=== PATIENT | female | born 1955 | race Caucasian/White ===

== ENCOUNTER 2020-11-07 13:04 | Day surgery (SDC) | payer MEDICARE ==
[2020-11-04 10:21] VITALS: BMI 29.2
[~2020-11-07 13:04] MED LIST: ACETAMINOPHEN TAB 500 MG TAB PO PRN; DEXAMETHASONE SOD PHOSPHATE 4 MG/ML 1 ML VIAL IV ONE; HYDROcodone/APAP 7.5-325MG 1 EACH TAB PO PRN; HYDROmorphone 0.2 MG/1 ML SYRINGE IVP PRN; HYDROmorphone 0.5 MG/0.5 ML SYRINGE IVP PRN; METOCLOPRAMIDE 5 MG/ML 2 ML VIAL IVP PRN; ONDANSETRON 4 MG/2 ML VIAL IVP ONE; ONDANSETRON 4 MG/2 ML VIAL IVP PRN; PROCHLORPERAZINE SUPPOSITORY 25 MG SUPP RECTAL PRN; ROPIVACAINE/EPI/CLONIDINE/KET 50 ML SYRINGE MISCELLANE PRN; SENNOSIDES-DOCUSATE SODIUM 1 EACH TAB PO PRN; TRANEXAMIC ACID 1,000 MG in SODIUM CHLORIDE 0.9% 100 ML IVPB PRN; diphenhydrAMINE 25 MG CAP PO PRN; hydrOXYzine pamoate 25 MG CAP PO PRN
[2020-11-07] MEDS ORDERED: LIDOCAINE 1% (10MG/ML) FOR IV START INTRADERMA ONE (13:58)
[2020-11-07] MEDS: LACTATED RINGERS 1,000 ML IV SCH ×3 (13:58→21:46)
[2020-11-07] MEDS ORDERED: MIDAZOLAM 2 MG/2 ML VIAL IVP ONE (14:14)
[2020-11-07] MEDS ORDERED: SODIUM CHLORIDE 0.9% 100 ML BAG ONE (14:19)
[2020-11-07] MEDS ORDERED: HYDROmorphone (PF) 1 MG/ML ONE (14:19)
[2020-11-07] MEDS ORDERED: SUCCINYLCHOLINE CHLORIDE 100 MG/5 ML SYR IV ONE (14:19)
[2020-11-07] MEDS ORDERED: TRANEXAMIC ACID 1,000 MG/10 ML VIAL ONE (14:19)
[2020-11-07] MEDS ORDERED: MIDAZOLAM 2 MG/2 ML VIAL ONE (14:19)
[2020-11-07] MEDS ORDERED: LIDOCAINE 1% INJ 10MG/ML (20 ML MDV) ONE (14:19)
[2020-11-07] MEDS ORDERED: PHENYLEPHRINE-0.9% NACL SYG 1,000 MCG/10 ML SYRINGE ONE (14:19)
[2020-11-07] MEDS ORDERED: PROPOFOL 10 MG/ML 20 ML VIAL IV ONE (14:19)
[2020-11-07] MEDS ORDERED: fentaNYL (PF) 50 MCG/ML 2 ML AMP ONE (14:19)
[2020-11-07] MEDS ORDERED: ceFAZolin 1,000 MG in SODIUM CHLORIDE 0.9% 1,000 ML IRRIGATION ONE (14:59)
--- NOTE | 2020-11-07 16:40 | FL ---
Fluoroscopy and limited right shoulder HISTORY: Pain 63 seconds fluoroscopy time supplied to the referring clinician. 3 intraoperative C-arm images docum ent the procedure. See dictated report from orthopedic surgery.
[2020-11-07] MEDS: HYDROmorphone 0.5 MG/0.5 ML SYRINGE IVP PRN ×3 (16:59→17:09)
[2020-11-07] MEDS ORDERED: ONDANSETRON 4 MG/2 ML VIAL IVP ONE (17:18)
[2020-11-07] MEDS ORDERED: MEPERIDINE 50 MG/ML SYRINGE IVP ONE (17:37)
[2020-11-07] MEDS: HYDROcodone/APAP 7.5-325MG 1 EACH TAB PO PRN ×2 (18:32→23:15)
--- NOTE | 2020-11-07 20:06 | XR ---
EXAMINATION TYPE: XR shoulder limited RT DATE OF EXAM: 11/07/2020 COMPARISON: NONE HISTORY: . Post op. TECHNIQUE: Single frontal view of the right shoulder obtained FINDINGS/IMPRESSION: Patient is status post plate and screw fixation of the comminuted right humeral head fracture deformity. Numerous displaced osseous fragments redemonstrated. Soft tissue gas and cut aneous irregularity as expected postoperatively. No unexpected radiopaque foreign body.
[2020-11-07] MEDS ORDERED: MONTELUKAST 10 MG TAB PO SCH (21:58)
--- NOTE | 2020-11-07 23:10 | OP ---
OPERATIVE REPORT DATE OF PROCEDURE: 11/07/2020. SURGEON: Sekou Martínez MD. WELDER/INSTALLER: Farshad SALINAS. PREOPERATIVE DIAGNOSIS: Right displaced 2 part proximal humerus fracture. POSTOPERATIVE DIAGNOSIS: Right displaced 2 part proximal humerus fracture. PROCEDURE PERFORMED: Open reduction, internal fixation, right proximal humerus fracture. ANESTHESIA: General endotracheal. ESTIMATED BLOOD LOSS: Was 250 mL. TOURNIQUET: None. DRAINS: None. COMPLICATIONS: None apparent. DISPOSITION: Postanesthesia care unit. INDICATIONS: Aline is a very pleasant 64-year-old female who tripped and fell over a dog a little over 2 weeks ago per history. She initially presented to the emergency department. She was put in a sling and then discharged from the emergency department. She did end up in our office. She was first seen by one of our physician assistants and then she was referred to me for definitive management. She did have a completely displaced two part proximal humerus fracture. Recommendation was for open reduction internal fixation of her proximal humerus fracture. Of note, she does have many allergies. One allergy in particular that she was very adamant about was that she was ALLERGIC TO BONE CEMENT. Apparently she had some preoperative testing in the past and she was ALLERGIC TO BONE CEMENT. I did explain to her that this would likely preclude her from an arthroplasty option for fracture. As such, the recommendation was to go forward with an open reduction and internal fixation. The risks of procedure were discussed with her in detail. These risks included, but were not limited to risk of infection, nerve damage, bleeding, pain, and a small risk of deep vein thrombosis which could lead to fatal pulmonary embolism. Further risks include lack of healing of the fracture, failure of the hardware, symptomatic hardware, avascular necrosis of the humeral head, and stiffness in the arm. The patient understands the operation as well as the fact that there is no guarantee of improvement of her symptoms. Appropriate informed consent was obtained. DESCRIPTION OF PROCEDURE: The patient identified in the preoperative holding area. Surgical sites marked by both the patient and myself. She was given 2 grams of Ancef IV for prophylactic purposes. She was then transported to the operative suite. She was placed supine on the operative table. A general anesthetic was then administered and dosed per the anesthesia without apparent complication. She was then placed into the beach chair position well-padded in preparation for surgery. Great care was taken to ensure that her cervical spine is in neutral alignment, well-padded and maintained that way throughout the operative procedure. Great care was taken to ensure that her legs were appropriately padded as well. The patient's right upper extremity was then prepped and draped in usual sterile fashion. Standard surgical pause undertaken to ensure that appropriate preoperative antibiotics were given and that we were operating on the correct site. All staff in the room were in agreement. We proceeded. The outlines of the of the acromion, AC joint, and coracoid were marked with a surgical pen. Approximate 10-12 cm excisions extending from the level of the clavicle and extending distally towards the deltoid tuberosity was then made. This was approximately 1 cm lateral to the coracoid. An incision was then made with a 10 blade scalpel. Dissection carried down to the deltoid fascia. Hemostasis was achieved with electrocautery. The deltopectoral interval was then identified. The cephalic vein was identified. It was preserved and left in its bed medially. It was protected throughout the remainder of the case. She had tremendous amount of scarring hemorrhagic bursa in the subdeltoid space. There was no hematoma. I do believe that this fracture was likely older than she had let on as far as the date of her injury at this point. There was a fairly significant amount of early callus formation which had started to form as well. An extensive dissection was then carried out to remove as much hemorrhagic bursa and as much early callus as possible. It was very difficult to mobilize the shaft as well as the humeral head. I was finally able to begin this after extensive lysis of adhesions, and removal of callus. I was able to mobilize the shaft and move it posterior and laterally and I was able to start to move the head back into varus. Once I was able to utilize a bone hook to bring the shaft underneath the humeral head. I then provisionally fixed the FX with 2 2.0 mm K-wires. Fluoroscopy was brought in. Had a fairly good reduction. The head was brought back into a more anatomic version and the shaft had been placed back underneath the humeral head. At this point, I proceeded with fixation. I utilized a Synthes proximal humeral locking plate. Again fluoroscopy was utilized to assess the height of the plate. I then proceeded to place a 3.5 mm bicortical nonlocking screw through the oblong hole distally in the plate. This allowed me to move the plate superior and inferiorly if need be. When I was happy with the position of the plate via fluoroscopic imaging, I proceeded to place multiple locking screws in the humeral head. These were placed deep in the humeral head. Again, they were placed with fluoroscopic imaging to ensure that they did not penetrate the articular surface of the humeral head. I then proceeded to fix the shaft of the plate. I utilized a bone hook to bring the shaft out as much as possible and then tightened the 3.5 mm bicortical nonlocking screw. I then placed an oblong cannulated screw which went up through the shaft and into the inferior calcar and then placed a final 3.5 mm bicortical locking screw in the distal hole of the plate. This provided good fixation of the plate to the shaft. Final fluoroscopic images were taken. The shoulder was taken through range of motion. Under fluoroscopy, the head and shaft moved as a unit. The plate was appropriately placed all of the screw. None of the screws penetrated the articular surface. At this point in time, no further work was deemed necessary. The wound was thoroughly irrigated with sterile saline solution with antibiotic added. The deltopectoral interval was loosely reapproximated with 0 Vicryl interrupted suture. Subcutaneous tissue closed with 2-0 Vicryl interrupted suture. The skin was closed with a running 3- 0 Quill suture. Dermabond was applied to the incision. Compressive sterile dressing was then applied. The patient's right upper extremity was placed into a standard sling. All sponge and needle counts were deemed correct prior to closure. The patient tolerated the procedure without apparent complication. She was transferred recovery room in stable condition. MMODL / IJN: [id number] /
[2020-11-07] MEDS: OXYBUTYNIN 15 MG TAB.ER.24 PO SCH (23:14)
[2020-11-07] MEDS: OLANZapine 10 MG TAB PO SCH (23:15)
[2020-11-08] MEDS: HYDROmorphone 0.5 MG/0.5 ML SYRINGE IVP PRN ×3 (04:23→16:21)
[2020-11-08] MEDS: HYDROcodone/APAP 7.5-325MG 1 EACH TAB PO PRN ×3 (05:46→19:50)
[2020-11-08] MEDS: LACTATED RINGERS 1,000 ML IV SCH ×3 (06:03→17:00)
[2020-11-08 06:04] LABS: Basophils % (A) 0 %; Eosinophils % (A) 0 %; HGB 10.3 gm/dL (11.4-16.0); Lymphocytes # (A) 2.1 k/uL (1.0-4.8); Lymphocytes % (A) 21 %; MCH 32.3 pg (25.0-35.0); MCHC 32.2 g/dL (31.0-37.0); MCV 100.4 fL (80.0-100.0); Macrocytosis Slight; Mean Platelet Volume 7.3; Monocytes # (A) 0.7 k/uL (0-1.0); Monocytes % (A) 7 %; Neutrophils % (A) 70 %; Platelet Count 411 k/uL (150-450); RBC 3.19 m/uL (3.80-5.40); RDW 13.9 % (11.5-15.5)
[2020-11-08] MEDS: LISINOPRIL-HCTZ 10-12.5 MG 1 EACH TAB PO SCH (09:18)
[2020-11-08] MEDS: buPROPion SR 150 MG TABLET.ER PO SCH (09:18)
[2020-11-08] MEDS: DULoxetine HCL 30 MG CAPSULE.DR PO SCH (09:18)
--- NOTE | 2020-11-08 14:47 | P.PN ---
Subjective Progress Note Date: 11/08/20 Principal diagnosis: Right proximal humerus fracture Patient is seen at bedside this morning. She is postop day #1 from ORIF right proximal humerus. She has pain at the surgical site as expected but denies any new complaints. She denies numbness, tingling or calf pain. Review of systems is negative for fever, chills, chest pain, shortness of breath or other Objective - Vital Signs Vital signs: Vital Signs Temp 97.9 F 11/08/20 11:20 Pulse 104 H 11/08/20 11:20 Resp 16 11/08/20 11:20 BP 134/80 11/08/20 11:20 Pulse Ox 91 L 11/08/20 11:20 Intake & Output 11/07/20 11/08/20 11/08/20 18:59 06:59 18:59 Intake Total 951 930 Output Total 250 Balance 701 930 Weight 71.5 kg Intake: IV 951 Intake, IV Titration 340 Amount Lactated Ringers 1,000 ml 240 @ 20 mls/hr IV .Q24H [facility] Rx#:[id number] ceFAZolin 2 gm In Sodium 100 Chloride 0.9% 50 ml @ 100 mls/hr IVPB Q8H [facility] Rx#: [id number] Oral 590 Output: Estimated Blood Loss 250 Other: # Voids 2 - Exam Inspection reveals a benign surgical wound. There is no active bleeding or drainage. Neurovascular status is intact throughout the upper extremity with motor and sensation fully intact. Calves is soft and nontender. 2+ radial pulse and less than 2 second cap refill is present. - Constitutional General appearance: Present: no acute distress - Labs CBC & Chem 7: 11/08/20 05:11 Labs: Abnormal Lab Results - Last 24 Hours (Table) 11/08/20 Range/Units 05:11 RBC 3.19 L (3.80-5.40) m/uL Hgb 10.3 L (11.4-16.0) gm/dL Hct 32.0 L (34.0-46.0) % MCV 100.4 H (80.0-100.0) fL Assessment and Plan (1) Fracture of proximal end of right humerus Narrative/Plan: She will continue with routine postop orthopedic protocol including pain management, wound care, DVT prophylaxis and medical management. Expect that she will transfer to home tomorrow Current Visit: Yes Status: Acute Priority: Medium Code(s): S42.201A - UNSP FRACTURE OF UPPER END OF RIGHT HUMERUS, INIT SNOMED Code(s): 390559822 Time with Patient: Less than 30
[2020-11-08] MEDS: MONTELUKAST 10 MG TAB PO SCH (19:49)
[2020-11-08] MEDS: OLANZapine 10 MG TAB PO SCH (19:51)
[2020-11-08] MEDS: OXYBUTYNIN 15 MG TAB.ER.24 PO SCH (19:51)
[2020-11-09] MEDS: HYDROcodone/APAP 7.5-325MG 1 EACH TAB PO PRN ×3 (02:00→17:59)
[2020-11-09] MEDS: LACTATED RINGERS 1,000 ML IV SCH ×4 (03:09→20:54)
[2020-11-09] MEDS: HYDROmorphone 0.5 MG/0.5 ML SYRINGE IVP PRN (03:35)
[2020-11-09] MEDS: buPROPion SR 150 MG TABLET.ER PO SCH (08:56)
[2020-11-09] MEDS: LISINOPRIL-HCTZ 10-12.5 MG 1 EACH TAB PO SCH (08:56)
[2020-11-09] MEDS: DULoxetine HCL 30 MG CAPSULE.DR PO SCH (08:56)
--- NOTE | 2020-11-09 09:41 | P.PN ---
Subjective Progress Note Date: 11/09/20 This patient is a 64-year-old female who is status-post ORIF of the right proximal humerus on 11/07/[address] Martínez. Patient is seen and examined bedside this morning. The patient continues to use of IV Dilaudid for pain control. Her last dose was around 3 AM this morning. The patient states her pain is currently well-controlled although her right shoulder is very sore. She is ambulating to the bathroom and around her room without issues. She is tolerating her diet well. She is urinating freely. She has not yet had a bowel movement since surgery, although she denies abdominal pain. Patient notes numbness of the right hand and fingers, although this is chronic and has been present long before her fracture and recent surgery. She denies chest pain, shortness breath, nausea, vomiting, fevers, chills. Patient has been mildly tachycardic, vital signs stable. Objective - Vital Signs Vital signs: Vital Signs Temp 98.3 F 11/09/20 04:14 Pulse 101 H 11/09/20 04:14 Resp 16 11/09/20 04:14 BP 110/68 11/09/20 04:14 Pulse Ox 93 L 11/09/20 04:14 Intake & Output 11/08/20 11/09/20 11/09/20 18:59 06:59 18:59 Intake Total 600 350 Output Total 550 Balance 600 -200 Intake: Oral 600 350 Output: Urine 550 Other: # Voids 2 - Exam On examination, the patient is sitting up at the bedside in no apparent distress. She is alert and oriented 3. On inspection of the right shoulder, there is a sling in place. There is a clean, dry, intact surgical dressing in place of the right shoulder. No bleeding or drainage through the dressing. There is diffuse swelling of the right arm. There is moderate pain with palpation of the surgical site. The soft tissue of the proximal arm is soft and compressible. The right upper extremity is warm and well-perfused with brisk capillary refill distally. There is no pain with passive range of motion of the right wrist. Motor and sensory function is intact of the right upper extremity. Calves are soft and nontender to palpation bilaterally, no evidence of DVT. - Labs CBC & Chem 7: 11/08/20 05:11 Assessment and Plan Assessment: Status-post ORIF right proximal humerus fracture on 11/07/[address] Martínez. Post-operative day #2. Plan: - Continue sling immobilization of the right upper extremity. Patient is nonweightbearing on the right upper extremity. - [place] 7.5/325 mg for pain control. I discussed discontinuing IV Dilaudid with the patient. Continue intermittent icing of the right shoulder for swelling and pain control. - Medical management per internal medicine. - Anticipate discharge home tomorrow.
[2020-11-09 12:33] VITALS: TEMP 98.2
--- NOTE | 2020-11-09 16:38 | CONS ---
CONSULTATION DATE OF SERVICE: 11/09/2020 REASON FOR CONSULTATION: Advice regarding COPD, hypertension, multiple medical issues, requested by Dr. Martínez. HISTORY OF PRESENT ILLNESS: This 64-year-old woman with the past medical history of COPD, hypertension, history of DJD, history of right fractured humerus being followed by Dr. Cynthia Lora in the outpatient setting. Underwent ORIF of the right proximal humerus fracture. The patient is complaining of some pain otherwise. Patient closely monitored. There is no history of fever, rigors, chills. No headache, loss of consciousness or seizures at this time. PAST MEDICAL HISTORY: History of COPD, hypertension, DJD, history of ADHD and anxiety. MEDICATIONS: Home medications are Ditropan, Wellbutrin, Anoro Ellipta, Zyprexa, Singular, Zestoretic, vitamin D2, Adderall, Cymbalta, Ventolin, [place] and Colace. ALLERGIES: BONE CEMENT, DAPTOMYCIN, DOXYCYCLINE, VANCOMYCIN, MORPHINE. FAMILY HISTORY: History of brain cancer in the family. SOCIAL HISTORY: History of smoking. History of THC. REVIEW OF SYSTEMS: ENT: No diminished vision or hearing. CARDIOVASCULAR: No angina. RESPIRATORY: As mentioned earlier. GI: As mentioned earlier. : No dysuria. NERVOUS SYSTEM: No numbness or weakness. ALLERGY/IMMUNOLOGY: No asthma or hayfever. MUSCULOSKELETAL: As mentioned earlier. HEMATOLOGY: No history of anemia. ENDOCRINE: No history of diabetes. CONSTITUTIONAL: As mentioned earlier. DERMATOLOGY: Negative. RHEUMATOLOGY: Negative. PSYCHIATRY: As mentioned earlier. PHYSICAL EXAMINATION: GENERAL: Patient is alert and oriented times three. VITAL SIGNS: Pulse 61, blood pressure 110/68, respirations 16, temperature 98.3, pulse ox 92% on room air. HEENT: Conjunctivae normal. Oral mucosa moist. NECK: No jugular venous distention. No carotid bruits. No lymph node enlargement. RESPIRATORY: Breath sounds diminished at the bases. A few rhonchi, no crackles. HEART: S1 and S2, muffled. ABDOMEN: Soft, no tenderness. No masses palpable. EXTREMITIES: No edema, no swelling. Arm is status post fracture surgery. NERVOUS: No focal deficits. LYMPHATICS: No lymph nodes palpable in the neck or axillae. SKIN: No rashes. JOINTS: No active deforming arthropathy. LABS: WBC 10.3. Previous chemistry within normal limits. ASSESSMENT: 1. Status post open reduction and internal fixation of the right proximal humerus fracture. 2. Chronic obstructive pulmonary disease. 3. Hypertension. 4. History of degenerative joint disease. 5. History of multiple bruises in the fall. 6. History of MRSA. 7. History of degenerative joint disease. 8. History of ADD/ADHD. 9. History of anxiety and depression. 10.History of nicotine dependence. 11.FULL CODE. RECOMMENDATIONS AND DISCUSSION: In this 64-year-old year old woman presented after surgery, at this time I recommend continue the current medications. Resume the home medications. Incentive spirometry. DVT prophylaxis. Will follow the patient closely with you and patient may be asked to follow with Dr. Cynthia Lora closely after discharge. Thank you Dr. Martínez for letting us participate in the care of this patient. MMSTACIL / IJN: [id number] / MTDChristelle
[2020-11-09] MEDS: OXYBUTYNIN 15 MG TAB.ER.24 PO SCH (20:53)
[2020-11-09] MEDS: OLANZapine 10 MG TAB PO SCH (20:53)
[2020-11-09] MEDS: MONTELUKAST 10 MG TAB PO SCH (20:53)
[2020-11-10] MEDS: HYDROcodone/APAP 7.5-325MG 1 EACH TAB PO PRN ×3 (00:20→12:15)
[2020-11-10] MEDS: DULoxetine HCL 30 MG CAPSULE.DR PO SCH (09:35)
[2020-11-10] MEDS: buPROPion SR 150 MG TABLET.ER PO SCH (09:36)
[2020-11-10] MEDS: LISINOPRIL-HCTZ 10-12.5 MG 1 EACH TAB PO SCH (09:39)
--- NOTE | 2020-11-10 09:54 | P.DS ---
Providers Expected date of discharge: 11/10/20 Attending physician: Sekou Martínez Consults: 11/07/20 11:45 Consult Physician Routine Consulting Provider: Juan Pablo Ogden Consult Reason/Comments: post op medical management Do you want consulting provider notified?: Yes Primary care physician: Cynthia Lora [facility] Course: This patient is a 64-year-old female who sustained a fall resulting in a right proximal humerus fracture. Patient was initially seen in the office by Dr. Martínez and surgery was recommended. Patient underwent an open reduction and internal fixation of the right proximal humerus fracture on 11/07/[address] Martínez. The procedure is performed without complication or sequelae. The patient is doing well postoperatively. Vital signs and labs are stable on postop day #3. The patient is examined bedside this morning. Patient states her pain is well- controlled. She has discontinued the IV Dilaudid. She has been taking [place] 7.5 mg every 6 hours, and is doing well. She is ambulating around her room without issues. She is urinating freely, she has not yet had a bowel movement although she denies abdominal pain. She is tolerating her diet well. She denies chest pain, shortness breath, nausea, vomiting, fevers, chills. She is overall doing very well today without complaint to return home. On examination, the patient is sitting on the edge of the bed in no acute distress. Patient is alert and orientated x3. On inspection of the right arm, there is a clean, dry, intact surgical dressing in place. There is no bleeding or drainage the dressing. The right upper extremity is currently immobilized in a sling. There is mild pain with palpation of the surgical site. The proximal arm soft tissue is soft and compressible. Motor and sensory function is intact of the right upper extremity. Right upper extremity warm and well-perfused with brisk capillary refill distally. The calves are soft and nontender to palpation bilaterally. The patient is discharged to home today, pending medical clearance. Please refer to the med rec for accurate list of medications. Patient Condition at Discharge: Fair Plan - Discharge Summary Discharge Rx Participant: Yes New Discharge Prescriptions: New HYDROcodone/APAP 7.5-325MG [[place] 7.5-325] 1 - 2 tab PO Q6H PRN #42 tab PRN Reason: Pain Docusate [Colace] 100 mg PO BID #60 capsule No Action buPROPion SR [Wellbutrin SR] 150 mg PO QAM Oxybutynin Chloride [Ditropan XL] 15 mg PO BID Lisinopril-Hctz 10-12.5 mg [Zestoretic 10-12.5] 1 tab PO QAM Albuterol Nebulized [Ventolin Nebulized] 2.5 mg INHALATION RT-Q4H PRN #0 nebu PRN Reason: SOB/Wheezing Montelukast [Singulair] 10 mg PO HS DULoxetine HCL [Cymbalta] 90 mg PO DAILY Dextroamphetamine/Amphetamine [Adderall] 10 mg PO DAILY OLANZapine [ZyPREXA] 10 mg PO HS Ergocalciferol (Vitamin D2) [Vitamin D2 (50,000 Iu)] 1,250 mcg PO TU Umeclidinium Brm/Vilanterol Tr [Anoro Ellipta 62.5-25 Mcg INH] 1 puff INHALATION DAILY Albuterol Inhaler [Ventolin Hfa Inhaler] 2 puff INHALATION RT-QID PRN PRN Reason: Shortness Of Breath Discharge Medication List buPROPion SR [Wellbutrin SR] 150 mg PO QAM 06/27/15 [History] Lisinopril-Hctz 10-12.5 mg [Zestoretic 10-12.5] 1 tab PO QAM 07/15/15 [History] Oxybutynin Chloride [Ditropan XL] 15 mg PO BID 07/15/15 [History] Albuterol Nebulized [Ventolin Nebulized] 2.5 mg INHALATION RT-Q4H PRN #0 nebu 07/25/15 [Rx] Albuterol Inhaler [Ventolin Hfa Inhaler] 2 puff INHALATION RT-QID PRN 11/04/20 [History] DULoxetine HCL [Cymbalta] 90 mg PO DAILY 11/04/20 [History] Dextroamphetamine/Amphetamine [Adderall] 10 mg PO DAILY 11/04/20 [History] Ergocalciferol (Vitamin D2) [Vitamin D2 (50,000 Iu)] 1,250 mcg PO TU 11/04/20 [History] Montelukast [Singulair] 10 mg PO HS 11/04/20 [History] OLANZapine [ZyPREXA] 10 mg PO HS 11/04/20 [History] Umeclidinium Brm/Vilanterol Tr [Anoro Ellipta 62.5-25 Mcg INH] 1 puff INHALATION DAILY 11/04/20 [History] Docusate [Colace] 100 mg PO BID #60 capsule 11/10/20 [Rx] HYDROcodone/APAP 7.5-325MG [[place] 7.5-325] 1 - 2 tab PO Q6H PRN #42 tab 11/10/20 [Rx] Follow up Appointment(s)/Referral(s): Sekou Martínez MD [STAFF PHYSICIAN] - 10 Days Activity/Diet/Wound Care/Special Instructions: Keep wound clean and dry Take meds as directed Follow-up with Dr. Martínez in office Nonweightbearing right upper extremity Maintain sling May shower in 3 days if no bleeding Discharge Disposition: HOME SELF-CARE
[2020-11-10 13:05] VITALS: BP 119/76; PULSE 81; RESP 16
--- NOTE | 2020-11-10 17:37 | PN ---
PROGRESS NOTE DATE OF SERVICE: 11/10/2020 INTERVAL HISTORY: This 64-year-old woman was admitted after ORIF is improving significantly. Blood pressure is slightly lower than normal. No chest pain. No palpitations. No fever. PHYSICAL EXAMINATION: GENERAL: Patient is alert and oriented times three. VITAL SIGNS: Pulse 81, blood pressure 119/76, respirations 16, temperature 98.2, pulse ox 97% on room air. HEENT: Conjunctivae normal. Oral mucosa moist. NECK: No jugular venous distention. No carotid bruits. RESPIRATORY: Breath sounds diminished at the bases. No rhonchi, no crackles. HEART: S1 and S2, muffled. ABDOMEN: Soft, no tenderness. No masses palpable. EXTREMITIES: No edema, no swelling. Status post surgery. LABS: Noted. ASSESSMENT: 1. Status post ORIF of the right proximal humerus fracture. 2. Chronic obstructive pulmonary disease. 3. Relative hypotension. 4. History of hypertension. 5. History of degenerative joint disease. 6. History of multiple bruises and falls. 7. History of MRSA. 8. History of degenerative joint disease. 9. History of ADD, ADHD. 10.History of anxiety, depression. 11.History of nicotine dependence. 12.FULL CODE. RECOMMENDATIONS AND DISCUSSION: Recommend to continue current management and continue symptomatic treatment. Recommend to monitor the blood pressure twice daily and follow up closely with primary physician. Hold blood pressure meds if systolic less than 110 mmHg. Further recommendations to follow. MMODL / IJN: [id number] /
== END 2020-11-10 12:50 | disposition home or self-care (01) ==
LOC: OR 13:04 → 5NMEDONC 17:21 → OR 11-10 12:50
PROVIDERS: ATTEND Orthopaedic Surgery Sports Medicine
DX: S42.211A Unspecified displaced fracture of surgical neck of right humerus, initial encounter for closed fracture (principal); W01.0XXA Fall on same level from slipping, tripping and stumbling without subsequent striking against object, initial encounter; I10 Essential (primary) hypertension; F32.9 Major depressive disorder, single episode, unspecified; R45.0 Nervousness; J98.4 Other disorders of lung; I95.9 Hypotension, unspecified; R26.81 Unsteadiness on feet; Z87.891 Personal history of nicotine dependence; J44.9 Chronic obstructive pulmonary disease, unspecified; Z91.81 History of falling; F41.9 Anxiety disorder, unspecified; M19.90 Unspecified osteoarthritis, unspecified site; F90.9 Attention-deficit hyperactivity disorder, unspecified type; Z97.3 Presence of spectacles and contact lenses; Z90.710 Acquired absence of both cervix and uterus; Z98.890 Other specified postprocedural states; Z79.891 Long term (current) use of opiate analgesic; Z79.899 Other long term (current) drug therapy; Z88.6 Allergy status to analgesic agent; Z88.1 Allergy status to other antibiotic agents; Z88.8 Allergy status to other drugs, medicaments and biological substances; Z91.09 Other allergy status, other than to drugs and biological substances
CPT/HCPCS: 85025; 87635; 73020; 23615; C1713; J2250; J1100; J2175; S0106 ×2; J0690 ×3; J2405; J2001; J3010; J1170 ×3; J2370; J0330; J2704

== ENCOUNTER 2021-01-09 03:22 | Inpatient (IN) | payer MEDICARE ==
--- NOTE | 2021-01-09 03:34 | ED ---
Recheck HPI - General Stated Complaint: Right shoulder injury Time Seen by Provider: 01/09/21 03:27 Source: RN notes reviewed, old records reviewed Mode of arrival: EMS Limitations: no limitations - History of Present Illness Initial Comments: This is a 65-year-old female DF for evaluation patient Dese for evaluation of shoulder pain right shoulder pain history of shoulder surgery possible shoulder dislocation. Patient is any pain and swelling and tenderness to the right mickey ulder. Difficulty with range of motion of the right shoulder. Patient is transferred for evaluation by her orthopedic surgeon at this hospital MD Complaint: wound re-check -: hour(s) Returns Today for: needs IV antibiotics, persistent/worsening pain related to initial visit Symptoms Since Prior Visit: worsening pain, worsening swelling, worsening redness Associated Symptoms: none Treatments Prior to Arrival: Given Pain Meds on - Related Data Home Medications Medication Instructions Recorded Confirmed buPROPion SR [Wellbutrin SR] 150 mg PO QAM 06/27/15 01/09/21 Lisinopril-Hctz 10-12.5 mg 1 tab PO QAM 07/15/15 01/09/21 [Zestoretic 10-12.5] Oxybutynin Chloride [Ditropan XL] 15 mg PO BID 07/15/15 01/09/21 Albuterol Inhaler [Ventolin Hfa 2 puff INHALATION RT-QID PRN 11/04/20 01/09/21 Inhaler] DULoxetine HCL [Cymbalta] 60 mg PO BID 11/04/20 01/09/21 Ergocalciferol (Vitamin D2) 1,250 mcg PO TU 11/04/20 01/09/21 [Vitamin D2 (50,000 Iu)] Montelukast [Singulair] 10 mg PO HS 11/04/20 01/09/21 OLANZapine [ZyPREXA] 10 mg PO HS 11/04/20 01/09/21 Umeclidinium Brm/Vilanterol Tr 1 puff INHALATION RT-DAILY 11/04/20 01/09/21 [Anoro Ellipta 62.5-25 Mcg INH] Baclofen [Lioresal] 10 mg PO BID 01/09/21 01/09/21 Docusate [Colace] 100 mg PO BID PRN 01/09/21 01/09/21 Lisdexamfetamine Dimesylate 50 mg PO QAM 01/09/21 01/09/21 [Vyvanse] Pregabalin [Lyrica] 150 mg PO BID 01/09/21 01/09/21 hydrOXYzine pamoate [hydrOXYzine 25 mg PO DAILY 01/09/21 01/09/21 PAMOATE] Previous Rx's Medication Instructions Recorded Albuterol Nebulized [Ventolin 2.5 mg INHALATION RT-Q4H PRN #0 07/25/15 Nebulized] nebu ceFAZolin [Kefzol] 2 gm IVP Q8HR #42 vial 01/14/21 HYDROcodone/APAP 10-325MG [[place] 1 tab PO Q4HR PRN #42 tab 01/21/21 10-325] Allergies Allergy/AdvReac Type Severity Reaction Status Date / Time meprobamate [From Equagesic] Allergy Unknown Rash/Hives Verified 01/14/21 15:33 bone cement Allergy per Verified 01/14/21 15:33 allergy testing daptomycin Allergy Rash/Hives Verified 01/14/21 15:33 doxycycline Allergy tongue Verified 01/14/21 15:33 Swelling vancomycin Allergy Rash/Hives Verified 01/14/21 15:33 diazepam [From Valium] AdvReac "sends me Verified 01/14/21 15:33 into orbit" morphine AdvReac "confused" Verified 01/14/21 15:33 Review of Systems ROS Statement: Those systems with pertinent positive or pertinent negative responses have been documented in the HPI. ROS Other: All systems not noted in ROS Statement are negative. Past Medical History Past Medical History: COPD, Hypertension, Musculoskeletal Disorder, Osteoarthritis (OA) Additional Past Medical History / Comment(s): fx rt humerus, arm in sling, states mult bruises from fall History of Any Multi-Drug Resistant Organisms: MRSA Date of last positivie culture/infection: 2019 MDRO Source:: rt thumb Past Surgical History: Hysterectomy, Joint Replacement Additional Past Surgical History / Comment(s): rt hip replacement, laminplasty C3-C-7 Past Anesthesia/Blood Transfusion Reactions: Motion Sickness, Postoperative Nausea & Vomiting (PONV) Past Psychological History: ADD/ADHD, Anxiety, Depression Smoking Status: Former smoker Past Alcohol Use History: None Reported Additional Past Alcohol Use History / Comment(s): quit smoking 08/2020, STARTED SMOKING 1971, SMOKEd 1/2 PPD. Past Drug Use History: Marijuana Additional Drug Use History / Comment(s): STATES MARIJUANA CARD instructed to hold 24 hrs prior - Past Family History Sister(s) Family Medical History: Cancer Additional Family Medical History / Comment(s): BRAIN STEM CANCER General Exam General appearance: alert, in no apparent distress Head exam: Present: atraumatic, normocephalic, normal inspection Eye exam: Present: normal appearance, PERRL, EOMI. Absent: scleral icterus, conjunctival injection, periorbital swelling ENT exam: Present: normal exam, mucous membranes moist Neck exam: Present: normal inspection. Absent: tenderness, meningismus, lymph adenopathy Respiratory exam: Present: normal lung sounds bilaterally. Absent: respiratory distress, wheezes, rales, rhonchi, stridor Cardiovascular Exam: Present: regular rate, normal rhythm, normal heart sounds. Absent: systolic murmur, diastolic murmur, rubs, gallop, clicks GI/Abdominal exam: Present: soft, normal bowel sounds. Absent: distended, tenderness, guarding, rebound, rigid Extremities exam: Present: normal inspection, full ROM, normal capillary refill. Absent: tenderness, pedal edema, joint swelling, calf tenderness Back exam: Present: normal inspection Neurological exam: Present: alert, oriented X3, CN II-XII intact Psychiatric exam: Present: normal affect, normal mood Skin exam: Present: warm, dry, intact, normal color. Absent: rash Course Vital Signs 01/09/21 01/09/21 03:39 05:22 Temperature 99.8 F H Pulse Rate 114 H 100 Respiratory 22 18 Rate Blood Pressure 97/58 104/78 O2 Sat by Pulse 98 95 Oximetry - Reevaluation(s) Reevaluation #1: Medical record is reviewed Transferring paperwork is been reviewed Patient no significant acute distress Patient symptoms improved here in the ER Patient informed of results and questions answered Medical Decision Making - Medical Decision Making 55 female for reevaluation of right shoulder possible dislocation versus postoperative issue. Patient coming in for right shoulder pain pain is now controlled patient can be admitted for surgical evaluation - Lab Data Result diagrams: 01/19/21 05:56 01/19/21 05:56 Lab Results 01/09/21 01/10/21 01/10/21 Range/Units 05:28 09:55 09:55 WBC 13.9 H (3.8-10.6) k/uL RBC 3.39 L (3.80-5.40) m/uL Hgb 11.2 L (11.4-16.0) gm/dL Hct 32.8 L (34.0-46.0) % MCV 96.7 (80.0-100.0) fL MCH 33.0 (25.0-35.0) pg MCHC 34.2 (31.0-37.0) g/dL RDW 14.1 (11.5-15.5) % Plt Count 248 (150-450) k/uL MPV 7.4 Neutrophils % 87 % Lymphocytes % 7 % Monocytes % 4 % Eosinophils % 1 % Basophils % 0 % Neutrophils # 12.1 H (1.3-7.7) k/uL Lymphocytes # 0.9 L (1.0-4.8) k/uL Monocytes # 0.5 (0-1.0) k/uL Eosinophils # 0.1 (0-0.7) k/uL Basophils # 0.0 (0-0.2) k/uL ESR 104 H (0-20) mm/hr Sodium 131 L (137-145) mmol/L Potassium 3.4 L (3.5-5.1) mmol/L Chloride 101 (98-107) mmol/L Carbon Dioxide 23 (22-30) mmol/L Anion Gap 7 mmol/L BUN 18 H (7-17) mg/dL Creatinine 0.47 L (0.52-1.04) mg/dL Est GFR (CKD-EPI)AfAm >90 (>60 ml/min/1.73 sqM) Est GFR (CKD-EPI)NonAf >90 (>60 ml/min/1.73 sqM) Glucose 101 H (74-99) mg/dL Calcium 8.9 (8.4-10.2) mg/dL C-Reactive Protein 31.0 H (<1.0) mg/dL Coronavirus (PCR) Not Detected (Not Detectd) Disposition Clinical Impression: Right shoulder pain, Fracture of proximal end of right humerus, Cellulitis of arm, right Disposition: ADMITTED IP TO THIS HOSP Condition: Fair Is patient prescribed a controlled substance at d/c from ED?: No
[2021-01-09] MEDS ORDERED: HYDROmorphone 1 MG/ML 1 ML SYRINGE IVP STA (03:48)
[2021-01-09] MEDS ORDERED: LORazepam 2 MG/ML INJ IV STA (03:48)
[2021-01-09] MEDS ORDERED: ONDANSETRON 4 MG/2 ML VIAL IVP PRN (03:48)
[2021-01-09] MEDS ORDERED: ONDANSETRON 4 MG/2 ML VIAL IVP STA (03:48)
[2021-01-09] MEDS ORDERED: SODIUM CHLORIDE 0.9% 1,000 ML IV STA (03:49)
[2021-01-09] MEDS: LORazepam 2 MG/ML INJ IV PRN ×2 (07:43→20:34)
--- NOTE | 2021-01-09 12:46 | P.HPOR ---
History of Present Illness H&P Date: 01/09/21 Chief Complaint: Right upper extremity pain and swelling status post fall hi story of ORIF Patient is a pleasant 65-year-old female who is seen and examined today at bedside. Apparently she had a fall at home yesterday when she was getting up to the best shape and had new pain at her right shoulder. She presented to [facility] had evaluation and he transferred her here regards to possible subluxation of her right possible humerus and shoulder. Patient has a recent history 2 months ago on November 07 of over reduction internal fixation of right proximal humerus fracture. This was performed by Dr. Martínez here at [facility]. She apparently did well and was making progress. She had seen Dr. Martínez just a couple weeks ago the office and was continuing to make progress until she fell at home yesterday. She says that she has been having a new urinary tract in fection and feels that made her unsteady on her feet and fell yesterday. She has new swelling of her right upper extremity. She denies any numbness tingling. She denies a loss of consciousness. She denies any fevers chills. At [facility] per the ER they say that they felt she had a subluxation. They said they did some manipulation at her shoulder for reduction without any sedation. There not controlled continue management and transferred her here where she had further evaluation emergency room. Comparison of their films at [place] as well as films from our hospital did not show any obvious change. She was having significant pain and was admitted for observation. Review of Systems As per HPI. She denies any new changes in her hand wrist and fingers. She denies any numbness Fred. She has soreness when she moves her upper extremity. She denies any chest pain or shortness breath. She denies any fevers or chills. She admits to some burning on urination. Past Medical History Past Medical History: COPD, Hypertension, Musculoskeletal Disorder, Osteoarthritis (OA) Additional Past Medical History / Comment(s): Status post open reduction internal fixation on 11/07/20 of her right proximal humerus fx rt humerus- 2 months ago, falls History of Any Multi-Drug Resistant Organisms: MRSA Date of last positivie culture/infection: 2019 MDRO Source:: rt thumb Past Surgical History: Hysterectomy, Joint Replacement Additional Past Surgical History / Comment(s): rt hip replacement, laminectomy C3-C-7 Past Anesthesia/Blood Transfusion Reactions: Motion Sickness, Postoperative Nausea & Vomiting (PONV) Additional Past Anesthesia/Blood Transfusion Reaction / Comment(s): no blod transfusion. Past Psychological History: ADD/ADHD, Anxiety, Depression Smoking Status: Former smoker Past Alcohol Use History: None Reported Additional Past Alcohol Use History / Comment(s): quit smoking 08/2020, STARTED SMOKING 1971, SMOKEd 1/2 PPD. Past Drug Use History: Marijuana Additional Drug Use History / Comment(s): STATES MARIJUANA CARD instructed to hold 24 hrs prior - Past Family History Sister(s) Family Medical History: Cancer Additional Family Medical History / Comment(s): BRAIN STEM CANCER Medications and Allergies Home Medications Medication Instructions Recorded Confirmed Type buPROPion SR [Wellbutrin SR] 150 mg PO QAM 06/27/15 01/09/21 History Lisinopril-Hctz 10-12.5 mg 1 tab PO QAM 07/15/15 01/09/21 History [Zestoretic 10-12.5] Oxybutynin Chloride [Ditropan XL] 15 mg PO BID 07/15/15 01/09/21 History Albuterol Nebulized [Ventolin 2.5 mg INHALATION RT-Q4H PRN #0 07/25/15 01/09/21 Rx Nebulized] nebu Albuterol Inhaler [Ventolin Hfa 2 puff INHALATION RT-QID PRN 11/04/20 01/09/21 History Inhaler] DULoxetine HCL [Cymbalta] 60 mg PO BID 11/04/20 01/09/21 History Ergocalciferol (Vitamin D2) 1,250 mcg PO TU 11/04/20 01/09/21 History [Vitamin D2 (50,000 Iu)] Montelukast [Singulair] 10 mg PO HS 11/04/20 01/09/21 History OLANZapine [ZyPREXA] 10 mg PO HS 11/04/20 01/09/21 History Umeclidinium Brm/Vilanterol Tr 1 puff INHALATION RT-DAILY 11/04/20 01/09/21 History [Anoro Ellipta 62.5-25 Mcg INH] Baclofen [Lioresal] 10 mg PO BID 01/09/21 01/09/21 History Docusate [Colace] 100 mg PO BID PRN 01/09/21 01/09/21 History Lisdexamfetamine Dimesylate 50 mg PO QAM 01/09/21 01/09/21 History [Vyvanse] Pregabalin [Lyrica] 150 mg PO BID 01/09/21 01/09/21 History hydrOXYzine pamoate [hydrOXYzine 25 mg PO DAILY 01/09/21 01/09/21 History PAMOATE] Allergies Allergy/AdvReac Type Severity Reaction Status Date / Time meprobamate [From Equagesic] Allergy Unknown Rash/Hives Verified 01/09/21 07:34 bone cement Allergy per Verified 01/09/21 07:34 allergy testing daptomycin Allergy Rash/Hives Verified 01/09/21 07:34 doxycycline Allergy tongue Verified 01/09/21 07:34 Swelling vancomycin Allergy Rash/Hives Verified 01/09/21 07:34 diazepam [From Valium] AdvReac "sends me Verified 01/09/21 07:34 into orbit" morphine AdvReac "confused" Verified 01/09/21 07:34 Physical Examination Osteopathic Statement: *. No significant issues noted on an osteopathic structural exam other than those noted in the History and Physical/Consult. - Shoulder right Appearance: swelling (She has well-healed incision at her right shoulder. There is diffuse swelling over her right arm. There is some erythema. There is blanching. Her arms are soft.) Tenderness with palpation: anterior (She has diffuse tenderness around her shoulder and upper arm. She has some tenderness over her forearm as well.) Pain: other (She has pain with any motion at her right shoulder. Her neurologic status at her wrist and hand are intact. Pulses are intact.) Results I'm unable to view the images from [facility] on our computers. Her prior imaging from 422 shows up reduction internal fixation there is some inferior subluxation at the right proximal humerus in relation to the glenoid. She has significant fracture which appears to be appropriately fixated. Assessment and Plan Assessment: 2 months status post right proximal humerus fracture open reduction internal fixation on 11/07/2020 New fall at home Right upper extremity swelling Cellulitis right upper extremity Plan: 2 months status post right proximal humerus fracture open reduction internal fixation on 11/07/2020 New fall at home Right upper extremity swelling Cellulitis right upper extremity The patient's proximal humerus fixation appears to be intact we will obtain a new x-ray here as we're unable to view her images from the hospital and I would like to see further views for specific comparison. Nursing if it swelling around her upper extremity which may be normal for her postoperative period however there is some erythema and early cellulitis. With the erythema and blanching I would like to have her on a antibiotic curet further cellulitis changes. We'll start her on antibiotics and keep her overnight for close observation for this. She has some swelling in her right upper extremity which she feels is somewhat new. This may be related to the cellulitis but we should rule out possibility of DVT and we will order a duplex ultrasound of the right upper extremity. We do have an acute plans for surgical intervention at her right shoulder at this point. If she is making progress she may be able to be discharged home with oral antibiotics if her other testing is negative. We will continue to follow her closely. Time with Patient: Greater than 30
--- NOTE | 2021-01-09 14:24 | US ---
EXAMINATION TYPE: US venous doppler duplex UE RT DATE OF EXAM: 01/09/2021 COMPARISON: NONE CLINICAL HISTORY: RUE swelling and pain, s/p ORIF humerus 2 months . Pt having right arm redness, cherri n, swelling s/p right humeral surgery SIDE PERFORMED: Right Visualized portions the right internal jugular vein show color flow and compressibility as do visuali zed portions of the right subclavian vein At the anterior shoulder the site of the surgical incision there is hypoechoic area some low-level in ternal echoes measuring approximately 9.4 cm in greatest transverse dimension. Right cephalic vein sh ows normal color flow and is anechoic, visualized brachial veins also show color flow and compressibi lity. Right Arm: Limited views show no evidence of DVT or SVT, Right axillary, basilic, and ulnar veins n ot visualized due to pt's immobility, right radial veins not visualized due to edema Right anterior shoulder at incision site there is a complex fluid collection= 9.4 cm IMPRESSION: Exam is limited, but no deep venous thrombosis is evident. Correlate for possible hematoma or abscess , seroma at the right shoulder.
--- NOTE | 2021-01-09 15:32 | XR ---
Right shoulder HISTORY: Trauma and pain 3 views of the right shoulder correlated to prior exam 11/07/2020 Open reduction internal fixation changes of the proximal right humerus are again noted. Bone fragment s present about the right shoulder, any similar to prior. There is soft tissue swelling present. Alig nment is maintained. Lucency in the soft tissues is resolved. Right lung apex as visualized is normal . Bone mineralization is reduced. IMPRESSION: No acute fracture or dislocation is evident. Soft tissue swelling.
[2021-01-09] MEDS: HYDROmorphone 1 MG/ML 1 ML SYRINGE IVP PRN ×2 (15:35→20:32)
[2021-01-10] MEDS: HYDROmorphone 1 MG/ML 1 ML SYRINGE IVP PRN ×2 (01:26→16:39)
--- NOTE | 2021-01-10 09:04 | P.PN ---
Progress Note - Text Progress Note Date: 01/10/21 Orthopedics: History of present illness: Patient is a pleasant 65-year-old female who is seen in the bedside for follow up evaluation of her right shoulder. She is known to have recently undergone an ORIF of the right shoulder approximately [address] Sekou Martínez for her right proximal humerus fracture. She followed up with him in outpatient setting approximately 2 weeks ago and had been improving without difficulty postoperatively. She sustained a fall at home on 01/08/2021 and presented to [facility]. She was transferred to [facility] for further evaluation. She's been started on antibiotics. She continues to have swelling and pain in her right upper extremity. She is awake, alert, oriented, answers questions appropriately. She doesn't difficulty using her right upper extremity due to pain. She has no pain with active range of motion of her left upper extremity. She has no other complaints at the bedside. Ultrasound Doppler of the right upper extremity was negative for DVT. X-ray imaging of the right shoulder did show a fluid collection. She is eating and voiding without difficulty but does admit she does not have much of an appetite. Patient's past medical history includes COPD, hypertension, and morbid obesity. Patient has been started on IV antibiotics with Kefzol. Physical Exam: Patient is awake, alert, and oriented 3 Vital signs stable Good chest excursion with deep inspiration and expiration Evidence of a well-healed incision over the right anterior shoulder with no obvious sign of infection Evidence of significant swelling on the right as compared to the left at the shoulder, through the arm, and into the right hand Some difficulty with flexion-extension of the right elbow due to pain Skin is warm to palpation over the right shoulder, humerus, and forearm Neurovascularly intact right upper extremity Patient is able to perform cull grader with the right hand Patient is able to wiggle fingers of the right hand without significant difficulty Evidence of erythema and blanching over the right upper extremity extending to the wrist Pertinent studies: Ultrasound venous Doppler of the right upper extremity taken on 01/09/2021: Exam limited, but no deep vein thrombosis is evident; at the anterior shoulder site of the surgical incision there is a complex fluid collection measuring 9.4 cm X-rays of the right shoulder taken on 01/09/2021: No acute fracture dislocation evidence of occult soft tissue swelling; ORIF changes of the right proximal humerus are again noted; bone fragments present about the right shoulder similar to prior Assessment: Right upper extremity swelling and pain Right upper extremity cellulitis Right shoulder complex fluid collection at the anterior shoulder measuring 9.4 cm Status post ORIF for right proximal humerus fracture approximately 2 months ago Status post fall COPD Hypertension Morbid obesity Plan: 1. Patient continues to have cellulitis the right upper extremity with pain and swelling status post fall. She had been improving postoperatively until her recent fall. She has had difficulty with active range of motion and activities with the right upper extremity due to her pain and swelling. At this time we'll plan to have her continue with Kefzol IV. We will plan to continue pain control with IV Dilaudid as prescribed as needed. Patient has not had significant improvement as compared to yesterday. Ultrasound Doppler of the right upper extremity does not show evidence of DVT. X-ray imaging does not show evidence of fracture or dislocation at the right shoulder. She does have a fluid collection at the right shoulder. Patient will be discussed in detail with Dr. Sekou Martínez to discuss her recent imaging, the patient's physical exam and further treatment options. It was discussed with the patient that she will currently continue to remain in the hospital until her symptoms improve. Patient does feel this is a good plan of care. We also discussed we will plan to follow up with her discuss further treatment options after further discussion with Dr. Sekou Martínez.
[2021-01-10] MEDS: HYDROcodone/APAP 5-325MG 1 EACH TAB PO PRN (10:13)
[2021-01-10 10:42] LABS: Basophils % (A) 0 %; Eosinophils # (A) 0.1 k/uL (0-0.7); Eosinophils % (A) 1 %; HCT 32.8 % (34.0-46.0); HGB 11.2 gm/dL (11.4-16.0); Lymphocytes # (A) 0.9 k/uL (1.0-4.8); Lymphocytes % (A) 7 %; MCHC 34.2 g/dL (31.0-37.0); MCV 96.7 fL (80.0-100.0); Mean Platelet Volume 7.4; Monocytes # (A) 0.5 k/uL (0-1.0); Monocytes % (A) 4 %; Neutrophils # (A) 12.1 k/uL (1.3-7.7); Neutrophils % (A) 87 %; Platelet Count 248 k/uL (150-450); RBC 3.39 m/uL (3.80-5.40); RDW 14.1 % (11.5-15.5); WBC 13.9 k/uL (3.8-10.6)
[2021-01-10 10:43] LABS: African American GFR (CKD) >90 (>60 ml/min/1.73 sqM); Anion Gap 7 mmol/L; Blood Urea Nitrogen 18 mg/dL (7-17); Calcium 8.9 mg/dL (8.4-10.2); Carbon Dioxide 23 mmol/L (22-30); Chloride 101 mmol/L (98-107); Glucose 101 mg/dL (74-99); Non-African American GFR(CKD) >90 (>60 ml/min/1.73 sqM); Potassium 3.4 mmol/L (3.5-5.1); Sodium 131 mmol/L (137-145)
--- NOTE | 2021-01-10 11:13 | XR ---
Right elbow and right forearm HISTORY: Right upper extremity cellulitis 3 views of the right elbow, frontal lateral views of the right forearm and 3 images There is soft tissue swelling present. No periostitis to suggest osteomyelitis. Bone mineralization, joint spaces and alignment are maintained. Views are nonstandard. No evident elbow joint effusion. IMPRESSION: No fracture or dislocation. Soft tissue swelling, correlate for cellulitis.
[2021-01-10 12:29] LABS: Erythrocyte Sedimentation Rate 104 mm/hr (0-20)
[2021-01-10] MEDS ORDERED: Potassium Replacement Protocol 1 EACH MISC MISCELLANE PRN ×2 (15:28→21:39)
[2021-01-10] MEDS: POTASSIUM CHLORIDE ER 20 MEQ TAB.ER PO SCH ×2 (16:33→17:14)
--- NOTE | 2021-01-10 17:49 | CONS ---
CONSULTATION DATE OF SERVICE: 01/10/2021 REASON FOR CONSULTATION: Right upper extremity cellulitis. HISTORY OF PRESENT ILLNESS: The patient is a 65-year-old female who apparently did have a fall about 2 months ago on November 07 in this patient who did have ORIF right proximal humerus fracture. The patient did well postoperatively. However, the patient did have a fall at home the day before presentation to the hospital and fell on her right side. The patient subsequently developed significant pain and swelling of the right shoulder and right upper arm area. The patient presented to [facility] initially and subsequently the patient has been transferred to [facility] for further evaluation. On arrival to the ER, the patient did have a low-grade fever of 99.8 degrees Fahrenheit. The patient did have a white count of 13.9 as of this morning. Creatinine 0.47. The patient did have a Doppler ultrasound of the right upper extremity that was negative for DVT. However did show that at right shoulder incision there is a complex fluid collection 9.4 cm. The patient did have x-rays of the shoulder, which shows no acute fracture, dislocation, evidence soft tissue swelling. The patient DOES HAVE MULTIPLE ANTIBIOTIC ALLERGIES. She was started on cefazolin. Has been admitted to the hospital. Infectious Disease was consulted for further management of antibiotic therapy. The patient currently describes the pain to the right shoulder area to be more of a dull aching to be throbbing, 5 to 6/10 and no radiation. The patient currently did have diffuse tenderness, but no open wound or any drainage. REVIEW OF SYSTEMS: Positive points have been mentioned in HPI. Rest of systems are negative. PAST MEDICAL HISTORY: COPD, hypertension, osteoarthritis, right humerus resection, previous history of MRSA infection, right thumb. PAST SURGICAL HISTORY: Hysterectomy, right hip replacement, right humerus fracture repair. SOCIAL HISTORY: Remote history of smoking. No drinking or drug use. FAMILY HISTORY: Sister with a history of brainstem cancer. ALLERGIES: TO DAPTOMYCIN, DOXYCYCLINE AND VANCOMYCIN. MEDICATIONS: Reviewed and medication currently include the patient is on: [place], cefazolin 2 grams q.8 hours, she is on Dilaudid, Ativan, Zofran. PHYSICAL EXAMINATION: Blood pressure 134/67, pulse of 99, temperature 97.9. She is 96% on room air. General description: The patient is a middle-aged female lying in bed in no distress. HEENT examination: No pallor or scleral icterus. Oral mucous membranes dry. NECK: Trachea central. No thyromegaly. LUNGS unlabored breathing. Clear to auscultation anteriorly. No wheeze or crackles. HEART S1, S2. Regular rate and rhythm. ABDOMEN: Soft. No tenderness. No guarding. No rigidity. EXTREMITIES: No edema of the feet. Examination of the right shoulder area did show diffuse swelling and redness, slightly warm to touch. No fluctuation, induration or any drainage. NEUROLOGICAL: Patient is awake, alert, oriented times three. Mood and affect normal. LABS: Hemoglobin 11.3 with white count 13.9, BUN of 18, creatinine 0.47. X-rays and ultrasound report as mentioned above. DIAGNOSTIC IMPRESSION AND PLAN: 1. Patient admitted to the hospital with right shoulder pain and swelling after a fall in this patient who recently did have a right humerus fracture repair, now with a history of trauma and concerning for possible hematoma. Clinically not behaving as an abscess though not entirely excluded with evidence of fluid collection on the ultrasound. 2. Patient does have multiple antibiotic allergies that limit the number of antibiotics safe to use. PLAN: 1. We will shena the area of the redness. 2. We will continue cefazolin 2 grams q.8 hours. 3. The patient may benefit from aspirate of the fluid collection, should be sent for Gram stain and culture to rule out infected hematoma. 4. We will follow on clinical condition and further adjust medication if needed. Thank you for this consultation, will follow this patient along with you. MMSTACIL / SAARHN: [id number] / SHAAN
[2021-01-10] MEDS ORDERED: DOCUSATE 100 MG CAP PO PRN (20:29)
[2021-01-10] MEDS ORDERED: ALBUTEROL NEBULIZED 2.5 MG/3 ML INHALATION PRN (20:29)
[2021-01-10] MEDS ORDERED: ALBUTEROL HFA INHALER INHALATION PRN (20:29)
[2021-01-10] MEDS: BACLOFEN 10 MG TAB PO SCH (21:22)
[2021-01-10] MEDS: PREGABALIN 75 MG CAP PO SCH (21:22)
[2021-01-10] MEDS: MONTELUKAST 10 MG TAB PO SCH (21:22)
[2021-01-10] MEDS: OXYBUTYNIN 15 MG TAB.ER.24 PO SCH (21:22)
[2021-01-10] MEDS: DULoxetine HCL 60 MG CAPSULE.DR PO SCH (21:22)
[2021-01-10] MEDS: OLANZapine 10 MG TAB PO SCH (21:22)
[2021-01-10] MEDS ORDERED: Magnesium Replacement Protocol 1 EACH MISC MISCELLANE PRN (21:39)
[2021-01-10] MEDS: SODIUM CHLORIDE 0.9% 1,000 ML IV SCH (23:56)
[2021-01-11] MEDS: HYDROmorphone 1 MG/ML 1 ML SYRINGE IVP PRN ×3 (00:22→13:20)
[2021-01-11 00:44] LABS: Appearance,Urine Clear (Clear); Color,Urine Yellow; Protein,Urine Trace (Negative); Specific Gravity,Urine 1.012 (1.001-1.035)
[2021-01-11 00:45] LABS: Bilirubin,Urine Negative (Negative); Blood,Urine Trace (Negative); Glucose,Urine (UA) Negative (Negative); Ketones,Urine Negative (Negative); Leukocyte Esterase,Urine Large (Negative); Mucus,Urine Rare /hpf; Nitrite,Urine Negative (Negative); RBC,Urine 1 /hpf (0-5); Squamous Epithelial Cell,Urine 1 /hpf (0-4); Urobilinogen,Urine <2.0 mg/dL (<2.0); WBC,Urine 60 /hpf (0-5)
[2021-01-11 00:46] LABS: Amphetamine Screen,Urine Not Detected (NotDetected); Barbiturate Screen,Urine Not Detected (NotDetected); Benzodiazepines Screen,Urine Detected (NotDetected); Cocaine Screen,Urine Detected (NotDetected); Methadone Screen, Urine Not Detected (NotDetected); Opiate Screen,Urine Detected (NotDetected); Oxycodone Screen, Urine Not Detected (NotDetected); Phencyclidine Screen,Urine Not Detected (NotDetected); Tricyclic Antidepressant,Urine Not Detected (NotDetected); Urn Cannabinoid Scrn Detected (NotDetected)
[2021-01-11] MEDS: IPRATROPIUM 0.5 MG/2.5 ML NEBU INHALATION SCH ×4 (07:21→20:58)
[2021-01-11] MEDS: FORMOTEROL FUMARATE 20 MCG/2 ML NEBU INHALATION SCH ×2 (07:21→20:58)
--- NOTE | 2021-01-11 07:40 | CONS ---
CONSULTATION DATE OF SERVICE: 01/10/2021. REASON FOR CONSULTATION: Advice regarding hypertension, COPD, and multiple medical issues requested by Orthopedic Surgery. HISTORY OF PRESENT ILLNESS: This 65-year-old woman with a past history of COPD, hypertension, DJD, history of ADD, ADHD, anxiety, depression, being followed by Dr. Ogden in the outpatient setting, underwent open reduction and internal fixation of the right proximal humerus fracture in October this year. The patient apparently fell down, slipped and the patient was complaining of severe pain of the right upper extremity and the patient has noted to have significant cellulitis involving the right upper limb extending all the way down to the mid part of the right forearm. The patient came to [facility] and was admitted for evaluation and treatment. The patient also had venous Doppler which showed no DVT, but some hypoechoic 9.4 cm lesion was noted. No chest pain. No palpitations. No fever. No cough. The patient had multiple lab abnormalities also. PAST MEDICAL HISTORY: History of COPD, hypertension, DJD, history of right shoulder surgery. MEDICATIONS ARE: Hydroxyzine, Lyrica, Zyprexa, Singulair, Zestoretic, Norvir Ellipta, Ditropan, vitamin D2, Colace, Cymbalta, Wellbutrin, Vyvanse. ALLERGIES: BONE CEMENT, DAPTOMYCIN, DOXYCYCLINE, VANCOMYCIN, DYES, MORPHINE. FAMILY HISTORY: History of brain stem cancer. SOCIAL HISTORY: History of smoking, history of THC. REVIEW OF SYSTEMS: ENT: No diminished vision. No diminished hearing. CARDIOVASCULAR: No angina or palpitations. RESPIRATION: As mentioned earlier. GI: No nausea or vomiting. : No dysuria. NERVOUS SYSTEM: No numbness or weakness. ALLERGY/IMMUNOLOGY: No asthma or hayfever. MUSCULOSKELETAL as mentioned earlier. HEMATOLOGY/ONCOLOGY: No history of anemia. ENDOCRINE: No history of diabetes. CONSTITUTIONAL: As mentioned earlier. DERMATOLOGY as mentioned earlier. RHEUMATOLOGY: Negative. PSYCHIATRY: As mentioned earlier. PHYSICAL EXAMINATION: Alert and oriented x3. Pulse is 112. Blood pressure 120/70. Respirations 24, temperature 97.7, pulse ox 94% on room air. HEENT is conjunctivae normal. Oral mucosa moist. NECK: No jugular venous distention. No carotid bruit. No lymph node enlargement. CARDIOVASCULAR system: S1, S2 muffled. No S3, no S4. RESPIRATORY: Breath sounds diminished in the bases. No rhonchi. No crackles. ABDOMEN: Soft, nontender. No mass palpable. LEGS: No edema. No swelling. NERVOUS SYSTEM: Higher functions as mentioned. Moves all four extremities. No focal deficits. LYMPHATICS: No lymph nodes palpable in the neck, axillae or groin. Examination of the right shoulder: Significant tenderness, pain right shoulder and some erythema extending up the right forearm also present. LABS: WBC 13.2, hemoglobin 11.2, sodium 130, potassium 3.4. ASSESSMENT: 1. Acute right leg extensive cellulitis with possible sepsis present on admission. 2. Right shoulder hypoechoic fluid collection. 3. Increased WBC. 4. Anemia, normocytic. 5. Elevated ESR. 6. Hyponatremia. 7. Hypokalemia. 8. History of recent open reduction and internal fixation of the right proximal humerus fracture. 9. History of MRSA. 10.History of chronic obstructive pulmonary disease. 11.Hypertension. 12.History of degenerative joint disease. 13.History of hysterectomy. 14.History of attention-deficit/hyperactivity disorder. 15.History of anxiety, depression. 16.Remote history of nicotine dependence. 17.History of THC, medical marijuana. 18.Obesity with body mass index 62. RECOMMENDATIONS AND DISCUSSION: This 65-year-old woman who presented with multiple complex medical issues, at this time, I recommend continue the current medications, management and symptomatic treatment. Otherwise IV antibiotics. Obtain cultures. Infectious Disease following the patient closely. I also recommend a CT scan of the shoulder and arm also without any contrast. Otherwise, resume the home medications. Prognosis extremely guarded. We will follow the patient closely. Resume the home medications. A copy of this dictation is being forwarded to Dr. Cynthia Lora who is the primary physician. MMODL / IJN: [id number] / MTDChristelle
[2021-01-11] MEDS: OXYBUTYNIN 15 MG TAB.ER.24 PO SCH ×2 (08:33→20:54)
[2021-01-11] MEDS: buPROPion SR 150 MG TABLET.ER PO SCH (08:33)
[2021-01-11] MEDS: BACLOFEN 10 MG TAB PO SCH ×2 (08:33→20:54)
[2021-01-11] MEDS: LISINOPRIL-HCTZ 10-12.5 MG 1 EACH TAB PO SCH (08:33)
[2021-01-11] MEDS: PREGABALIN 75 MG CAP PO SCH ×2 (08:34→20:54)
[2021-01-11] MEDS: PANTOPRAZOLE 40 MG TABLET PO SCH (08:40)
[2021-01-11] MEDS: SODIUM CHLORIDE 0.9% 1,000 ML IV SCH ×2 (08:44→19:15)
[2021-01-11] MEDS: DULoxetine HCL 60 MG CAPSULE.DR PO SCH ×2 (08:47→20:55)
[2021-01-11] MEDS: hydrOXYzine pamoate 25 MG CAP PO SCH (08:48)
[2021-01-11] MEDS: NON FORMULARY DRUG (Lisdexamfetamine Dimesylate [Vyvanse] 50 MG Capsule) PO SCH (08:48)
--- NOTE | 2021-01-11 09:17 | P.PN ---
Subjective Progress Note Date: 01/11/21 Principal diagnosis: Right upper extremity cellulitis The patient is a 65-year-old female who was seen in the bedside for follow up evaluation of her right shoulder. She is known to have recently undergone an ORIF of the right shoulder approximately [address] Sekou Martínez for her right proximal humerus fracture. She followed up with him in outpatient setting approximately 2 weeks ago and had been improving without difficulty postoperatively. She sustained a fall at home on 01/08/2021 and presented to [facility]. She was transferred to [facility] for further evaluation. She's been started on antibiotics. She continues to have swelling and pain in her right upper extremity. She is awake, alert, oriented, answers questions appropriately. She does have difficulty using her right upper extremity due to pain. She has no pain with active range of motion of her left upper extremity. She has no other complaints at the bedside. Ultrasound Doppler of the right upper extremity was negative for DVT but there was a question of fluid collection. X-ray imaging of the right shoulder did show a fluid collection. A CT of the shoulder and arm has been ordered and completed this morning. She is eating and voiding without difficulty but does admit she does not have much of an appetite. Patient's past medical history includes COPD, hypertension, and morbid obesity. She has been seen by Dr. Walker and continues on Kefzol at this time. No new complaints today. Her CRP and sed rate are elevated. Objective - Vital Signs Vital signs: Vital Signs Temp 98.6 F 01/11/21 07:10 Pulse 100 01/11/21 07:39 Resp 16 01/11/21 07:10 BP 121/75 01/11/21 07:10 Pulse Ox 95 01/11/21 07:10 Intake & Output 01/10/21 01/11/21 01/11/21 18:59 06:59 18:59 Intake Total 420 Balance 420 Weight 69 kg Intake: Oral 420 Other: Voiding Method Toilet Diaper # Voids 2 1 - Exam The patient appears in no acute distress. She is alert and oriented 3. Vital signs are stable.Good chest excursion with deep inspiration and expiration. Evidence of a well-healed incision over the right anterior shoulder with no obvious sign of infection. Evidence of significant swelling on the right as compared to the left at the shoulder, through the arm, and into the right hand. A little difficulty with flexion-extension of the right elbow due to pain and swelling. Skin is warm to palpation over the right shoulder, humerus, and forearm. Neurovascularly intact right upper extremity. 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 Patient is able to wiggle fingers and make a loose fist of the right hand without significant difficulty. Evidence of erythema and blanching over the right upper extremity extending to the wrist but does not include the hand. - Labs CBC & Chem 7: 01/11/21 06:13 01/11/21 06:13 Labs: Abnormal Lab Results - Last 24 Hours (Table) 01/10/21 01/10/21 01/11/21 Range/Units 09:55 09:55 00:14 WBC 13.9 H (3.8-10.6) k/uL RBC 3.39 L (3.80-5.40) m/uL Hgb 11.2 L (11.4-16.0) gm/dL Hct 32.8 L (34.0-46.0) % Neutrophils # 12.1 H (1.3-7.7) k/uL Lymphocytes # 0.9 L (1.0-4.8) k/uL ESR 104 H (0-20) mm/hr Sodium 131 L (137-145) mmol/L Potassium 3.4 L (3.5-5.1) mmol/L BUN 18 H (7-17) mg/dL Creatinine 0.47 L (0.52-1.04) mg/dL Glucose 101 H (74-99) mg/dL C-Reactive Protein 31.0 H (<1.0) mg/dL Urine Protein Trace H (Negative) Urine Blood Trace H (Negative) Ur Leukocyte Esterase Large H (Negative) Urine WBC 60 H (0-5) /hpf Urine Mucus Rare H (None) /hpf Urine Opiates Screen Detected H (NotDetected) U Benzodiazepines Scrn Detected H (NotDetected) Urine Cocaine Screen Detected H (NotDetected) U Marijuana (THC) Screen Detected H (NotDetected) Assessment and Plan (1) Cellulitis of arm, right Current Visit: Yes Status: Acute Code(s): L03.113 - CELLULITIS OF RIGHT UPPER LIMB SNOMED Code(s): 149731409 (2) Fracture of proximal end of right humerus Current Visit: Yes Status: Acute Priority: Medium Code(s): S42.201A - UNSP FRACTURE OF UPPER END OF RIGHT HUMERUS, INIT SNOMED Code(s): 826282814 (3) Right shoulder pain Current Visit: Yes Status: Acute Code(s): M25.511 - PAIN IN RIGHT SHOULDER SNOMED Code(s): 64093564 Plan: The clinical and laboratory findings were discussed with the patient. The case was discussed at length with Dr. Martínez. CT of the right shoulder and arm reveals no fluid collection. We will continue IV antibiotics and conservative treatment at this time. No surgical intervention is planned. Continue antibiotics per infectious disease and continue to follow with internal medicine. Continue gentle range of motion of the shoulder with physical therapy. Elevate right arm. We will continue to follow the patient closely and make further recommendations as needed.
[2021-01-11 09:18] LABS: Basophils # (A) 0.02 X 10*3/uL (0.00-0.10); Basophils % (A) 0.1 %; Eosinophils # (A) 0.04 X 10*3/uL (0.04-0.35); Eosinophils % (A) 0.3 %; HCT 30.4 % (37.2-46.3); HGB 9.9 g/dL (12.0-15.0); Lymphocytes # (A) 1.44 X 10*3/uL (0.90-5.00); Lymphocytes % (A) 10.6 %; MCH 31.8 pg (27.0-32.0); MCHC 32.6 g/dL (32.0-37.0); MCV 97.7 fL (80.0-97.0); Monocytes # (A) 0.87 X 10*3/uL (0.20-1.00); Monocytes % (A) 6.4 %; Neutrophils # (A) 11.14 X 10*3/uL (1.80-7.70); Neutrophils % (A) 81.9 %; Platelet Count 293 X 10*3/uL (140-440); RBC 3.11 X 10*6/uL (4.10-5.20); RDW 14.4 % (11.5-14.5)
--- NOTE | 2021-01-11 09:34 | CT ---
EXAMINATION TYPE: CT shoulder RT wo con DATE OF EXAM: 01/11/2021 COMPARISON: Plain film radiographs dated 01/09/2021 HISTORY: Right shoulder and arm pain, s/p surgery CT DLP: 469.[address] of the right shoulder with reconstruction imaging. TECHNIQUE: Unenhanced CT of the right shoulder was performed with bone and soft tissue window setting s submitted in the axial coronal and sagittal planes. At a separate workstation 3-D TR imaging was o btained. FINDINGS: There has been prior plate fixation with fixation screws. There is resultant streak artifac t limiting evaluation. There is interval callus formation over fracture line continues to be visible. Several adjacent bony fragments persist. Mild angulation at the humeral neck identified. There is no evidence for acute fracture at this time. Moderate AC joint arthropathy. Right lung is clear. Degene rative changes dorsal spine. IMPRESSION: 1. Postoperative changes of the proximal right humerus with persistent angulation at the humeral neck . Callus formation noted over portions of the fracture remain visible. Several adjacent bony fragment s are noted.
[2021-01-11 10:10] LABS: African American GFR (CKD) 127.6 (60.0-200.0); Anion Gap 10.7 mmol/L (4.00-12.00); Calcium 8.3 mg/dL (8.7-10.3); Carbon Dioxide 23.3 mmol/L (21.6-31.8); Magnesium 1.2 mg/dL (1.5-2.4); Non-African American GFR(CKD) 110.1 (60.0-200.0); Potassium 3.8 mmol/L (3.5-5.5)
[2021-01-11] MEDS: MAGNESIUM SULFATE-D5W PMX 1 GM in DEXTROSE/WATER 1 100ML.BAG IVPB SCH ×3 (10:35→13:14)
[2021-01-11] MEDS: KETOROLAC 15 MG/ML 1 ML VIAL IVP SCH ×3 (13:24→23:10)
[2021-01-11] MEDS: MONTELUKAST 10 MG TAB PO SCH (20:54)
[2021-01-11] MEDS: OLANZapine 10 MG TAB PO SCH (20:54)
--- NOTE | 2021-01-11 20:56 | PN ---
PROGRESS NOTE I am covering for Dr. Ogden HISTORY: This 65-year-old woman who was admitted with significant cellulitis of the shoulder and arm area is being closely monitored at this time. CT scan of the shoulder showed postoperative changes and some callus formation also. The cultures are negative so far. No chest pain. No palpitations. No fever. PHYSICAL EXAMINATION: Alert and oriented x3. Pulse 97, blood pressure 100/60, respirations 16, temperature 98.2, pulse ox 94% on room air. HEENT: Conjunctivae normal. NECK: Supple. No JVD. CARDIOVASCULAR: S1 and S2 heard. LUNGS: Breath sounds diminished at the bases. ABDOMEN: Soft, nontender. EXTREMITIES: Exam of the right shoulder significant cellulitis present. NERVOUS SYSTEM: No focal deficits. LABS: WBC 13.6, hemoglobin 9.9, sodium 134, potassium 3.8 and magnesium is 1.2. UA possible UTI. ASSESSMENT: 1. Acute right extensus cellulitis with possible sepsis present on admission. 2. CT scan showing no fluid collection. 3. Possible urinary tract infection present on admission. 4. Increased WBC. 5. Anemia, normocytic. 6. Elevated ESR. 7. Hyponatremia. 8. Hypokalemia. 9. History of recent open reduction and internal fixation of the right proximal humerus fracture status post fall. 10.History of MRSA. 11.History of COPD. 12.Hypertension next history of DJD. 13.History of hysterectomy. 14.Remote history ADD ADHD, history of anxiety, depression. 15.Remote history of nicotine dependence. 16.History of THC medical marijuana. 17.Obesity with body mass index of 62. 18.Hypomagnesemia. RECOMMENDATIONS: Continue current management and symptomatic treatment. Continue with broad-spectrum IV antibiotics. Follow the cultures. DVT prophylaxis. Symptomatic treatment. Repeat labs will be ordered. Closely follow magnesium supplementation, will use magnesium replacement protocol. MMODL / IJN: [id number] /
--- NOTE | 2021-01-12 02:19 | PN ---
PROGRESS NOTE DATE OF SERVICE: 01/11/2021. REASON FOR FOLLOWUP: Right shoulder cellulitis. INTERVAL HISTORY: The patient is afebrile. The patient's pain in the right shoulder has been decreased. The patient denies having any chest pain, shortness of breath or cough. No nausea, vomiting. No abdominal pain or diarrhea. EXAM: Blood pressure 132/84, pulse 80, temperature 98.4, she is 94% on room air. The patient is a middle-aged female lying in bed, in no distress. Respiratory system: Unlabored breathing, clear to auscultation anteriorly. Heart: S1, S2. Regular rate and rhythm. Skin: No rash or any swelling. Swelling or redness of the shoulder is slightly decreased. LABS: Hemoglobin 9.8, white count 13.7, BUN of 12, creatinine 0.84. Blood culture has been negative. CT on the right shoulder did not show any fracture or any abscess. DIAGNOSTIC IMPRESSION AND PLAN: Patient admitted to the hospital with a fall with pain to the right shoulder with recent right humerus fracture repair. Ultrasound mentioned fluid collection, however CT did not show any fluid collection. The patient is currently on cefazolin, to continue in view of multiple antibiotic allergies. Will wait for the culture to finalize. MMODL / IJN: [id number] / SHAAN
[2021-01-12] MEDS: SODIUM CHLORIDE 0.9% 1,000 ML IV SCH (03:58)
[2021-01-12] MEDS: KETOROLAC 15 MG/ML 1 ML VIAL IVP SCH ×3 (05:27→17:40)
[2021-01-12] MEDS: IPRATROPIUM 0.5 MG/2.5 ML NEBU INHALATION SCH ×4 (07:18→21:55)
[2021-01-12] MEDS: FORMOTEROL FUMARATE 20 MCG/2 ML NEBU INHALATION SCH ×2 (07:18→21:55)
[2021-01-12] MEDS: PANTOPRAZOLE 40 MG TABLET PO SCH (08:53)
[2021-01-12] MEDS: hydrOXYzine pamoate 25 MG CAP PO SCH (08:54)
[2021-01-12] MEDS: PREGABALIN 75 MG CAP PO SCH ×2 (08:54→20:24)
[2021-01-12] MEDS: DULoxetine HCL 60 MG CAPSULE.DR PO SCH ×2 (08:54→20:35)
[2021-01-12] MEDS: buPROPion SR 150 MG TABLET.ER PO SCH (08:54)
[2021-01-12] MEDS: BACLOFEN 10 MG TAB PO SCH ×2 (08:54→20:25)
[2021-01-12] MEDS: OXYBUTYNIN 15 MG TAB.ER.24 PO SCH ×2 (08:54→20:24)
[2021-01-12] MEDS: LISINOPRIL-HCTZ 10-12.5 MG 1 EACH TAB PO SCH (08:54)
[2021-01-12] MEDS: NON FORMULARY DRUG (Lisdexamfetamine Dimesylate [Vyvanse] 50 MG Capsule) PO SCH (08:55)
--- NOTE | 2021-01-12 08:56 | P.PN ---
Subjective Progress Note Date: 01/12/21 Principal diagnosis: Right upper extremity cellulitis The patient is a 65-year-old female who was seen in the bedside for follow up evaluation of her right shoulder. She is known to have recently undergone an ORIF of the right shoulder approximately [address] eSkou Martínez for her right proximal humerus fracture. She followed up with him in outpatient setting approximately 2 weeks ago and had been improving without difficulty postoperatively. She sustained a fall at home on 01/08/2021 and presented to [facility]. She was transferred to [facility] for further evaluation. She's been started on antibiotics. She continues to have swelling and pain in her right upper extremity. She is awake, alert, oriented, answers questions appropriately. She does have difficulty using her right upper extremity due to pain. She has no pain with active range of motion of her left upper extremity. She has no other complaints at the bedside. Ultrasound Doppler of the right upper extremity was negative for DVT but there was a question of fluid collection. X-ray imaging of the right shoulder did show a fluid collection. A CT of the shoulder and arm has been ordered and completed this morning. She is eating and voiding without difficulty but does admit she does not have much of an appetite. Patient's past medical history includes COPD, hypertension, and morbid obesity. She has been seen by Dr. Walker and continues on Kefzol at this time. No new complaints today. Her CRP and sed rate are elevated. 01/12/2021: CT of the right shoulder yesterday revealed no fluid collection or acute fracture. We are awaiting blood and urine cultures at this time. She continues on IV Kefzol. This morning, the patient states her arm is feeling bet ter. The swelling in her hand has improved. No new complaints today. Objective - Vital Signs Vital signs: Vital Signs Temp 98.3 F 01/12/21 07:05 Pulse 99 01/12/21 07:05 Resp 16 01/12/21 07:05 BP 133/79 01/12/21 07:05 Pulse Ox 94 L 01/12/21 07:05 Intake & Output 01/11/21 01/12/21 01/12/21 18:59 06:59 18:59 Weight 69 kg Other: # Voids 1 5 - Exam The patient appears in no acute distress. She is alert and oriented 3. Vital signs are stable.Good chest excursion with deep inspiration and expiration. Evidence of a well-healed incision over the right anterior shoulder with no obvious sign of infection. There is improved swelling on the right as compared to the left at the shoulder, through the arm. The hand swelling is completely gone now. Elbow motion is better. Skin is warm to palpation over the right shoulder, humerus, and forearm. Neurovascularly intact right upper extremity. 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 Patient is able to wiggle fingers and make a loose fist of the right hand without significant difficulty. Improving erythema and blanching over the right upper extremity extending to the wrist but does not include the hand. - Labs CBC & Chem 7: 01/11/21 06:13 01/11/21 06:13 Labs: Abnormal Lab Results - Last 24 Hours (Table) 01/11/21 01/11/21 Range/Units 06:13 06:13 WBC 13.60 H (4.50-10.00) X 10*3/uL RBC 3.11 L (4.10-5.20) X 10*6/uL Hgb 9.9 L (12.0-15.0) g/dL Hct 30.4 L (37.2-46.3) % MCV 97.7 H (80.0-97.0) fL Immature Gran # 0.09 H (0.00-0.04) X 10*3/uL Neutrophils # 11.14 H (1.80-7.70) X 10*3/uL Creatinine 0.4 L (0.6-1.5) mg/dL BUN/Creatinine Ratio 30.00 H (12.00-20.00) Ratio Calcium 8.3 L (8.7-10.3) mg/dL Magnesium 1.2 L (1.5-2.4) mg/dL Microbiology - Last 24 Hours (Table) 01/10/21 21:52 Blood Culture - Preliminary Blood No Growth after 24 hours 01/11/21 00:14 Urine Culture - Preliminary Urine,Voided Assessment and Plan (1) Cellulitis of arm, right Current Visit: Yes Status: Acute Code(s): L03.113 - CELLULITIS OF RIGHT UPPER LIMB SNOMED Code(s): 866978078 (2) Fracture of proximal end of right humerus Current Visit: Yes Status: Acute Priority: Medium Code(s): S42.201A - UNSP FRACTURE OF UPPER END OF RIGHT HUMERUS, INIT SNOMED Code(s): 724543827 (3) Right shoulder pain Current Visit: Yes Status: Acute Code(s): M25.511 - PAIN IN RIGHT SHOULDER SNOMED Code(s): 78356168 Plan: The clinical, CT, and laboratory findings were discussed with the patient. The case was discussed at length with Dr. Martínez. CT of the right shoulder and arm reveals no fluid collection. We will continue IV antibiotics and conservative treatment at this time. No surgical intervention is planned. Continue antibiotics per infectious disease and continue to follow with internal medicine. Continue gentle range of motion of the shoulder with physical therapy. Elevate right arm. We anticipate discharge tomorrow pending culture results.
[2021-01-12 09:25] LABS: Basophils # (A) 0.03 X 10*3/uL (0.00-0.10); Basophils % (A) 0.3 %; Eosinophils # (A) 0.06 X 10*3/uL (0.04-0.35); Eosinophils % (A) 0.5 %; HCT 31.6 % (37.2-46.3); HGB 10.3 g/dL (12.0-15.0); Lymphocytes # (A) 2.05 X 10*3/uL (0.90-5.00); Lymphocytes % (A) 18.1 %; MCH 31.9 pg (27.0-32.0); MCHC 32.6 g/dL (32.0-37.0); MCV 97.8 fL (80.0-97.0); Mean Platelet Volume 9.7 fL (9.5-12.2); Monocytes # (A) 0.86 X 10*3/uL (0.20-1.00); Monocytes % (A) 7.6 %; Neutrophils # (A) 8.23 X 10*3/uL (1.80-7.70); Neutrophils % (A) 72.9 %; Platelet Count 321 X 10*3/uL (140-440); RBC 3.23 X 10*6/uL (4.10-5.20); RDW 14.4 % (11.5-14.5)
[2021-01-12 11:42] LABS: African American GFR (CKD) 127.6 (60.0-200.0); BUN/Creat Ratio 17.5 Ratio (12.00-20.00); Calcium 8.2 mg/dL (8.7-10.3); Magnesium 1.3 mg/dL (1.5-2.4); Non-African American GFR(CKD) 110.1 (60.0-200.0); Potassium 3.5 mmol/L (3.5-5.5)
[2021-01-12] MEDS: HYDROmorphone 1 MG/ML 1 ML SYRINGE IVP PRN ×2 (11:58→22:12)
[2021-01-12] MEDS ORDERED: Potassium Replacement Protocol 1 EACH MISC MISCELLANE PRN (15:00)
[2021-01-12] MEDS ORDERED: Magnesium Replacement Protocol 1 EACH MISC MISCELLANE PRN (15:00)
[2021-01-12] MEDS: MAGNESIUM SULFATE-D5W PMX 1 GM in DEXTROSE/WATER 1 100ML.BAG IVPB SCH ×3 (15:19→17:39)
--- NOTE | 2021-01-12 15:53 | PN ---
PROGRESS NOTE DATE OF SERVICE: 01/12/2021. HISTORY: I am covering for Dr. Ogden. This 65-year-old woman was admitted with significant diffuse cellulitis of the right upper arm, also had history of fall, also CT scan did not show any fluid collection. The patient is on broad-spectrum IV antibiotics. Cultures are negative. No chest pain or palpitation. PHYSICAL EXAMINATION: Alert and oriented. Pulse is 109. Blood pressure 121/72, respirations 16, temperature 98.1, pulse ox 98% on room air. HEENT:normal Cardiac examination is normal. respirations at the bases. No rhonchi no crackles. Abdomen: Soft, nontender. Nervous system: Normal. right arm significant cellulitis present. LABS: WBC 11.3, hemoglobin 10.3, magnesium 1.3. UA shows 60 WBC, possibly urinary tract infection and drug screen is positive for opiates and benzodiazepines, cocaine and THC. ASSESSMENT: 1. Acute right extremity cellulitis with possible sepsis present on admission. 2. CT scan showing no fluid collection. 3. Possible urinary tract infection present on admission. 4. Increased WBC. 5. History of fall. 6. Cocaine, THC in the urine. 7. Elevated ESR. 8. Anemia, normocytic. 9. Hyponatremia. 10.Hypokalemia. 11.Hypomagnesemia. 12.History of recent open reduction and internal fixation of the right proximal humerus fracture, status post fall. 13.History of MRSA. 14.COPD. 15.History DJD. 16.History of hysterectomy. 17.Hypertension. 18.History ADHD. 19.History of anxiety, depression. 20.Remote history of nicotine dependence. 21.History of THC and medical marijuana. 22.Obesity with body mass index 62. 23.FULL CODE. RECOMMENDATIONS: to continue current management and continue the antibiotics. Follow the cultures, continue the rest of medications. Supplement magnesium. Prognosis guarded and will follow tomorrow. MMODL / IJN: [id number] / SHAAN
[2021-01-12] MEDS: POTASSIUM CHLORIDE ER 20 MEQ TAB.ER PO SCH ×2 (17:38→19:20)
[2021-01-12] MEDS: OLANZapine 10 MG TAB PO SCH (20:24)
[2021-01-12] MEDS: MONTELUKAST 10 MG TAB PO SCH (20:24)
[2021-01-12] MEDS: HYDROcodone/APAP 5-325MG 1 EACH TAB PO PRN (20:25)
--- NOTE | 2021-01-13 00:25 | PN ---
PROGRESS NOTE DATE OF SERVICE: 01/12/2021 REASON FOR FOLLOWUP: Right shoulder cellulitis. INTERVAL HISTORY: The patient is afebrile. Overall pain and discomfort to the right shoulder slightly decreased. The patient denies having any chest pain or shortness of breath or cough. No abdominal pain. No diarrhea. PHYSICAL EXAMINATION: Blood pressure 102/63, pulse of 97, temperature 97.5. She is 93% on room air. General description is a middle-aged female lying in bed in no distress. Respiratory system: Unlabored breathing, clear to auscultation anteriorly. HEART: S1, S2. Regular rate and rhythm. Abdomen soft, no tenderness. Right shoulder swelling and redness has slightly decreased. LABS: Hemoglobin is 10.8, white count 11.30, BUN of 7, creatinine 0.4. Blood cultures have been negative so far. DIAGNOSTIC IMPRESSION AND PLAN: Patient with right shoulder cellulitis in this patient with recent right humeral fracture repair. Ultrasound was suggestive of a fluid collection. However, CT did not show. Ortho recommending nonsurgical course. The patient does have MULTIPLE ANTIBIOTIC ALLERGIES. Currently, seemed to be clinically responding to cefazolin to continue. She will get a midline and at least 2-4 weeks of antibiotic on the basis of clinical response. Continue supportive care. MMODL / IJN: [id number] /
[2021-01-13] MEDS: KETOROLAC 15 MG/ML 1 ML VIAL IVP SCH ×4 (00:26→17:59)
[2021-01-13] MEDS: HYDROcodone/APAP 7.5-325MG 1 EACH TAB PO PRN ×2 (06:15→13:54)
[2021-01-13] MEDS: FORMOTEROL FUMARATE 20 MCG/2 ML NEBU INHALATION SCH ×2 (08:14→20:53)
[2021-01-13] MEDS: IPRATROPIUM 0.5 MG/2.5 ML NEBU INHALATION SCH ×4 (08:14→20:53)
[2021-01-13] MEDS: BACLOFEN 10 MG TAB PO SCH ×2 (08:35→20:24)
[2021-01-13] MEDS: PANTOPRAZOLE 40 MG TABLET PO SCH (08:35)
[2021-01-13] MEDS: buPROPion SR 150 MG TABLET.ER PO SCH (08:35)
[2021-01-13] MEDS: hydrOXYzine pamoate 25 MG CAP PO SCH (08:36)
[2021-01-13] MEDS: DULoxetine HCL 60 MG CAPSULE.DR PO SCH ×2 (08:36→20:24)
[2021-01-13] MEDS: OXYBUTYNIN 15 MG TAB.ER.24 PO SCH ×2 (08:37→20:23)
[2021-01-13] MEDS: LISINOPRIL-HCTZ 10-12.5 MG 1 EACH TAB PO SCH (08:37)
[2021-01-13] MEDS: NON FORMULARY DRUG (Lisdexamfetamine Dimesylate [Vyvanse] 50 MG Capsule) PO SCH (08:38)
[2021-01-13] MEDS: PREGABALIN 75 MG CAP PO SCH ×2 (08:38→20:23)
[2021-01-13 08:45] LABS: Basophils # (A) 0.03 X 10*3/uL (0.00-0.10); Basophils % (A) 0.3 %; Eosinophils # (A) 0.17 X 10*3/uL (0.04-0.35); Eosinophils % (A) 1.7 %; HCT 31.2 % (37.2-46.3); Lymphocytes % (A) 25.2 %; MCH 31.9 pg (27.0-32.0); MCHC 32.1 g/dL (32.0-37.0); MCV 99.7 fL (80.0-97.0); Mean Platelet Volume 9.3 fL (9.5-12.2); Monocytes # (A) 0.84 X 10*3/uL (0.20-1.00); Monocytes % (A) 8.5 %; Neutrophils # (A) 6.29 X 10*3/uL (1.80-7.70); Neutrophils % (A) 63.3 %; Platelet Count 355 X 10*3/uL (140-440); RBC 3.13 X 10*6/uL (4.10-5.20); RDW 14.9 % (11.5-14.5); WBC 9.93 X 10*3/uL (4.50-10.00)
[2021-01-13 13:48] LABS: African American GFR (CKD) 140.2 (60.0-200.0); Anion Gap 9.7 mmol/L (4.00-12.00); BUN/Creat Ratio 26.67 Ratio (12.00-20.00); C Reactive Protein 11.3 mg/dL (0.0-0.8); Calcium 8.6 mg/dL (8.7-10.3); Carbon Dioxide 26.3 mmol/L (21.6-31.8); Magnesium 1.4 mg/dL (1.5-2.4); Potassium 4.2 mmol/L (3.5-5.5)
--- NOTE | 2021-01-13 14:49 | P.PN ---
Subjective Progress Note Date: 01/13/21 This is a 65-year-old female with recent right humeral fracture repair, status post fall, admitted with right upper extremity cellulitis. Ultrasound of right upper extremity reported possible hematoma or abscess seroma at the right shoulder,CT did not report fluid collection. Maintained on IV antibiotics of Kefzol as per infectious disease. Afebrile, normal WBC, hemoglobin 10, platelets 355. Renal function stable. Reports positive pain, positive edema. Denies chest pain, palpitations or shortness of breath. Magnesium 1.4. Objective - Vital Signs Vital signs: Vital Signs Temp 98.1 F 01/13/21 07:40 Pulse 90 01/13/21 07:40 Resp 18 01/13/21 07:40 BP 116/67 01/13/21 07:40 Pulse Ox 93 L 01/13/21 07:40 Intake & Output 01/12/21 01/13/21 01/13/21 18:59 06:59 18:59 Other: Voiding Method Toilet Toilet Diaper Diaper # Voids 3 3 # Bowel Movements 0 - Exam PHYSICAL EXAM: VITAL SIGNS: As above GENERAL: Sitting up at bedside, no acute distress HEENT: Conjunctivae normal. eyes normal. NECK: No JVD. No thyroid enlargement. No LNs CARDIOVASCULAR: S1, S2 regular. No murmur. RESPIRATION: Breath sounds diminished in the bases. No rhonchi or crackles. ABDOMEN: Soft, nontender . No guarding. no masses palpable.Bowel sounds heard. Extremtities: Right arm swollen, hand and digits flexible, positive radial pulse. PSYCHIATRY: Alert and oriented X3, mood and affect normal. NERVOUS SYSTEM: Cranial N 2-12 grossly normal. Moves all 4 limbs. No focal deficits. Strength and sensation grossly intact.. Skin: Warm and dry, no rash - Labs CBC & Chem 7: 01/13/21 05:45 01/13/21 05:45 Labs: Abnormal Lab Results - Last 24 Hours (Table) 01/13/21 01/13/21 Range/Units 05:45 05:45 RBC 3.13 L (4.10-5.20) X 10*6/uL Hgb 10.0 L (12.0-15.0) g/dL Hct 31.2 L (37.2-46.3) % MCV 99.7 H (80.0-97.0) fL RDW 14.9 H (11.5-14.5) % MPV 9.3 L (9.5-12.2) fL Immature Gran # 0.10 H (0.00-0.04) X 10*3/uL BUN 8.0 L (9.0-27.0) mg/dL Creatinine 0.3 L (0.6-1.5) mg/dL BUN/Creatinine Ratio 26.67 H (12.00-20.00) Ratio Glucose 129 H (70-110) mg/dL Calcium 8.6 L (8.7-10.3) mg/dL Magnesium 1.4 L (1.5-2.4) mg/dL C-Reactive Protein 11.3 H (0.0-0.8) mg/dL Microbiology - Last 24 Hours (Table) 01/10/21 21:52 Blood Culture - Preliminary Blood No Growth after 48 hours Assessment and Plan Assessment: recent right humeral fracture repair, status post fall admitted with right upper extremity cellulitis. UTI ruled out, culture reporting no growth Hypomagnesemia Cocaine, THC in the urine Anemia, appears to be at baseline, possibly chronic History of nicotine dependence Name: Continue on current medication regime ,monitoring and symptomatic treatment. Magnesium replacement as per previously ordered replacement protocol. Maintain IV antibiotics as per ID. Conservative treatment as per orthopedic surgery. Recommending elevating affected extremity at or above heart level. Discharge planning in progress as per orthopedic surgery tomorrow. Follow-up with PCP in 1 week. The impression and plan of care has been dictated as directed. : I performed a history and examination of this patient, discussed the same with the dictator. I agree with the dictator's note ,documented as a scribe. Any additional findings or plans will be noted.
[2021-01-13] MEDS: MAGNESIUM SULFATE-D5W PMX 1 GM in DEXTROSE/WATER 1 100ML.BAG IVPB SCH ×3 (15:27→18:07)
--- NOTE | 2021-01-13 19:21 | PN ---
PROGRESS NOTE DATE OF SERVICE: 01/13/2021 REASON FOR FOLLOWUP: Right shoulder cellulitis. INTERVAL HISTORY: The patient is afebrile. Still complaining of pain and swelling to the right shoulder area though it has slightly decreased. Denies any chest pain, shortness of breath. No abdominal, pain no diarrhea. PHYSICAL EXAMINATION: Blood pressure 114/75, pulse of 90, temperature 98.4. She is 97% on room air. General description is a middle-aged female lying in bed in no distress. Examination of the right shoulder area, swelling persists, slightly decreased. Minimal redness. Warm to touch. No drainage. Lungs: Unlabored breathing, clear to auscultation. Heart: S1, S2. Regular rate and rhythm. Abdomen soft, no tenderness. LABS: Hemoglobin is 10.3, white count 9.93, BUN of 8, creatinine 0.3. CRP 11.3. DIAGNOSTIC IMPRESSION AND PLAN: Patient with right shoulder pain and swelling after apparently the patient did have a fall. The ultrasound suggested an abscess, however, CT came back negative. Patient seemed to have clinically responded to the cefazolin with multiple antibiotic allergies. She will continue with cefazolin for at least 2-3 weeks. Monitor clinical response and close outpatient followup. Midline has been ordered. Once antibiotic arranged, she can go home from ID standpoint. MMODL / IJN: [id number] /
[2021-01-13] MEDS: OLANZapine 10 MG TAB PO SCH (20:23)
[2021-01-13] MEDS: MONTELUKAST 10 MG TAB PO SCH (20:23)
[2021-01-13] MEDS: HYDROmorphone 1 MG/ML 1 ML SYRINGE IVP PRN (20:28)
[2021-01-14] MEDS: KETOROLAC 15 MG/ML 1 ML VIAL IVP SCH ×3 (06:15→13:15)
[2021-01-14] MEDS: IPRATROPIUM 0.5 MG/2.5 ML NEBU INHALATION SCH ×4 (08:12→19:10)
[2021-01-14] MEDS: FORMOTEROL FUMARATE 20 MCG/2 ML NEBU INHALATION SCH ×2 (08:12→19:10)
[2021-01-14] MEDS: DULoxetine HCL 60 MG CAPSULE.DR PO SCH ×2 (08:24→21:02)
[2021-01-14] MEDS: PREGABALIN 75 MG CAP PO SCH ×2 (08:24→21:01)
[2021-01-14] MEDS: HYDROcodone/APAP 7.5-325MG 1 EACH TAB PO PRN (08:25)
[2021-01-14] MEDS: PANTOPRAZOLE 40 MG TABLET PO SCH (08:25)
[2021-01-14] MEDS: BACLOFEN 10 MG TAB PO SCH ×2 (08:25→21:02)
[2021-01-14] MEDS: buPROPion SR 150 MG TABLET.ER PO SCH (08:26)
[2021-01-14] MEDS: LISINOPRIL-HCTZ 10-12.5 MG 1 EACH TAB PO SCH (08:27)
[2021-01-14] MEDS: hydrOXYzine pamoate 25 MG CAP PO SCH (08:27)
[2021-01-14] MEDS: NON FORMULARY DRUG (Lisdexamfetamine Dimesylate [Vyvanse] 50 MG Capsule) PO SCH (08:27)
[2021-01-14] MEDS: OXYBUTYNIN 15 MG TAB.ER.24 PO SCH ×2 (08:27→21:02)
--- NOTE | 2021-01-14 10:39 | CDI ---
Documentation Clarification Form Date: 01/14/2021 10:27:41 AM From: Tiffanie OrdonezMarionSAMEER flores, CCDS Admit Date: 01/10/2021 04:16:00 PM Patient Name: Aline Bolaños Visit Number: [id number] Discharge Date: ATTENTION: The Clinical Documentation Specialists (CDI) and [facility] Coding Staff appreciate your assistance in clarifying documentation. Please respond to the clarification below the line at the bottom and electronically sign. The CDI & [facility] Coding staff will review the response and follow-up if needed. Please note: Queries are made part of the Legal Health Record. If you have any questions, please contact the author of this message via ITS. Dr. Juan Pablo Ogden: Sepsis is documented in the Medical Management Progress Notes on 01/10, 01/11 & 01/12. Sepsis is not documented in the 01/13 Medical Management Progress Note. Additional clarification regarding Sepsis is requested. History/Risk Factors per the 01/09 Orthopedic H/P: Recurrent UTIs, Recent right humerus fracture status post ORIF 11/07/2020. COPD, Hypertension, Osteoarthritis, MRSA right thumb infection 2019. Clinical Indicators: Presented to the ED on 01/09 with Right shoulder pain and recent fracture. 01/09 VS: T 99.8, P 114, R 22, BP 97/58, PO 98 - 94 RA, BMI: 26.1 01/09 LAB: WBC 13.9, Hgb 11.2, Neutrophil 12.1, Lymphocytes 0.9, ESR 104 Lactic Acid not done. 01/09 UA: Clear, Trace Protein, Trace Blood, Large Esterase, WBC 60 01/10 Blood Culture (Preliminary): neg at 72 hours 01/11 Urine Culture (Final): negative Treatment 01/09: IV Dilaudid 1 mg x1, IV Dilaudid 1 mg q4H, IV Ativan 1 mg q4H, IV Zofran 4 mg x1, IV Zofran 4 mg q6H, IV Na Cl 1,000 mls @ 130 mls/hr q7H, IV Cefazolin. 01/10 Infectious Disease Consult Impression: Right shoulder pain & swelling after a fall, recent right humerus fracture and repair, concern for possible hematoma, abscess not excluded. In your professional opinion, please clarify if these findings signify one of the following conditions: [ ] Sepsis POA [ ] Sepsis, Not POA [ ] Sepsis ruled out [ ] Other, please specify [ ] Unable to determine (Template Last Reviewed: August 2020) Sepsis ruled out MTDD
--- NOTE | 2021-01-14 10:58 | P.PN ---
Subjective Progress Note Date: 01/13/21 Principal diagnosis: Cellulitis RUE Patient is a pleasant 65-year-old female seen at bedside this afternoon. We are following her for her right upper extremity cellulitis where she is status post ORIF of right proximal humerus fracture performed by Dr. Martínez 2 months ago. She has been on IV antibiotics where the erythema hasn't been improving some. She had a CT of the right upper arm which is negative for fluid collection or abscess. Was also negative for acute fracture. Blood and urine cultures are pending. She has no new complaints today. She denies fever or chills. She continues to have pain at the right upper extremity as expected. She denies new numbness or tingling. Objective - Vital Signs Vital signs: Vital Signs Temp 98.4 F 01/13/21 14:00 Pulse 93 01/13/21 14:00 Resp 15 01/13/21 14:00 BP 114/75 01/13/21 14:00 Pulse Ox 97 01/13/21 14:00 Intake & Output 01/12/21 01/13/21 01/13/21 18:59 06:59 18:59 Other: Voiding Method Toilet Toilet Diaper Diaper # Voids 3 3 # Bowel Movements 0 - Exam Inspection of the right shoulder and upper extremity shows well-healed surgical wound. There is no evidence of wound breakdown or dehiscence. There is improved erythema throughout the right upper extremity as well as improved swelling. Skin is warm to touch but not overly hot. There is tenderness about the right shoulder which is not new. Motor and sensation is grossly intact throughout the right upper extremity. 2+ radial pulses present. Less than 2 second capillary refill is present. - Constitutional General appearance: Present: no acute distress - Labs CBC & Chem 7: 01/13/21 05:45 01/13/21 05:45 Labs: Abnormal Lab Results - Last 24 Hours (Table) 01/13/21 01/13/21 Range/Units 05:45 05:45 RBC 3.13 L (4.10-5.20) X 10*6/uL Hgb 10.0 L (12.0-15.0) g/dL Hct 31.2 L (37.2-46.3) % MCV 99.7 H (80.0-97.0) fL RDW 14.9 H (11.5-14.5) % MPV 9.3 L (9.5-12.2) fL Immature Gran # 0.10 H (0.00-0.04) X 10*3/uL BUN 8.0 L (9.0-27.0) mg/dL Creatinine 0.3 L (0.6-1.5) mg/dL BUN/Creatinine Ratio 26.67 H (12.00-20.00) Ratio Glucose 129 H (70-110) mg/dL Calcium 8.6 L (8.7-10.3) mg/dL Magnesium 1.4 L (1.5-2.4) mg/dL C-Reactive Protein 11.3 H (0.0-0.8) mg/dL Microbiology - Last 24 Hours (Table) 01/10/21 21:52 Blood Culture - Preliminary Blood No Growth after 48 hours Assessment and Plan (1) Cellulitis of arm, right Narrative/Plan: She will continue with IV antibiotics per infectious disease. She's had a midl ine placed with plans for home IV antibiotic therapy. She'll continue with pain management and medical management as well as DVT prophylaxis. Expect that she will transfer to home the next 1-2 days with home health and follow-up in 1 week as an outpatient. Current Visit: Yes Status: Acute Code(s): L03.113 - CELLULITIS OF RIGHT UPPER LIMB SNOMED Code(s): 097325887 Time with Patient: Less than 30
--- NOTE | 2021-01-14 14:41 | P.PN ---
Subjective Progress Note Date: 01/14/21 Principal diagnosis: Cellulitis MAGGI Patient is a pleasant 65-year-old female seen at bedside this morning. We have been following her for her right upper extremity cellulitis where she is status post ORIF of right proximal humerus fracture performed by Dr. Martínez 2 months ago. She has been on IV antibiotics where the erythema had been improving some however worsened over he past day or so. She had a CT of the right upper arm which was negative for deep fluid collection or abscess. Was also negative for acute fracture. Blood and urine cultures are pending. She has no new complaints today. She denies fever or chills. She continues to have pain at the right upper extremity as expected. She denies new numbness or tingling. Objective - Vital Signs Vital signs: Vital Signs Temp 97.9 F 01/14/21 13:57 Pulse 88 01/14/21 13:57 Resp 14 01/14/21 13:57 BP 100/65 01/14/21 13:57 Pulse Ox 93 L 01/14/21 13:57 Intake & Output 01/13/21 01/14/21 01/14/21 18:59 06:59 18:59 Other: Voiding Method Toilet Toilet Diaper Diaper # Voids 1 3 - Exam Inspection of the right shoulder and upper extremity shows well-healed surgical wound with an opening that was expressed by Dr. Walker at the bottom of the scar . There appears to be some superficial fluid collection. There is some diffuse erythema throughout the upper arm. Skin is warm to touch but not overly hot. There is tenderness about the right shoulder which is not new. Motor and sensation is grossly intact throughout the right upper extremity. 2+ radial pulses present. Less than 2 second capillary refill is present. - Constitutional General appearance: Present: no acute distress - Labs CBC & Chem 7: 01/13/21 05:45 01/13/21 05:45 Labs: Microbiology - Last 24 Hours (Table) 01/10/21 21:52 Blood Culture - Preliminary Blood No Growth after 72 hours Assessment and Plan (1) Cellulitis of arm, right Narrative/Plan: Patient has been discussed with Dr. Martínez. Plan will be to take her to the OR today for I and D with plate removal. She is to be NPO. Procedure and consent has been ordered. Continue pain management, medical management and IV antibiotics. Current Visit: Yes Status: Acute Code(s): L03.113 - CELLULITIS OF RIGHT UPPER LIMB SNOMED Code(s): 020844951 Time with Patient: Less than 30
[2021-01-14] MEDS ORDERED: LACTATED RINGERS 1,000 ML IV ONE (15:39)
[2021-01-14] MEDS ORDERED: DEXAMETHASONE SOD PHOSPHATE 4 MG/ML 1 ML VIAL IVP ONE (15:43)
[2021-01-14] MEDS ORDERED: ONDANSETRON 4 MG/2 ML VIAL IVP ONE (15:43)
[2021-01-14] MEDS ORDERED: fentaNYL (PF) 50 MCG/ML 2 ML AMP IVP ONE (16:01)
[2021-01-14] MEDS ORDERED: PROCHLORPERAZINE SUPPOSITORY 25 MG SUPP RECTAL PRN (16:30)
[2021-01-14] MEDS ORDERED: HYDROmorphone 0.5 MG/0.5 ML SYRINGE IVP PRN ×2 (16:30)
[2021-01-14] MEDS ORDERED: diphenhydrAMINE 25 MG CAP PO PRN (16:30)
[2021-01-14] MEDS ORDERED: SENNOSIDES-DOCUSATE SODIUM 1 EACH TAB PO PRN (16:30)
[2021-01-14] MEDS ORDERED: PHENYLEPHRINE-0.9% NACL SYG 1,000 MCG/10 ML SYRINGE ONE (16:35)
[2021-01-14] MEDS ORDERED: SUCCINYLCHOLINE CHLORIDE 100 MG/5 ML SYR IV ONE (16:35)
[2021-01-14] MEDS ORDERED: PROPOFOL 10 MG/ML 20 ML VIAL IV ONE (16:35)
[2021-01-14] MEDS ORDERED: ROCURONIUM 10 MG/ML (5 ML VIAL) IV ONE (16:35)
[2021-01-14] MEDS ORDERED: fentaNYL (PF) 50 MCG/ML 2 ML AMP ONE (16:35)
[2021-01-14] MEDS ORDERED: GLYCOPYRROLATE 0.2 MG/ML 2 ML VIAL ONE (16:35)
[2021-01-14] MEDS ORDERED: LIDOCAINE 1% INJ 10MG/ML (20 ML MDV) ONE (16:35)
[2021-01-14] MEDS ORDERED: NEOSTIGMINE 1 MG/ML 10 ML VIAL ONE (16:35)
--- NOTE | 2021-01-14 16:52 | P.PN ---
Subjective Progress Note Date: 01/14/21 This is a 65-year-old female with recent right humeral fracture repair, status post fall, admitted with right upper extremity cellulitis. Ultrasound of right upper extremity reported possible hematoma or abscess seroma at the right shoulder,CT did not report fluid collection. Maintained on IV antibiotics of Kefzol as per infectious disease. Afebrile, normal WBC, hemoglobin 10, platelets 355. Renal function stable. Reports positive pain, positive edema. Denies chest pain, palpitations or shortness of breath. Magnesium 1.4. 01/14/2021 pain significantly improved, recently medicated with [place]. Mid- line placed for IV antibiotics at discharge. Afebrile, normal WBC. Magnesium 1.4. Denies chest pain, palpitations or shortness of breath. Objective - Vital Signs Vital signs: Vital Signs Temp 98.2 F 01/14/21 08:00 Pulse 91 01/14/21 08:00 Resp 18 01/14/21 08:00 BP 136/73 01/14/21 08:00 Pulse Ox 99 01/14/21 08:00 Intake & Output 01/13/21 01/14/21 01/14/21 18:59 06:59 18:59 Other: Voiding Method Toilet Toilet Diaper Diaper # Voids 1 3 - Exam PHYSICAL EXAM: VITAL SIGNS: As above GENERAL: Lying flat in bed, no acute distress HEENT: Conjunctivae normal. eyes normal. NECK: No JVD. No thyroid enlargement. No LNs CARDIOVASCULAR: S1, S2 regular. No murmur. RESPIRATION: Breath sounds diminished in the bases. No rhonchi or crackles. ABDOMEN: Soft, nontender . No guarding. no masses palpable.Bowel sounds heard. Extremtities: Right arm tenderness with erythema, hand and digits flexible, positive radial pulse. PSYCHIATRY: Alert and oriented X3, mood and affect normal. NERVOUS SYSTEM: Cranial N 2-12 grossly normal. Moves all 4 limbs. No focal deficits. Strength and sensation grossly intact. Skin: Warm and dry, no rash - Labs CBC & Chem 7: 01/13/21 05:45 01/13/21 05:45 Labs: Abnormal Lab Results - Last 24 Hours (Table) 01/13/21 Range/Units 05:45 BUN 8.0 L (9.0-27.0) mg/dL Creatinine 0.3 L (0.6-1.5) mg/dL BUN/Creatinine Ratio 26.67 H (12.00-20.00) Ratio Glucose 129 H (70-110) mg/dL Calcium 8.6 L (8.7-10.3) mg/dL Magnesium 1.4 L (1.5-2.4) mg/dL C-Reactive Protein 11.3 H (0.0-0.8) mg/dL Microbiology - Last 24 Hours (Table) 01/10/21 21:52 Blood Culture - Preliminary Blood No Growth after 72 hours Assessment and Plan Assessment: recent right humeral fracture repair, status post fall admitted with right upper extremity cellulitis. UTI ruled out, culture reporting no growth Hypomagnesemia Cocaine, THC in the urine Anemia, appears to be at baseline, possibly chronic History of nicotine dependence Name: Continue on current medication regime ,monitoring and symptomatic treatment. Patient is scheduled for I&D and plate removal today with orthopedics. Midline placed for DC IV antibiotics. Magnesium replacement as per previously ordered replacement protocol. Follow-up with PCP in 1 week. The impression and plan of care has been dictated as directed. : I performed a history and examination of this patient, discussed the same with the dictator. I agree with the dictator's note ,documented as a scribe. Any additional findings or plans will be noted.
[2021-01-14] MEDS ORDERED: ceFAZolin 3,000 MG in SODIUM CHLORIDE 0.9% IRRIGATIO 3,000 ML IRRIGATION ONE (17:05)
--- NOTE | 2021-01-14 17:06 | PN ---
PROGRESS NOTE DATE OF SERVICE: 01/14/2021 REASON FOR FOLLOWUP: Right shoulder abscess and cellulitis. INTERVAL HISTORY: Patient was seen on rounds this morning. The patient started having drainage from the incision on the right shoulder area after area was probed for culture, She did have significant amount of purulent drainage. This information was shared with Ortho. She has been complaining of pain. No worsening though. No chest pain, shortness of breath, cough, abdominal pain or diarrhea. PHYSICAL EXAMINATION: Blood pressure 129/59, pulse of 90, temperature 98.4. She is 95% on room air. General description is a middle aged female lying in bed in no distress. Respiratory system: Unlabored breathing. Clear to auscultation anteriorly. Heart S1, S2. Regular rate and rhythm. Abdomen soft, no tenderness. Right shoulder significant swelling though slightly decreased after drainage of this abscess. LABS: No new labs been obtained today. DIAGNOSTIC IMPRESSION AND PLAN: Patient with right shoulder infected hematoma and abscess with spontaneous drainage. We will continue with cefazolin in view of her MULTIPLE ANTIBIOTIC ALLERGIES. Local culture has been obtained. The patient will benefit from shoulder washout. This was discussed with orthopedics and deep cultures. Continue supportive care. MMODL / IJN: [id number] / SHAAN
[2021-01-14] MEDS: HYDROmorphone 0.5 MG/0.5 ML SYRINGE IVP PRN ×2 (18:04→18:21)
[2021-01-14] MEDS: LACTATED RINGERS 1,000 ML IV SCH (18:38)
--- NOTE | 2021-01-14 20:05 | OP ---
OPERATIVE REPORT DATE OF SERVICE: 01/14/2021. PREOPERATIVE DIAGNOSES: 1. Right shoulder subcutaneous infection. 2. Right shoulder status post open reduction internal fixation right proximal humerus fracture. POSTOPERATIVE DIAGNOSIS: Right shoulder deep infection. PROCEDURE: 1. Removal plate and screws, right proximal humerus. 2. Right shoulder irrigation and debridement deep infection. SURGEON: Sekou Martínez MD. CLASSIFICATION CLERK: RITA Duran ANESTHESIA: General endotracheal. ESTIMATED BLOOD LOSS: 50 mL. TOURNIQUET: None. DRAINS: One deep drain. COMPLICATIONS: None apparent. DISPOSITION: Postanesthesia Care Unit. INDICATIONS: Aline is a very pleasant 65-year-old female who underwent an open reduction, internal fixation of a displaced proximal humerus fracture approximately a little over 8 weeks ago. She presented to the hospital here on January 09 with fairly significant cellulitis in the right upper extremity. Workup including x-rays and CT scan revealed no subcutaneous fluid collection. She was treated with antibiotics for the presumed cellulitis. Earlier today, she did develop some drainage from the inferior aspect of the incision. We made a decision at that point to proceed with incision and drainage with possible removal of the hardware for the right shoulder infection. CONSENT: The risks of procedure were discussed with Aline in detail. These risks include, but are not limited to risk of infection, nerve damage, bleeding, pain, and a small risk of deep vein thrombosis which could lead to fatal pulmonary embolism. Further risks include failure to eradicate the infection. Of note, she did have a preoperative CT scan which did show healing of the proximal humerus fracture. I did talk to her about the probability of removing the plate and screws at the time of the procedure as well. All of her questions with regard to the procedure were answered to her satisfaction. Appropriate informed consent was obtained. DESCRIPTION OF THE PROCEDURE: The patient identified in preoperative holding area. Surgical site was marked by both the patient and myself. She was then transferred to the operative suite. She was placed supine on the operative table. Antibiotics were withheld until after the cultures were taken. General anesthetic was then administered and dosed per the anesthesia without apparent complication. She was then placed into the beach chair position well-padded in preparation for surgery. Great care was taken to ensure the cervical spine was in neutral alignment well-padded and maintained that way throughout the operative procedure. Great care was also taken to ensure that her legs were appropriately padded as well. The patient's right upper extremity was then prepped and draped in usual sterile fashion. Standard surgical pause undertaken to ensure that we were operating on the correct site. As noted, all the antibiotics have been held. All staff in room in agreement, we proceeded. The previous incision was then opened with a 10 blade scalpel. Copious amount of purulent material was expressed as soon as I got through the subcutaneous, through the skin into the subcutaneous area. This was an obvious deep infection which tracked down to the plate of the proximal humerus. Dissection was carried out bluntly with my finger. I did take deep cultures which were sent for analysis. At this point, made the decision to remove the plate. Again, it was noted on a preoperative CT scan that the fracture had a good amount healing on it. The plate was then removed utilizing the appropriate screwdrivers. This was done without any incident. I then proceeded to debride any of the any deep necrotic tissue. This was done sharply with a 15 blade scalpel. I then debrided the previous area of the plate with a curette. I then proceeded with irrigation. Next, 3 L of sterile saline with antibiotic added were then utilized to irrigate the wound. This was done via pulse lavage. At this point, we proceeded with closure. A deep drain was then placed. This was placed just deep to the deltoid. Was brought out superiorly away from the incision. The skin and subcutaneous tissue was then closed with 2-0 nylon vertical mattress sutures. Sterile compressive dressing was then applied. The patient's right upper extremity was placed into a standard sling. All sponge and needle counts were deemed correct prior to closure. The patient tolerated the procedure without apparent complication. She was transferred recovery room in stable condition. POSTOPERATIVE PLAN: She will be readmitted to the floor. The cultures will be analyzed. Infectious Disease Services has already seen Aline. We will continue to monitor her an infection postoperatively. MMODL / IJN: [id number] /
[2021-01-14] MEDS ORDERED: ERGOCALCIFEROL 1,250 MCG (50,000 IU) CAPSULE PO SCH (20:29)
[2021-01-14] MEDS: MONTELUKAST 10 MG TAB PO SCH (21:01)
[2021-01-14] MEDS: HYDROcodone/APAP 10-325MG 1 EACH TAB PO PRN (21:01)
[2021-01-14] MEDS: OLANZapine 10 MG TAB PO SCH (21:02)
[2021-01-14] MEDS: HYDROmorphone 1 MG/ML 1 ML SYRINGE IVP PRN (23:26)
[2021-01-15] MEDS: LORazepam 2 MG/ML INJ IV PRN (01:34)
[2021-01-15] MEDS: LACTATED RINGERS 1,000 ML IV SCH ×2 (02:36→12:31)
[2021-01-15] MEDS: FORMOTEROL FUMARATE 20 MCG/2 ML NEBU INHALATION SCH ×2 (07:26→20:17)
[2021-01-15] MEDS: IPRATROPIUM 0.5 MG/2.5 ML NEBU INHALATION SCH ×4 (07:26→20:19)
[2021-01-15] MEDS: DULoxetine HCL 60 MG CAPSULE.DR PO SCH ×2 (09:08→20:43)
[2021-01-15] MEDS: HYDROcodone/APAP 10-325MG 1 EACH TAB PO PRN ×2 (09:09→16:12)
[2021-01-15] MEDS: PANTOPRAZOLE 40 MG TABLET PO SCH (09:09)
[2021-01-15] MEDS: BACLOFEN 10 MG TAB PO SCH ×2 (09:09→20:43)
[2021-01-15] MEDS: PREGABALIN 75 MG CAP PO SCH ×2 (09:09→20:43)
[2021-01-15] MEDS: buPROPion SR 150 MG TABLET.ER PO SCH (09:11)
[2021-01-15] MEDS: hydrOXYzine pamoate 25 MG CAP PO SCH (09:11)
[2021-01-15] MEDS: LISINOPRIL-HCTZ 10-12.5 MG 1 EACH TAB PO SCH (09:12)
[2021-01-15] MEDS: OXYBUTYNIN 15 MG TAB.ER.24 PO SCH ×2 (09:13→20:43)
[2021-01-15] MEDS: NON FORMULARY DRUG (Lisdexamfetamine Dimesylate [Vyvanse] 50 MG Capsule) PO SCH (09:14)
[2021-01-15 10:21] LABS: Basophils # (A) 0.03 X 10*3/uL (0.00-0.10); Basophils % (A) 0.3 %; Eosinophils # (A) 0.01 X 10*3/uL (0.04-0.35); Eosinophils % (A) 0.1 %; HCT 30.7 % (37.2-46.3); HGB 9.5 g/dL (12.0-15.0); Lymphocytes # (A) 2.09 X 10*3/uL (0.90-5.00); Lymphocytes % (A) 23.7 %; MCH 31.3 pg (27.0-32.0); MCHC 30.9 g/dL (32.0-37.0); Mean Platelet Volume 9.2 fL (9.5-12.2); Monocytes # (A) 0.54 X 10*3/uL (0.20-1.00); Monocytes % (A) 6.1 %; Neutrophils # (A) 6.04 X 10*3/uL (1.80-7.70); Neutrophils % (A) 68.7 %; Platelet Count 453 X 10*3/uL (140-440); RBC 3.04 X 10*6/uL (4.10-5.20); RDW 14.9 % (11.5-14.5); WBC 8.81 X 10*3/uL (4.50-10.00)
[2021-01-15] MEDS: HYDROmorphone 1 MG/ML 1 ML SYRINGE IVP PRN ×2 (13:08→19:30)
--- NOTE | 2021-01-15 14:35 | P.PN ---
Subjective Progress Note Date: 01/15/21 Principal diagnosis: Cellulitis RUE Patient is a pleasant 65-year-old female seen at bedside this morning. She is POD # 1 from I and D with hardware removal right shoulder. She feels the pain is improved some. She is denying numbness, tingling, fever, chills or other. PHX: We have been following her for her right upper extremity cellulitis where she is status post ORIF of right proximal humerus fracture performed by Dr. Martínez 2 months ago. She has been on IV antibiotics where the erythema had been improving some however worsened over the past day or so. She had a CT of the right upper arm which was negative for deep fluid collection or abscess. Was also negative for acute fracture. Blood and urine cultures are pending. She has no new complaints today. She denies fever or chills. She continues to have pain at the right upper extremity as expected. She denies new numbness or tingling. Objective - Vital Signs Vital signs: Vital Signs Temp 97.7 F 01/15/21 07:20 Pulse 91 01/15/21 07:20 Resp 18 01/15/21 07:20 BP 106/65 01/15/21 07:20 Pulse Ox 93 L 01/15/21 07:20 Intake & Output 01/14/21 01/15/21 01/15/21 18:59 06:59 18:59 Intake Total 1051 240 Output Total 20 1 Balance 1031 239 Intake: IV 1051 Oral 240 Output: Urine 1 Estimated Blood Loss 20 Other: Voiding Method Toilet Toilet Diaper Diaper # Voids 1 2 - Exam Inspection of the right shoulder and upper extremity shows hemovac in place. There is no active draining or bleeding from wound. The swelling and erythema at right shoulder is improved. Motor and sensation is intact throughout right upper extremity. 2+ radial pulse and less than 2 sec refill is present. . - Constitutional General appearance: Present: no acute distress - Labs CBC & Chem 7: 01/15/21 06:06 01/13/21 05:45 Labs: Abnormal Lab Results - Last 24 Hours (Table) 01/15/21 Range/Units 06:06 RBC 3.04 L (4.10-5.20) X 10*6/uL Hgb 9.5 L (12.0-15.0) g/dL Hct 30.7 L (37.2-46.3) % MCV 101.0 H (80.0-97.0) fL MCHC 30.9 L (32.0-37.0) g/dL RDW 14.9 H (11.5-14.5) % Plt Count 453 H (140-440) X 10*3/uL MPV 9.2 L (9.5-12.2) fL Immature Gran # 0.10 H (0.00-0.04) X 10*3/uL Eosinophils # 0.01 L (0.04-0.35) X 10*3/uL Microbiology - Last 24 Hours (Table) 01/14/21 11:07 Gram Stain - Preliminary Arm - Right Wound Culture - Preliminary 01/14/21 17:30 Gram Stain - Preliminary Shoulder - Right Wound Culture - Preliminary 01/14/21 17:30 Gram Stain - Preliminary Shoulder - Right Wound Culture - Preliminary 01/10/21 21:52 Blood Culture - Preliminary Blood No Growth after 96 hours 01/14/21 17:30 Anaerobic Culture - Preliminary Shoulder - Right 01/14/21 17:30 Anaerobic Culture - Preliminary Shoulder - Right Assessment and Plan (1) Cellulitis of arm, right Narrative/Plan: She will continue with wound care, IV antibiotics, pain management and medical management. Cultures are pending. Anticipate discharge in 1-2 days to home with IV abiotic therapy per ID. Current Visit: Yes Status: Acute Code(s): L03.113 - CELLULITIS OF RIGHT UPPER LIMB SNOMED Code(s): 769146782 Time with Patient: Less than 30
--- NOTE | 2021-01-15 17:23 | PN ---
PROGRESS NOTE DATE OF SERVICE: 01/15/2021. REASON FOR FOLLOW UP: Right shoulder abscess and cellulitis. INTERVAL HISTORY: The patient did have low-grade fever last night. The patient did have I&D of the right shoulder with removal of the hardware and concern for deep infection. The patient tolerated the procedure well. Has been complaining of pain to the right shoulder . The patient denies any chest pain, or shortness of breath, cough, no abdominal pain and no diarrhea. PHYSICAL EXAMINATION: On examination, blood pressure 122/74, pulse 91, temperature 98.4. She is 95% on room air. General description is a middle-aged female lying in bed in no distress. Right shoulder is currently dressed up. No obvious drainage on the dressing. Lungs: Unlabored breathing, clear to auscultation anteriorly. Heart S1, S2 regular rate and rhythm. Abdomen soft, no tenderness. LABORATORY DATA: Hemoglobin 9.5, white count 8.1, BUN 8, creatinine 0.8. DIAGNOSTIC IMPRESSION AND PLAN: The with right shoulder abscess status post I&D and removal of infected hardware. The patient is currently covered with cefazolin to continue while waiting for the culture to finalize and monitor clinical course closely. MMODL / IJN: [id number] / MTDD
[2021-01-15] MEDS: OLANZapine 10 MG TAB PO SCH (20:43)
[2021-01-15] MEDS: MONTELUKAST 10 MG TAB PO SCH (20:43)
--- NOTE | 2021-01-15 22:25 | P.PN ---
Subjective Progress Note Date: 01/15/21 This is a 65-year-old female with recent right humeral fracture repair, status post fall, admitted with right upper extremity cellulitis. Ultrasound of right upper extremity reported possible hematoma or abscess seroma at the right shoulder,CT did not report fluid collection. Maintained on IV antibiotics of Kefzol as per infectious disease. Afebrile, normal WBC, hemoglobin 10, platelets 355. Renal function stable. Reports positive pain, positive edema. Denies chest pain, palpitations or shortness of breath. Magnesium 1.4. 01/14/2021 pain significantly improved, recently medicated with [place]. Mid- line placed for IV antibiotics at discharge. Afebrile, normal WBC. Magnesium 1.4. Denies chest pain, palpitations or shortness of breath. 01/15/2021 status post removal of plate and screws, right proximal humerus with I & D of right shoulder, postop day #1. Tolerated procedure well. Reports positive pain. Denies numbness tingling. Maintained on cefazolin as per ID. Afebrile, normal WBC. Cultures pending. Denies chest pain, palpitations or shortness of breath. Maintaining O2 sats in the 90s on room air. Follow-up magnesium level pending. Midline placed for DC IV antibiotics. Objective - Vital Signs Vital signs: Vital Signs Temp 98.3 F 01/15/21 18:51 Pulse 100 01/15/21 20:43 Resp 18 01/15/21 18:51 BP 113/68 01/15/21 18:51 Pulse Ox 94 L 01/15/21 18:51 Intake & Output 01/15/21 01/15/21 01/16/21 06:59 18:59 06:59 Intake Total 240 Output Total 16 Balance 224 Intake: Oral 240 Output: Drainage 15 Right Shoulder 15 Urine 1 Other: Voiding Method Toilet Diaper # Voids 2 5 - Exam PHYSICAL EXAM: VITAL SIGNS: As above GENERAL: Sitting up in bed, no acute distress HEENT: Conjunctivae normal. eyes normal. Oral mucosa moist NECK: No JVD. No thyroid enlargement. No LNs CARDIOVASCULAR: S1, S2 regular. No murmur. RESPIRATION: Breath sounds diminished in the bases. No rhonchi or crackles. ABDOMEN: Soft, nontender . No guarding. no masses palpable.Bowel sounds heard. Extremtities: Right arm/shoulder dressing clean dry and intact with Hemovac , improving swelling/erythema, hand and digits flexible, positive radial pulse. PSYCHIATRY: Alert and oriented X3, mood and affect normal. NERVOUS SYSTEM: Cranial N 2-12 grossly normal. Moves all 4 limbs. No focal deficits. Strength and sensation grossly intact. Skin: Warm and dry, no rash - Labs CBC & Chem 7: 01/15/21 06:06 01/13/21 05:45 Labs: Abnormal Lab Results - Last 24 Hours (Table) 01/15/21 Range/Units 06:06 RBC 3.04 L (4.10-5.20) X 10*6/uL Hgb 9.5 L (12.0-15.0) g/dL Hct 30.7 L (37.2-46.3) % MCV 101.0 H (80.0-97.0) fL MCHC 30.9 L (32.0-37.0) g/dL RDW 14.9 H (11.5-14.5) % Plt Count 453 H (140-440) X 10*3/uL MPV 9.2 L (9.5-12.2) fL Immature Gran # 0.10 H (0.00-0.04) X 10*3/uL Eosinophils # 0.01 L (0.04-0.35) X 10*3/uL Microbiology - Last 24 Hours (Table) 01/14/21 17:30 Gram Stain - Preliminary Shoulder - Right Wound Culture - Preliminary 01/14/21 17:30 Gram Stain - Preliminary Shoulder - Right Wound Culture - Preliminary 01/14/21 11:07 Gram Stain - Preliminary Arm - Right Wound Culture - Preliminary 01/10/21 21:52 Blood Culture - Preliminary Blood No Growth after 96 hours 01/14/21 17:30 Anaerobic Culture - Preliminary Shoulder - Right 01/14/21 17:30 Anaerobic Culture - Preliminary Shoulder - Right Assessment and Plan Assessment: recent right humeral fracture repair, status post fall admitted with right upper extremity cellulitis. Status post I&D with removal of plate and screws, right proximal humerus UTI ruled out, culture reporting no growth Hypomagnesemia Cocaine, THC in the urine Anemia, appears to be at baseline, possibly chronic History of nicotine dependence Name: Continue on current medication regime ,monitoring and symptomatic treatme nt. Pain management. Wound care. Cultures finalizing, IV antibiotics as per ID. Follow-up magnesium level pending . The impression and plan of care has been dictated as directed. : I performed a history and examination of this patient, discussed the same with the dictator. I agree with the dictator's note ,documented as a scribe. Any additional findings or plans will be noted.
[2021-01-16] MEDS: MAGNESIUM SULFATE-D5W PMX 1 GM in DEXTROSE/WATER 1 100ML.BAG IVPB SCH ×4 (00:40→16:50)
[2021-01-16] MEDS: LACTATED RINGERS 1,000 ML IV SCH ×2 (00:45→10:47)
[2021-01-16] MEDS: HYDROcodone/APAP 10-325MG 1 EACH TAB PO PRN ×3 (05:07→23:27)
[2021-01-16] MEDS: PANTOPRAZOLE 40 MG TABLET PO SCH (06:58)
[2021-01-16] MEDS: HYDROmorphone 1 MG/ML 1 ML SYRINGE IVP PRN ×2 (06:58→14:59)
[2021-01-16] MEDS: IPRATROPIUM 0.5 MG/2.5 ML NEBU INHALATION SCH ×4 (07:25→20:50)
[2021-01-16] MEDS: FORMOTEROL FUMARATE 20 MCG/2 ML NEBU INHALATION SCH ×2 (07:25→21:00)
[2021-01-16 09:53] LABS: Basophils # (A) 0.02 X 10*3/uL (0.00-0.10); Basophils % (A) 0.2 %; Eosinophils # (A) 0.13 X 10*3/uL (0.04-0.35); Eosinophils % (A) 1.5 %; HCT 30.9 % (37.2-46.3); HGB 9.6 g/dL (12.0-15.0); Lymphocytes # (A) 3.03 X 10*3/uL (0.90-5.00); Lymphocytes % (A) 34.7 %; MCH 31.3 pg (27.0-32.0); MCHC 31.1 g/dL (32.0-37.0); MCV 100.7 fL (80.0-97.0); Mean Platelet Volume 9.1 fL (9.5-12.2); Monocytes # (A) 0.74 X 10*3/uL (0.20-1.00); Monocytes % (A) 8.5 %; Neutrophils # (A) 4.74 X 10*3/uL (1.80-7.70); Neutrophils % (A) 54.3 %; Platelet Count 494 X 10*3/uL (140-440); RBC 3.07 X 10*6/uL (4.10-5.20); RDW 14.9 % (11.5-14.5); WBC 8.73 X 10*3/uL (4.50-10.00)
[2021-01-16] MEDS: BACLOFEN 10 MG TAB PO SCH ×2 (10:39→19:43)
[2021-01-16] MEDS: NON FORMULARY DRUG (Lisdexamfetamine Dimesylate [Vyvanse] 50 MG Capsule) PO SCH (10:40)
[2021-01-16] MEDS: hydrOXYzine pamoate 25 MG CAP PO SCH (10:40)
[2021-01-16] MEDS: buPROPion SR 150 MG TABLET.ER PO SCH (10:40)
[2021-01-16] MEDS: LISINOPRIL-HCTZ 10-12.5 MG 1 EACH TAB PO SCH (10:40)
[2021-01-16] MEDS: DULoxetine HCL 60 MG CAPSULE.DR PO SCH ×2 (10:40→19:43)
[2021-01-16] MEDS: OXYBUTYNIN 15 MG TAB.ER.24 PO SCH ×2 (10:41→19:44)
[2021-01-16] MEDS: PREGABALIN 75 MG CAP PO SCH ×2 (10:44→19:43)
[2021-01-16 12:55] LABS: African American GFR (CKD) 111.6 (60.0-200.0); Anion Gap 5.9 mmol/L (4.00-12.00); BUN/Creat Ratio 26.67 Ratio (12.00-20.00); Calcium 8.6 mg/dL (8.7-10.3); Carbon Dioxide 29.1 mmol/L (21.6-31.8); Magnesium 1.8 mg/dL (1.5-2.4); Non-African American GFR(CKD) 96.3 (60.0-200.0); Potassium 4.1 mmol/L (3.5-5.5)
--- NOTE | 2021-01-16 12:57 | P.PN ---
Subjective Progress Note Date: 01/16/21 Principal diagnosis: Cellulitis RUE Patient is a pleasant 65-year-old female seen at bedside this morning. She is POD # 2 from I and D with hardware removal right shoulder. She feels the pain has improved some and is different. She is denying numbness, tingling, fever, chills or other. PHX: We have been following her for her right upper extremity cellulitis where she is status post ORIF of right proximal humerus fracture performed by Dr. Martínez 2 months ago. She has been on IV antibiotics where the erythema had been improving some however worsened over the past day or so. She had a CT of the right upper arm which was negative for deep fluid collection or abscess. Was also negative for acute fracture. Blood and urine cultures are pending. She has no new complaints today. She denies fever or chills. She continues to have pain at the right upper extremity as expected. She denies new numbness or tingling. Objective - Vital Signs Vital signs: Vital Signs Temp 98.2 F 01/16/21 07:29 Pulse 83 01/16/21 07:42 Resp 16 01/16/21 07:29 BP 119/68 01/16/21 07:29 Pulse Ox 94 L 01/16/21 07:29 Intake & Output 01/15/21 01/16/21 01/16/21 18:59 06:59 18:59 Intake Total 240 100 180 Output Total 16 Balance 224 100 180 Intake: Intake, IV Titration 100 Amount ceFAZolin 2 gm In Sodium 100 Chloride 0.9% 50 ml @ 100 mls/hr IVPB Q8H [facility] Rx#: [id number] Oral 240 180 Output: Drainage 15 Right Shoulder 15 Urine 1 Other: Voiding Method Toilet Toilet Diaper Diaper # Voids 5 1 - Exam Inspection of the right shoulder and upper extremity shows hemovac in place. There is minimal in canister. There is no active draining or bleeding from wound. The swelling and erythema at right shoulder is improved. Motor and sensation is intact throughout right upper extremity. 2+ radial pulse and less than 2 sec refill is present. . - Constitutional General appearance: Present: no acute distress - Labs CBC & Chem 7: 01/16/21 05:23 01/13/21 05:45 Labs: Abnormal Lab Results - Last 24 Hours (Table) 01/15/21 01/16/21 Range/Units 22:47 05:23 RBC 3.07 L (4.10-5.20) X 10*6/uL Hgb 9.6 L (12.0-15.0) g/dL Hct 30.9 L (37.2-46.3) % MCV 100.7 H (80.0-97.0) fL MCHC 31.1 L (32.0-37.0) g/dL RDW 14.9 H (11.5-14.5) % Plt Count 494 H (140-440) X 10*3/uL MPV 9.1 L (9.5-12.2) fL Immature Gran # 0.07 H (0.00-0.04) X 10*3/uL Magnesium 1.5 L (1.6-2.3) mg/dL Microbiology - Last 24 Hours (Table) 01/14/21 11:07 Gram Stain - Final Arm - Right Wound Culture - Final 01/10/21 21:52 Blood Culture - Preliminary Blood No Growth after 120 hours 01/14/21 17:30 Gram Stain - Preliminary Shoulder - Right Wound Culture - Preliminary 01/14/21 17:30 Gram Stain - Preliminary Shoulder - Right Wound Culture - Preliminary Assessment and Plan (1) Cellulitis of arm, right Narrative/Plan: She will continue with wound care, IV antibiotics, pain management and medical management. Will D/C drain tomorrow/Wednesday. Cultures are pending. Anticipate discharge in 1-2 days to home with IV abiotic therapy per ID. Current Visit: Yes Status: Acute Code(s): L03.113 - CELLULITIS OF RIGHT UPPER LIMB SNOMED Code(s): 149732664 Time with Patient: Less than 30
[2021-01-16 13:57] VITALS: BMI 26.1
--- NOTE | 2021-01-16 14:22 | PN ---
PROGRESS NOTE DATE OF SERVICE: 01/16/2021 REASON FOR FOLLOWUP: Right shoulder abscess and cellulitis. INTERVAL HISTORY: The patient is afebrile. Still complaining of significant pain to the right shoulder area. Denies any chest pain, shortness of breath or cough. No nausea, no vomiting. No abdominal pain. No diarrhea. PHYSICAL EXAMINATION: Blood pressure 119/68, pulse of 90, temperature 98.2. She is 94% on room air. General description is a middle-aged female up in the bed in no distress. Respiratory system: Unlabored breathing. Clear to auscultation anteriorly. Heart S1, S2. Regular rate and rhythm. Abdomen is soft, no tenderness. Right shoulder is currently dressed. No obvious drainage on the dressing. LABS: Hemoglobin 9.1, white count 8.73. Wound culture so far pending. DIAGNOSTIC IMPRESSION AND PLAN: Patient with right shoulder abscess, status post extensive surgery and removal of the hardware. Waiting for the culture to finalize to determine discharge antibiotics. Continue Cefazolin because of MULTIPLE ANTIBIOTIC ALLERGIES. Course of antibiotics should be at least 4-6 weeks. Continue supportive care. MMODL / IJN: [id number] /
--- NOTE | 2021-01-16 17:35 | P.PN ---
Subjective Progress Note Date: 01/16/21 This is a 65-year-old female with recent right humeral fracture repair, status post fall, admitted with right upper extremity cellulitis. Ultrasound of right upper extremity reported possible hematoma or abscess seroma at the right shoulder,CT did not report fluid collection. Maintained on IV antibiotics of Kefzol as per infectious disease. Afebrile, normal WBC, hemoglobin 10, platelets 355. Renal function stable. Reports positive pain, positive edema. Denies chest pain, palpitations or shortness of breath. Magnesium 1.4. 01/14/2021 pain significantly improved, recently medicated with [place]. Mid- line placed for IV antibiotics at discharge. Afebrile, normal WBC. Magnesium 1.4. Denies chest pain, palpitations or shortness of breath. 01/15/2021 status post removal of plate and screws, right proximal humerus with I & D of right shoulder, postop day #1. Tolerated procedure well. Reports positive pain. Denies numbness tingling. Maintained on cefazolin as per ID. Afebrile, normal WBC. Cultures pending. Denies chest pain, palpitations or shortness of breath. Maintaining O2 sats in the 90s on room air. Follow-up magnesium level pending. Midline placed for DC IV antibiotics. 01/16/2021 status post I&D/hardware removal of right shoulder ,postop day #2. Pain and edema significantly improved. Continues on cefazolin, cultures pending. Afebrile, normal WBC. Objective - Vital Signs Vital signs: Vital Signs Temp 98.2 F 01/16/21 14:35 Pulse 94 01/16/21 14:35 Resp 16 01/16/21 14:35 BP 100/57 01/16/21 14:35 Pulse Ox 97 01/16/21 14:35 Intake & Output 01/15/21 01/16/21 01/16/21 18:59 06:59 18:59 Intake Total 240 100 180 Output Total 16 Balance 224 100 180 Weight 69 kg Intake: Intake, IV Titration 100 Amount ceFAZolin 2 gm In Sodium 100 Chloride 0.9% 50 ml @ 100 mls/hr IVPB Q8H [facility] Rx#: [id number] Oral 240 180 Output: Drainage 15 Right Shoulder 15 Urine 1 Other: Voiding Method Toilet Toilet Diaper Diaper # Voids 5 1 - Exam PHYSICAL EXAM: VITAL SIGNS: As above GENERAL: Sitting up in bed, no acute distress. HEENT: Conjunctivae normal. eyes normal. Oral mucosa moist. NECK: No JVD. No thyroid enlargement. No LNs CARDIOVASCULAR: S1, S2 regular. No murmur. RESPIRATION: Breath sounds diminished in the bases. No rhonchi or crackles. ABDOMEN: Soft, nontender . No guarding. no masses palpable.Bowel sounds heard. Extremtities: Right arm/shoulder dressing clean dry and intact with Hemovac- minimal drg, softer with decreasing swelling/erythema, hand and digits flexible, positive radial pulse. PSYCHIATRY: Alert and oriented X3, mood and affect normal. NERVOUS SYSTEM: Cranial N 2-12 grossly normal. Moves all 4 limbs. No focal deficits. Strength and sensation grossly intact. Skin: Warm and dry, no rash Microbiology 01/14/21 11:07 Arm - Right Gram Stain - Final 01/14/21 11:07 Arm - Right Wound Culture - Final 01/10/21 21:52 Blood Blood Culture - Preliminary No Growth after 120 hours 01/14/21 17:30 Shoulder - Right Gram Stain - Preliminary 01/14/21 17:30 Shoulder - Right Wound Culture - Preliminary 01/14/21 17:30 Shoulder - Right Gram Stain - Preliminary 01/14/21 17:30 Shoulder - Right Wound Culture - Preliminary 01/14/21 17:30 Shoulder - Right Anaerobic Culture - Preliminary 01/14/21 17:30 Shoulder - Right Anaerobic Culture - Preliminary 01/11/21 00:14 Urine,Voided Urine Culture - Final - Labs CBC & Chem 7: 01/16/21 05:23 01/16/21 05:23 Labs: Abnormal Lab Results - Last 24 Hours (Table) 01/15/21 01/16/21 01/16/21 Range/Units 22:47 05:23 05:23 RBC 3.07 L (4.10-5.20) X 10*6/uL Hgb 9.6 L (12.0-15.0) g/dL Hct 30.9 L (37.2-46.3) % MCV 100.7 H (80.0-97.0) fL MCHC 31.1 L (32.0-37.0) g/dL RDW 14.9 H (11.5-14.5) % Plt Count 494 H (140-440) X 10*3/uL MPV 9.1 L (9.5-12.2) fL Immature Gran # 0.07 H (0.00-0.04) X 10*3/uL BUN/Creatinine Ratio 26.67 H (12.00-20.00) Ratio Calcium 8.6 L (8.7-10.3) mg/dL Magnesium 1.5 L (1.6-2.3) mg/dL Microbiology - Last 24 Hours (Table) 01/14/21 11:07 Gram Stain - Final Arm - Right Wound Culture - Final 01/10/21 21:52 Blood Culture - Preliminary Blood No Growth after 120 hours 01/14/21 17:30 Gram Stain - Preliminary Shoulder - Right Wound Culture - Preliminary 01/14/21 17:30 Gram Stain - Preliminary Shoulder - Right Wound Culture - Preliminary Assessment and Plan Assessment: recent right humeral fracture repair, status post fall admitted with right upper extremity cellulitis. Status post I&D with removal of plate and screws, right proximal humerus UTI ruled out, culture reporting no growth Hypomagnesemia Cocaine, THC in the urine Anemia, appears to be at baseline, possibly chronic History of nicotine dependence Name: Continue on current medication regime ,monitoring and symptomatic treatment. IV antibiotics as per ID. Pain management.Wound care. Discharge planning in progress as per orthopedic surgery pending finalized cultures. The impression and plan of care has been dictated as directed. : I performed a history and examination of this patient, discussed the same with the dictator. I agree with the dictator's note ,documented as a scribe. Any additional findings or plans will be noted.
[2021-01-16] MEDS: MONTELUKAST 10 MG TAB PO SCH (19:43)
[2021-01-16] MEDS: HYDROmorphone 0.5 MG/0.5 ML SYRINGE IVP PRN (19:44)
[2021-01-16] MEDS: OLANZapine 10 MG TAB PO SCH (19:44)
[2021-01-17] MEDS: HYDROmorphone 0.5 MG/0.5 ML SYRINGE IVP PRN ×4 (05:49→20:34)
[2021-01-17] MEDS: FORMOTEROL FUMARATE 20 MCG/2 ML NEBU INHALATION SCH ×2 (07:24→19:00)
[2021-01-17] MEDS: IPRATROPIUM 0.5 MG/2.5 ML NEBU INHALATION SCH ×4 (07:24→19:00)
[2021-01-17] MEDS: OXYBUTYNIN 15 MG TAB.ER.24 PO SCH ×2 (09:48→19:13)
[2021-01-17] MEDS: DULoxetine HCL 60 MG CAPSULE.DR PO SCH ×2 (09:49→19:14)
[2021-01-17] MEDS: buPROPion SR 150 MG TABLET.ER PO SCH (09:49)
[2021-01-17] MEDS: BACLOFEN 10 MG TAB PO SCH ×2 (09:49→19:14)
[2021-01-17] MEDS: LISINOPRIL-HCTZ 10-12.5 MG 1 EACH TAB PO SCH (09:50)
[2021-01-17] MEDS: PANTOPRAZOLE 40 MG TABLET PO SCH (09:50)
[2021-01-17] MEDS: hydrOXYzine pamoate 25 MG CAP PO SCH (09:50)
[2021-01-17] MEDS: PREGABALIN 75 MG CAP PO SCH ×2 (09:51→19:14)
[2021-01-17] MEDS: HYDROcodone/APAP 10-325MG 1 EACH TAB PO PRN ×2 (09:52→17:26)
[2021-01-17] MEDS: NON FORMULARY DRUG (Lisdexamfetamine Dimesylate [Vyvanse] 50 MG Capsule) PO SCH (09:52)
--- NOTE | 2021-01-17 15:01 | P.PN ---
Subjective Progress Note Date: 01/17/21 Principal diagnosis: Cellulitis RUE Patient is a pleasant 65-year-old female seen at bedside this morning. She is POD # 3 from I and D with hardware removal right shoulder. She feels the pain has continued and not improved lately. She is denying numbness, tingling, fever, chills or other. PHX: We have been following her for her right upper extremity cellulitis where she is status post ORIF of right proximal humerus fracture performed by Dr. Martínez 2 months ago. She has been on IV antibiotics where the erythema had been improving some however worsened over the past day or so. She had a CT of the right upper arm which was negative for deep fluid collection or abscess. Was also negative for acute fracture. Blood and urine cultures are pending. She has no new complaints today. She denies fever or chills. She continues to have pain at the right upper extremity as expected. She denies new numbness or tingling. Objective - Vital Signs Vital signs: Vital Signs Temp 98.4 F 01/17/21 14:11 Pulse 91 01/17/21 14:11 Resp 17 01/17/21 14:11 BP 97/56 01/17/21 14:11 Pulse Ox 97 01/17/21 14:11 Intake & Output 01/16/21 01/17/21 01/17/21 18:59 06:59 18:59 Intake Total 180 1080 Output Total 10 42 Balance 170 1038 Weight 69 kg Intake: Oral 180 1080 Output: Drainage 10 42 Right Shoulder 10 42 Other: Voiding Method Toilet Toilet Toilet Diaper Diaper Diaper # Voids 4 1 1 # Bowel Movements 0 - Exam Inspection of the right shoulder and upper extremity shows hemovac in place. Th ere is minimal in canister. There is yellowish collection in the tubing. There is no active draining or bleeding from wound. The swelling and erythema at right shoulder is improved overall. There is some firmness around the proximal shoulder and wound. Motor and sensation is intact throughout right upper extremity. 2+ radial pulse and less than 2 sec refill is present. . - Constitutional General appearance: Present: no acute distress - Labs CBC & Chem 7: 01/16/21 05:23 01/16/21 05:23 Labs: Microbiology - Last 24 Hours (Table) 01/10/21 21:52 Blood Culture - Final Blood No Growth after 144 hours 01/14/21 17:30 Anaerobic Culture - Preliminary Shoulder - Right 01/14/21 17:30 Gram Stain - Final Shoulder - Right Wound Culture - Final 01/14/21 17:30 Gram Stain - Final Shoulder - Right Wound Culture - Final 01/14/21 11:07 Gram Stain - Final Arm - Right Wound Culture - Final Assessment and Plan (1) Cellulitis of arm, right Narrative/Plan: She will continue with wound care, IV antibiotics, pain management and medical management. Will keep drain for now and discuss the patient with . Cu ltures continue to be negative, she is afebrile and stable WBC. Will continue to monitor closely and make recommendations as appropriate. Current Visit: Yes Status: Acute Code(s): L03.113 - CELLULITIS OF RIGHT UPPER LIMB SNOMED Code(s): 167649950 Time with Patient: Less than 30
--- NOTE | 2021-01-17 18:06 | P.PN ---
Subjective Progress Note Date: 01/17/21 This is a 65-year-old female with recent right humeral fracture repair, status post fall, admitted with right upper extremity cellulitis. Ultrasound of right upper extremity reported possible hematoma or abscess seroma at the right shoulder,CT did not report fluid collection. Maintained on IV antibiotics of Kefzol as per infectious disease. Afebrile, normal WBC, hemoglobin 10, platelets 355. Renal function stable. Reports positive pain, positive edema. Denies chest pain, palpitations or shortness of breath. Magnesium 1.4. 01/14/2021 pain significantly improved, recently medicated with [place]. Mid- line placed for IV antibiotics at discharge. Afebrile, normal WBC. Magnesium 1.4. Denies chest pain, palpitations or shortness of breath. 01/15/2021 status post removal of plate and screws, right proximal humerus with I & D of right shoulder, postop day #1. Tolerated procedure well. Reports positive pain. Denies numbness tingling. Maintained on cefazolin as per ID. Afebrile, normal WBC. Cultures pending. Denies chest pain, palpitations or shortness of breath. Maintaining O2 sats in the 90s on room air. Follow-up magnesium level pending. Midline placed for DC IV antibiotics. 01/16/2021 status post I&D/hardware removal of right shoulder ,postop day #2. Pain and edema significantly improved. Continues on cefazolin, cultures pending. Afebrile, normal WBC. 01/17/2021 midline occluded/infiltrated, scheduled for replacement. Reporting pain of affected extremity, with mild increase in edema. Denies numbness or tingling. Afebrile, normal WBC, wound culture negative, anaerobic pending. Denies chest pain, palpitations or shortness of breath. Objective - Vital Signs Vital signs: Vital Signs Temp 98.4 F 01/17/21 14:11 Pulse 91 01/17/21 14:11 Resp 17 01/17/21 14:11 BP 97/56 01/17/21 14:11 Pulse Ox 97 01/17/21 14:11 Intake & Output 01/16/21 01/17/21 01/17/21 18:59 06:59 18:59 Intake Total 180 1966 Output Total 10 42 Balance 170 1923 Weight 69 kg Intake: Oral 180 1966 Output: Drainage 10 42 Right Shoulder 10 42 Other: Voiding Method Toilet Toilet Toilet Diaper Diaper Diaper # Voids 4 1 1 # Bowel Movements 0 - Exam PHYSICAL EXAM: VITAL SIGNS: As above GENERAL: Sitting up in bed, no acute distress. HEENT: Conjunctivae normal. eyes normal. Oral mucosa moist. NECK: No JVD. No thyroid enlargement. No LNs CARDIOVASCULAR: S1, S2 regular. No murmur. RESPIRATION: Breath sounds diminished in the bases. ABDOMEN: Soft, nontender . No guarding. no masses palpable.Bowel sounds heard. Extremtities: Right arm/shoulder dressing clean dry and intact, hemovac present with minimal serosang. drg., soft with improving swelling/erythema, hand and digits flexible, positive radial pulse. PSYCHIATRY: Alert and oriented X3, mood and affect normal. NERVOUS SYSTEM: Cranial N 2-12 grossly normal. Moves all 4 limbs. No focal deficits. Strength and sensation grossly intact. Skin: Warm and dry, no rash Microbiology 01/10/21 21:52 Blood Blood Culture - Final No Growth after 144 hours 01/14/21 17:30 Shoulder - Right Anaerobic Culture - Preliminary 01/14/21 17:30 Shoulder - Right Gram Stain - Final 01/14/21 17:30 Shoulder - Right Wound Culture - Final 01/14/21 17:30 Shoulder - Right Gram Stain - Final 01/14/21 17:30 Shoulder - Right Wound Culture - Final 01/14/21 11:07 Arm - Right Gram Stain - Final 01/14/21 11:07 Arm - Right Wound Culture - Final 01/14/21 17:30 Shoulder - Right Anaerobic Culture - Preliminary 01/11/21 00:14 Urine,Voided Urine Culture - Final - Labs CBC & Chem 7: 01/16/21 05:23 01/16/21 05:23 Labs: Microbiology - Last 24 Hours (Table) 01/10/21 21:52 Blood Culture - Final Blood No Growth after 144 hours 01/14/21 17:30 Anaerobic Culture - Preliminary Shoulder - Right 01/14/21 17:30 Gram Stain - Final Shoulder - Right Wound Culture - Final 01/14/21 17:30 Gram Stain - Final Shoulder - Right Wound Culture - Final Assessment and Plan Assessment: recent right humeral fracture repair, status post fall admitted with right upper extremity cellulitis. Status post I&D with removal of plate and screws, right p roximal humerus UTI ruled out, culture reporting no growth Hypomagnesemia Cocaine, THC in the urine Anemia, appears to be at baseline, possibly chronic History of nicotine dependence Name: Continue on current medication regime ,monitoring and symptomatic treatment. Cultures finalizing IV antibiotics as per ID. Midline replacement pending. Pain management.Wound care. Discharge planning in progress as per orthopedic surgery. The impression and plan of care has been dictated as directed. : I performed a history and examination of this patient, discussed the same with the dictator. I agree with the dictator's note ,documented as a scribe. Any additional findings or plans will be noted.
[2021-01-17] MEDS: MONTELUKAST 10 MG TAB PO SCH (19:13)
[2021-01-17] MEDS: OLANZapine 10 MG TAB PO SCH (19:13)
[2021-01-17] MEDS: LORazepam 2 MG/ML INJ IV PRN (22:17)
[2021-01-18] MEDS: HYDROmorphone 0.5 MG/0.5 ML SYRINGE IVP PRN ×3 (02:38→18:22)
--- NOTE | 2021-01-18 06:51 | PN ---
PROGRESS NOTE DATE OF SERVICE: 01/17/2021 REASON FOR FOLLOWUP: Left shoulder septic arthritis and abscess. INTERVAL HISTORY: Patient is afebrile. The patient complaining of more pain to the left shoulder area. The patient denies having any chest pain, shortness of breath or cough. No nausea, no vomiting. No abdominal pain or diarrhea. PHYSICAL EXAMINATION: Blood pressure 123/70 with a pulse of 82, temperature 98.1, she is 96% on room air. General description is a middle-aged female up in the bed in no distress. Respiratory system: Unlabored breathing, decreased breath sounds at the bases, no wheezes. Heart S1, S2. Regular rate and rhythm. Abdomen is soft, no tenderness. LABS: Hemoglobin 9.1, white count 8.73, BUN of 16, creatinine 0.6. DIAGNOSTIC IMPRESSION AND PLAN: Patient with right shoulder septic arthritis and abscess status post I&D and removal of the hardware. OR cultures are pending. Blood cultures are negative. Patient did have multiple antibiotic allergies, covered with cefepime. To continue adjusting antibiotic further based on the culture report. Continue supportive care. MMODL / IJN: [id number] /
[2021-01-18] MEDS: PREGABALIN 75 MG CAP PO SCH ×2 (07:54→20:20)
[2021-01-18] MEDS: BACLOFEN 10 MG TAB PO SCH ×2 (07:55→20:20)
[2021-01-18] MEDS: LISINOPRIL-HCTZ 10-12.5 MG 1 EACH TAB PO SCH (07:55)
[2021-01-18] MEDS: DULoxetine HCL 60 MG CAPSULE.DR PO SCH ×2 (07:55→20:20)
[2021-01-18] MEDS: PANTOPRAZOLE 40 MG TABLET PO SCH (07:55)
[2021-01-18] MEDS: buPROPion SR 150 MG TABLET.ER PO SCH (07:55)
[2021-01-18] MEDS: OXYBUTYNIN 15 MG TAB.ER.24 PO SCH ×2 (07:55→20:20)
[2021-01-18] MEDS: hydrOXYzine pamoate 25 MG CAP PO SCH (07:56)
[2021-01-18] MEDS: IPRATROPIUM 0.5 MG/2.5 ML NEBU INHALATION SCH ×4 (08:03→19:38)
[2021-01-18] MEDS: FORMOTEROL FUMARATE 20 MCG/2 ML NEBU INHALATION SCH ×2 (08:03→19:38)
[2021-01-18] MEDS: NON FORMULARY DRUG (Lisdexamfetamine Dimesylate [Vyvanse] 50 MG Capsule) PO SCH (09:01)
[2021-01-18] MEDS: HYDROcodone/APAP 10-325MG 1 EACH TAB PO PRN ×2 (13:49→20:20)
--- NOTE | 2021-01-18 13:56 | P.PN ---
Progress Note - Text Progress Note Date: 01/18/21 Orthopedics: History of present illness: Patient is a pleasant 65-year-old female who is seen in the bedside for follow up evaluation of her right shoulder. She is known to have recently undergone an ORIF of the right shoulder approximately [address] Sekou Martínez for her right proximal humerus fracture. She followed up with him in outpatient setting approximately 3-4 weeks ago and had been improving without difficulty postoperat ively. She sustained a fall at home on 01/08/2021 and presented to [facility]. She was transferred to [facility] for further evaluation. She was started on antibiotics. She is experiencing significant swelling and pain in her right upper extremity. Multiple imaging modalities were taken. She continue with antibiotic medications. She had some improvement with treatment but then her symptoms worsened. She was found to have a right shoulder subcutaneous infection. She underwent surgical intervention with Dr. Sekou Martínez on 01/10/2021 with removal of her previously placed right proximal humerus hardware with right shoulder irrigation and debridement of deep infection. Since that time she has continued to improve. She keeps a drain in place that her right shoulder. She continues to have some drainage from the site. She does feel her pain is improving. She is now in for some active range of motion of her right elbow. The erythema at her right upper extremity has significantly improved. She's been seen by multiple medical providers including medicine and infectious disease. They're planning for a midline placement for antibiotic medication the outpatient setting. Cultures have come back positive for beta-hemolytic strep group C. Medicine states this will most likely not be inserted until this coming 01/20/2021. Patient has continued with Kefzol. She is eating and voiding without difficulty. Patient's past medical history includes COPD, hypertension, and morbid obesity. Physical Exam: Patient is awake, alert, and oriented 3 Vital signs stable Good chest excursion with deep inspiration and expiration Dressing over the right shoulder is removed; dressing is reapplied with 4 x 4 and paper tape Surgical incision site is clean, dry, and intact with no active drainage Suture remains intact over the right shoulder at the surgical site Drain is intact to the right shoulder with mostly serosanguineous drainage with some mild vanilla colored drainage Continued swelling over the right shoulder which has had improvement since the admission into the hospital No significant swelling over the right forearm, right wrist, more right hand Patient is able to perform some flexion and extension of the right elbow but does have some pain while doing so Significant cellulitis of the right upper extremity has had significant improvement since her admission Continued erythema and cellulitis at the distal portion of her right shoulder below the surgical site with some firmness to palpation Neurovascularly intact right upper extremity 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 Patient is able to wiggle fingers of the right hand without significant difficulty Pertinent studies: Right shoulder wound cultures resulted in finalized on 01/14/2021: Beta- hemolytic strep group C X-rays of the right elbow and forearm taken on 01/10/2021: No evidence of fracture or dislocation at the right elbow or forearm; soft tissue swelling; correlate for cellulitis Ultrasound venous Doppler of the right upper extremity taken on 01/09/2021: Exam limited, but no deep vein thrombosis is evident; at the anterior shoulder site of the surgical incision there is a complex fluid collection measuring 9.4 cm X-rays of the right shoulder taken on 01/09/2021: No acute fracture dislocation evidence of occult soft tissue swelling; ORIF changes of the right proximal humerus are again noted; bone fragments present about the right shoulder similar to prior Assessment: Status post removal of right shoulder hardware at the right proximal humerus hardware with right shoulder irrigation and debridement of deep infection Right upper extremity swelling and pain Right upper extremity cellulitis Right shoulder wound culture positive for beta-hemolytic strep group C Status post ORIF for right proximal humerus fracture approximately 2 months ago Status post fall COPD Hypertension Morbid obesity Plan: 1. Patient is status post removal of right shoulder hardware at the right proximal humerus hardware with right shoulder irrigation and debridement of deep infection. Following surgery her right shoulder she has had improvement of her cellulitis and right upper extremity pain and swelling. She continues to have a drain in place that her right shoulder. She has continued to have some drainage at the drain site. We'll continue to keep this drain intact. Depending on the amount of drainage, we may plan to discontinue this drain tomorrow or Wednesday. She will continue to be seen and examined by medicine and infectious disease. Patient is currently planning to have a PICC or midline placed this coming 01/20/2021. Patient will continue to remain in the hospital until at least this coming Wednesday. If the patient continues to improve and following line placement, patient may be discharged with antibiotic medications as set forth by Dr. Walker. Patient will need medical clearance by medicine and infectious disease prior to discharge. Patient will continue with IV Dilaudid and oral [place] as prescribed as needed for pain control. She may continue to work on gentle range of motion of her right upper extremity. She should avoid any excessive activities of the right upper extremity. We will continue to follow patient closely. Patient may continue with daily dressing changes as needed. 2. Patient will continue to be seeing examined by Dr. Walker infectious disease who will plan to prescribe appropriate antibiotic medication the time of discharge; current antibiotic regimen to continue as dictated by Dr. Walker 3. Patient will continue be seen and examined by medicine for her other medical diagnoses
--- NOTE | 2021-01-18 14:54 | PN ---
PROGRESS NOTE DATE OF SERVICE: 01/18/2021 REASON FOR FOLLOWUP: Right shoulder septic joint and abscess. INTERVAL HISTORY: The patient is afebrile. The patient is breathing comfortably. The patient denies having any chest pain. No shortness of breath or cough. Pain to the right shoulder slightly decreased. PHYSICAL EXAMINATION: Blood pressure 115/73, pulse 97, temperature 98.2. She is 95% on room air. General description is a middle-aged female up in bed in no distress. Respiratory system: Unlabored breathing, clear to auscultation anteriorly. Heart S1, S2. Regular rate and rhythm. Abdomen is soft, no tenderness. Right shoulder is currently dressed with no drainage on the dressing. LABS: No new labs have been obtained today. Culture now showing group C strep. DIAGNOSTIC IMPRESSION AND PLAN: Patient with right shoulder septic arthritis with infected hardware which has been removed and abscess that has been drained. Culture with group C strep. The patient does have multiple antibiotic allergies. Responding to cefazolin, to continue for at least 4-6 weeks and close outpatient followup. MMODL / IJN: [id number] /
--- NOTE | 2021-01-18 15:11 | P.PN ---
Subjective Progress Note Date: 01/18/21 Principal diagnosis: Her right upper extremity cellulitis, right humeral fracture repair Mrs. Bolaños is a 65-year-old female with a recent humeral fracture repair status post fall admitted for right upper extremity cellulitis. Ultrasound of the right upper extremity showed hematoma/abscess. Eventually patient had right shoulder incision and drainage done on 01/14/2021 by orthopedics. She has been started on IV antibiotics by Dr. Walker. On 01/18/2021- patient is being seen as a follow-up. She is seen and examined at the bedside. She is comfortably sitting in a chair by the bedside and appears to be in no acute distress. Patient mentions that the pain in her right shoulder is better and the redness seems to be receding. She denies having any fevers chills or rigors. No cough or difficulty in breathing. No chest pain or palpitations. No abdominal pain nausea vomiting or diarrhea. On reviewing her vitals T-max 98, heart rate 88, respiratory rate 18, blood pressure 104/67, saturating at 94% on room air. Reviewing her labs from the last couple of days white count of 8.7, hemoglobin 9.6, platelets 494. Sodium 137, potassium 4.1, chloride 102, bicarbonate 29, B and 16, creatinine 0.6. Magnesium 1.9. No new labs from this morning. Medications: [place], albuterol, baclofen, bupropion, cefazolin, Benadryl, Colace, Cymbalta, vitamin D2, lisinopril/hydrochlorothiazide, hydroxyzine, Atrovent, Ativan, magnesium, Singulair, Zyprexa, Zofran, Ditropan, Protonix, Lyrica, senna Objective - Vital Signs Vital signs: Vital Signs Temp 98.2 F 01/18/21 07:24 Pulse 97 01/18/21 07:24 Resp 18 01/18/21 08:00 BP 116/73 01/18/21 07:24 Pulse Ox 95 01/18/21 07:24 Intake & Output 01/17/21 01/18/21 01/18/21 18:59 06:59 18:59 Intake Total 1966 Output Total 42 Balance 1923 Intake: Oral 1965 Output: Drainage 42 Right Shoulder 42 Other: Voiding Method Toilet Toilet Diaper Diaper # Voids 5 1 1 - Exam PHYSICAL EXAM: GENERAL: Sitting up in in a chair by bed, no acute distress. HEENT: Conjunctivae normal. eyes normal. Oral mucosa moist. NECK: No JVD. No thyroid enlargement. No LNs CARDIOVASCULAR: S1, S2 regular. No murmur. RESPIRATION: Breath sounds diminished in the bases. ABDOMEN: Soft, nontender . No guarding. no masses palpable.Bowel sounds heard. Extremtities: Right shoulder dressing clean dry and intact, hemovac present with 15-20 mL serosanguineous discharge, soft with improving swelling/erythema, hand and digits flexible, positive radial pulse. PSYCHIATRY: Alert and oriented X3, mood and affect normal. NERVOUS SYSTEM: Moves all 4 limbs. No focal deficits. Strength and sensation grossly intact. Skin: Warm and dry, no - Labs CBC & Chem 7: 01/16/21 05:23 01/16/21 05:23 Labs: Microbiology - Last 24 Hours (Table) 01/14/21 17:30 Anaerobic Culture - Preliminary Shoulder - Right 01/14/21 17:30 Gram Stain - Final Shoulder - Right Wound Culture - Preliminary Beta Hemolytic Strep Group C Assessment and Plan Assessment: ASSESSMENT Right shoulder/upper arm extremity cellulitis Recent right humeral fracture status post repair Hypomagnesemia UDS positive for cocaine Chronic anemia Nicotine dependence COPD Hypertension History of MRSA Former smoker History of anxiety with depression PLAN: Patient had I&D of the right shoulder done, wound VAC in place with minimal discharge. Antibiotics to be continued on antibiotics in the form of cefazolin, ID Dr. Walker on board and following the patient. Patient to be continued in this current medication regimen. Orthopedics on board and following the patient closely. Further recommendations to follow depending on the progress of the patient.
[2021-01-18] MEDS: OLANZapine 10 MG TAB PO SCH (20:20)
[2021-01-18] MEDS: MONTELUKAST 10 MG TAB PO SCH (20:20)
[2021-01-18] MEDS: LORazepam 2 MG/ML INJ IV PRN (22:10)
[2021-01-19] MEDS: HYDROcodone/APAP 10-325MG 1 EACH TAB PO PRN ×3 (06:02→20:49)
[2021-01-19] MEDS: hydrOXYzine pamoate 25 MG CAP PO SCH (07:16)
[2021-01-19] MEDS: buPROPion SR 150 MG TABLET.ER PO SCH (07:16)
[2021-01-19] MEDS: BACLOFEN 10 MG TAB PO SCH ×2 (07:17→20:49)
[2021-01-19] MEDS: PREGABALIN 75 MG CAP PO SCH ×2 (07:17→20:49)
[2021-01-19] MEDS: LISINOPRIL-HCTZ 10-12.5 MG 1 EACH TAB PO SCH (07:17)
[2021-01-19] MEDS: DULoxetine HCL 60 MG CAPSULE.DR PO SCH ×2 (07:17→20:49)
[2021-01-19] MEDS: OXYBUTYNIN 15 MG TAB.ER.24 PO SCH ×2 (07:17→20:49)
[2021-01-19] MEDS: ENOXAPARIN 40 MG/0.4 ML SYRINGE SQ SCH (07:18)
[2021-01-19] MEDS: PANTOPRAZOLE 40 MG TABLET PO SCH (07:18)
[2021-01-19] MEDS: FORMOTEROL FUMARATE 20 MCG/2 ML NEBU INHALATION SCH ×2 (07:57→19:38)
[2021-01-19] MEDS: IPRATROPIUM 0.5 MG/2.5 ML NEBU INHALATION SCH ×4 (07:57→19:38)
[2021-01-19] MEDS ORDERED: NICOTINE 21MG/24HR PATCH TRANSDERM SCH (09:00)
[2021-01-19 09:30] LABS: Basophils # (A) 0.03 X 10*3/uL (0.00-0.10); Basophils % (A) 0.5 %; Eosinophils # (A) 0.14 X 10*3/uL (0.04-0.35); Eosinophils % (A) 2.1 %; HCT 29.5 % (37.2-46.3); HGB 9.2 g/dL (12.0-15.0); Lymphocytes # (A) 2.46 X 10*3/uL (0.90-5.00); Lymphocytes % (A) 37.3 %; MCH 31.3 pg (27.0-32.0); MCHC 31.2 g/dL (32.0-37.0); MCV 100.3 fL (80.0-97.0); Monocytes # (A) 0.71 X 10*3/uL (0.20-1.00); Monocytes % (A) 10.8 %; Neutrophils # (A) 3.24 X 10*3/uL (1.80-7.70); Platelet Count 456 X 10*3/uL (140-440); RBC 2.94 X 10*6/uL (4.10-5.20); RDW 14.6 % (11.5-14.5)
[2021-01-19 09:45] LABS: African American GFR (CKD) 118.5 (60.0-200.0); Anion Gap 6.1 mmol/L (4.00-12.00); Calcium 8.8 mg/dL (8.7-10.3); Carbon Dioxide 29.9 mmol/L (21.6-31.8); Non-African American GFR(CKD) 102.3 (60.0-200.0); Potassium 4.5 mmol/L (3.5-5.5)
[2021-01-19] MEDS: NON FORMULARY DRUG (Lisdexamfetamine Dimesylate [Vyvanse] 50 MG Capsule) PO SCH (11:23)
--- NOTE | 2021-01-19 12:37 | P.PN ---
Progress Note - Text Progress Note Date: 01/19/21 Orthopedics: History of present illness: Patient is a pleasant 65-year-old female who is seen in the bedside for follow up evaluation of her right shoulder. She is known to have recently undergone an ORIF of the right shoulder approximately [address] Sekou Martínez for her right proximal humerus fracture. She followed up with him in outpatient setting approximately 3-4 weeks ago and had been improving without difficulty postoperat ively. She sustained a fall at home on 01/08/2021 and presented to [facility]. She was transferred to [facility] for further evaluation. She was started on antibiotics. She was experiencing significant swelling and pain in her right upper extremity. Multiple imaging modalities were taken. She continue with antibiotic medications. She had some improvement with treatment but then her symptoms worsened. She was found to have a right shoulder subcutaneous infection. She underwent surgical intervention with Dr. Sekou Martínez on 01/10/2021 with removal of her previously placed right proximal humerus hardware with right shoulder irrigation and debridement of deep infection. Since that time she has continued to improve. She does feel her pain is currently different than it was prior to surgical intervention. She states her drain fell out yesterday. She's had some mild drainage from the drain site. She does feel her pain is improving does require IV Dilaudid and oral Orland for pain control. She is able to perform some active range of motion of her right elbow. The erythema at her right upper extremity has significantly improved. She continues to be seen by multiple medical providers including medicine and infectious disease. They're planning for a PICC line placement for antibiotic medication the outpatient setting. Patient states midline clothes on 2 separate occasions. PICC line is scheduled to be placed tomorrow, 01/20/2021. Cultures have come back positive for beta-hemolytic strep group C. Patient has continued with Kefzol. She is eating and voiding without difficulty. Patient's past medical history includes COPD, hypertension, and morbid obesity. Patient has been discussed in detail with infectious disease who states patient will be cleared for discharge following PICC line placement. They have prescribed antibiotic medication for the outpatient setting. Physical Exam: Patient is awake, alert, and oriented 3 Vital signs stable Good chest excursion with deep inspiration and expiration Dressing over the right shoulder is removed; dressing is reapplied with 4 x 4 and paper tape Surgical incision site is clean, dry, and intact with no active drainage Suture remains intact over the right shoulder at the surgical site Drain fell out yesterday; drain site is wet but is not having active drainage; no drainage with palpation around the drain site Continued swelling over the right shoulder which has had improvement since the admission into the hospital No significant swelling over the right forearm, right wrist, more right hand Patient is able to perform some flexion and extension of the right elbow but does have some pain while doing so Significant cellulitis of the right upper extremity has had significant improvement since her admission Continued erythema and cellulitis at the distal portion of her right shoulder below the surgical site with some firmness to palpation Some firmness to palpation over the right elbow Neurovascularly intact right upper extremity 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 Patient is able to wiggle fingers of the right hand without significant difficulty Pertinent studies: Right shoulder wound cultures resulted in finalized on 01/14/2021: Beta- hemolytic strep group C X-rays of the right elbow and forearm taken on 01/10/2021: No evidence of fracture or dislocation at the right elbow or forearm; soft tissue swelling; correlate for cellulitis Ultrasound venous Doppler of the right upper extremity taken on 01/09/2021: Exam limited, but no deep vein thrombosis is evident; at the anterior shoulder site of the surgical incision there is a complex fluid collection measuring 9.4 cm X-rays of the right shoulder taken on 01/09/2021: No acute fracture dislocation evidence of occult soft tissue swelling; ORIF changes of the right proximal humerus are again noted; bone fragments present about the right shoulder similar to prior Assessment: Status post removal of right shoulder hardware at the right proximal humerus hardware with right shoulder irrigation and debridement of deep infection Right upper extremity swelling and pain Right upper extremity cellulitis Right shoulder wound culture positive for beta-hemolytic strep group C Status post ORIF for right proximal humerus fracture approximately 2 months ago Status post fall COPD Hypertension Morbid obesity Plan: 1. We will continue with our plan as set forth previously. Patient is status post removal of right shoulder hardware at the right proximal humerus hardware with right shoulder irrigation and debridement of deep infection. Following surgery her right shoulder she has had improvement of her cellulitis and right upper extremity pain and swelling. She will continue to be seen and examined by medicine and infectious disease. Patient is currently planning to have a PICC line placed this coming 01/20/2021. Patient will continue to remain in the hospital until at least this coming Wednesday. If the patient continues to improve and following line placement, patient may be discharged with antibiotic medications as set forth by Dr. Walker. Patient will need medical clearance by medicine and infectious disease prior to discharge. Infectious disease did state today they would clear the patient for discharge home. Patient will continue with IV Dilaudid and oral Orland as prescribed as needed for pain control. We're trying to wean the patient off of IV Dilaudid in anticipation for discharge home tomorrow. She may continue to work on gentle range of motion of her right upper extremity. She should avoid any excessive activities of the right upper extremity. We will continue to follow patient closely. Patient may continue with daily dressing changes as needed. 2. Patient will continue to be seeing examined by Dr. Walker infectious disease who will plan to prescribe appropriate antibiotic medication the time of discharge; current antibiotic regimen to continue as dictated by Dr. Walker 3. Patient will continue be seen and examined by medicine for her other medical diagnoses
[2021-01-19] MEDS: HYDROmorphone 0.5 MG/0.5 ML SYRINGE IVP PRN (15:23)
--- NOTE | 2021-01-19 18:59 | PN ---
PROGRESS NOTE DATE OF SERVICE: 01/19/2021 REASON FOR FOLLOWUP: Right shoulder septic arthritis and abscess. INTERVAL HISTORY: Patient is afebrile. The patient is breathing comfortably. Pain to the right shoulder is currently controlled. The patient's drain did fall out. Denies any chest pain, shortness of breath or cough. No abdominal pain or diarrhea. PHYSICAL EXAMINATION: Blood pressure 101/61, pulse of 84, temperature 97.9. She is 94% on room air. General description is a middle-aged female up in the bed in no distress. HEENT examination show no pallor or scleral icterus. Lungs: Unlabored breathing, clear to auscultation. Heart S1, S2, regular rate and rhythm. Abdomen is soft, no tenderness. Right shoulder is currently dressed, no drainage on the dressing. Right arm swelling has decreased. LABS: Hemoglobin 9.1, white count 6.60. BUN of 12, creatinine 0.5. DIAGNOSTIC IMPRESSION AND PLAN: Patient with right shoulder abscess, septic arthritis, status post I&D and removal of the hardware. Culture with beta-hemolytic group C strep. Patient is on cefazolin because of multiple antibiotic allergies, to continue another 4 weeks and close outpatient followup. MMODL / IJN: [id number] /
[2021-01-19] MEDS: MONTELUKAST 10 MG TAB PO SCH (20:49)
[2021-01-19] MEDS: OLANZapine 10 MG TAB PO SCH (20:49)
[2021-01-19] MEDS: LORazepam 2 MG/ML INJ IV PRN (21:59)
--- NOTE | 2021-01-19 22:17 | P.PN ---
Subjective Progress Note Date: 01/19/21 Principal diagnosis: right upper extremity cellulitis, right humeral fracture repair Mrs. Bolaños is a 65-year-old female with a recent humeral fracture repair status post fall admitted for right upper extremity cellulitis. Ultrasound of the right upper extremity showed hematoma/abscess. Eventually patient had right shoulder incision and drainage done on 01/14/2021 by orthopedics. She has been started on IV antibiotics by Dr. Walker. On 01/18/2021- patient is being seen as a follow-up. She is seen and examined at the bedside. She is comfortably sitting in a chair by the bedside and appears to be in no acute distress. Patient mentions that the pain in her right shoulder is better and the redness seems to be receding. She denies having any fevers chills or rigors. No cough or difficulty in breathing. No chest pain or palpitations. No abdominal pain nausea vomiting or diarrhea. On reviewing her vitals T-max 98, heart rate 88, respiratory rate 18, blood pressure 104/67, saturating at 94% on room air. Reviewing her labs from the last couple of days white count of 8.7, hemoglobin 9.6, platelets 494. Sodium 137, potassium 4.1, chloride 102, bicarbonate 29, B and 16, creatinine 0.6. Magnesium 1.9. No new labs from this morning. On 01/19/2021 -patient is seen and examined at the bedside. She is sitting comfortably in the bed appears to be no acute distress. Patient states that the wound VAC was displaced and fell off. She still complains of drainage from the surgical site. States that the redness and pain are improving. Patient denies having any fevers chills or rigors. No chest pain or palpitations. No cough or difficulty breathing. Normal pain nausea vomiting or diarrhea. No dysuria or hematuria. On reviewing the vitals temperature 98.2, heart rate 100, respiratory rate 17, blood pressure 107/67, saturating at 96%. On reviewing her labs from this morning white count of 6.6, hemoglobin 9.2, platelets 456. Sodium 137, potassium 4.5, chloride 101, bicarb 29, BUN 12, creatinine 0.5. Medications: Narco, albuterol, baclofen, bupropion, cefazolin, Benadryl, Colace, Cymbalta, vitamin D2, lisinopril/hydrochlorothiazide, hydroxyzine, Atrovent, Ativan, magnesium, Singulair, Zyprexa, Zofran, Ditropan, Protonix, Lyrica, senna Objective - Vital Signs Vital signs: Vital Signs Temp 97.9 F 01/19/21 07:15 Pulse 84 01/19/21 07:15 Resp 18 01/19/21 08:00 BP 101/61 01/19/21 07:15 Pulse Ox 94 L 01/19/21 07:15 Intake & Output 01/18/21 01/19/21 01/19/21 18:59 06:59 18:59 Intake Total 1012 Output Total 150 Balance -150 1012 Intake: Oral 1012 Output: Drainage 150 Right Shoulder 150 Other: Voiding Method Toilet Diaper # Voids 3 2 - Exam PHYSICAL EXAM: GENERAL: Sitting up in in a chair by bed, no acute distress. HEENT: Conjunctivae normal. eyes normal. Oral mucosa moist. NECK: No JVD. No thyroid enlargement. CARDIOVASCULAR: S1, S2 regular. No murmur. RESPIRATION: Breath sounds diminished in the bases. ABDOMEN: Soft, nontender . No guarding. no masses palpable.Bowel sounds heard. Extremtities: Right shoulder dressing with mild serosanguineous discharge, soft with improving swelling/erythema, hand and digits flexible, positive radial pulse. PSYCHIATRY: Alert and oriented X3, mood and affect normal. NERVOUS SYSTEM: Moves all 4 limbs. No focal deficits. Strength and sensation grossly intact. Skin: Warm and dry, no - Labs CBC & Chem 7: 01/19/21 05:56 01/19/21 05:56 Labs: Microbiology - Last 24 Hours (Table) 01/14/21 17:30 Anaerobic Culture - Final Shoulder - Right 01/14/21 17:30 Anaerobic Culture - Final Shoulder - Right 01/14/21 17:30 Gram Stain - Final Shoulder - Right Wound Culture - Final Beta Hemolytic Strep Group C Assessment and Plan Assessment: ASSESSMENT Right shoulder/upper arm extremity cellulitis Recent right humeral fracture status post repair Hypomagnesemia UDS positive for cocaine Chronic anemia Nicotine dependence COPD Hypertension History of MRSA Former smoker History of anxiety with depression PLAN: Patient had I&D of the right shoulder done, wound VAc fell off yesterday. She has minimal drainage from the surgical site. Antibiotics to be continued in the form of cefazolin, ID Dr. Walker on board and following the patient. Pat ient to be continued in this current medication regimen. Orthopedics on board and following the patient closely. She is awaiting PICC line placement . Further recommendations to follow depending on the progress of the patient.
[2021-01-20] MEDS: HYDROmorphone 0.5 MG/0.5 ML SYRINGE IVP PRN ×2 (02:07→19:29)
[2021-01-20] MEDS: LISINOPRIL-HCTZ 10-12.5 MG 1 EACH TAB PO SCH (07:08)
[2021-01-20] MEDS: OXYBUTYNIN 15 MG TAB.ER.24 PO SCH ×2 (07:08→20:28)
[2021-01-20] MEDS: PANTOPRAZOLE 40 MG TABLET PO SCH (07:08)
[2021-01-20] MEDS: buPROPion SR 150 MG TABLET.ER PO SCH (07:09)
[2021-01-20] MEDS: hydrOXYzine pamoate 25 MG CAP PO SCH (07:09)
[2021-01-20] MEDS: ENOXAPARIN 40 MG/0.4 ML SYRINGE SQ SCH (07:10)
[2021-01-20] MEDS: DULoxetine HCL 60 MG CAPSULE.DR PO SCH ×2 (07:10→20:28)
[2021-01-20] MEDS: PREGABALIN 75 MG CAP PO SCH ×2 (07:10→20:28)
[2021-01-20] MEDS: BACLOFEN 10 MG TAB PO SCH ×2 (07:10→20:28)
[2021-01-20] MEDS: NON FORMULARY DRUG (Lisdexamfetamine Dimesylate [Vyvanse] 50 MG Capsule) PO SCH (07:11)
[2021-01-20] MEDS: HYDROcodone/APAP 10-325MG 1 EACH TAB PO PRN ×4 (07:40→21:45)
[2021-01-20] MEDS: FORMOTEROL FUMARATE 20 MCG/2 ML NEBU INHALATION SCH ×2 (07:59→19:42)
[2021-01-20] MEDS: IPRATROPIUM 0.5 MG/2.5 ML NEBU INHALATION SCH ×4 (07:59→19:42)
--- NOTE | 2021-01-20 12:11 | P.PN ---
Progress Note - Text Progress Note Date: 01/20/21 Orthopedics: History of present illness: Patient is a pleasant 65-year-old female who is seen in the bedside for follow up evaluation of her right shoulder. She has not had any change in her symptoms since yesterday. She is known to have recently undergone an ORIF of the right shoulder approximately [address] Sekou Martínez for her right proximal humerus fracture. She followed up with him in outpatient setting approximately 3-4 weeks ago and had been improving without difficulty postoperatively. She sustained a fall at home on 01/08/2021 and presented to [facility]. She was transferred to [facility] for further evaluation. She was started on antibiotics. She was experiencing significant swelling and pain in her right upper extremity. Multiple imaging modalities were taken. She continue with antibiotic medications. She had some improvement with treatment but then her symptoms worsened. She was found to have a right shoulder subcutaneous infection. She underwent surgical intervention with Dr. Sekou Martínez on 01/10/2021 with removal of her previously placed right proximal humerus hardware with right shoulder irrigation and debridement of deep infection. Since that time she has continued to improve. She does feel her pain is currently different than it was prior to surgical intervention. She states her drain fell out yesterday. She's had some mild drainage from the drain site. She does feel her pain is improving does require IV Dilaudid and oral Emmons for pain control. She is able to perform some active range of motion of her right elbow. The erythema at her right upper extremity has significantly improved. She continues to be seen by multiple medical providers including medicine and infectious disease. They're planning for a PICC line placement for antibiotic medication the outpatient setting. Patient states midline clothes on 2 separate occasions. No one from interventional radiology is available today. PICC line is now now scheduled to be placed tomorrow, 01/21/2021. Cultures have come back positive for beta-hemolytic strep group C. Patient has continued with Kefzol. She is eating and voiding without difficulty. Patient's past medical history includes COPD, hypertension, and morbid obesity. Patient has been discussed in detail with infectious disease who states patient will be cleared for discharge following PICC line placement. They have prescribed antibiotic medication for the outpatient setting. Physical Exam: Patient is awake, alert, and oriented 3 Vital signs stable Good chest excursion with deep inspiration and expiration Dressing over the right shoulder is removed; dressing is reapplied with 4 x 4 and paper tape Surgical incision site is clean, dry, and intact with no active drainage Suture remains intact over the right shoulder at the surgical site Dressing over the right shoulder remains clean, dry, and intact with no drainage on the dressing Continued swelling over the right shoulder which has had improvement since the admission into the hospital No significant swelling over the right forearm, right wrist, more right hand Patient is able to perform some flexion and extension of the right elbow but does have some pain while doing so Significant cellulitis of the right upper extremity has had significant improvement since her admission Continued erythema and cellulitis at the distal portion of her right shoulder below the surgical site with some firmness to palpation Some firmness to palpation over the right elbow Neurovascularly intact right upper extremity 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 Patient is able to wiggle fingers of the right hand without significant difficulty Pertinent studies: Right shoulder wound cultures resulted in finalized on 01/14/2021: Beta- hemolytic strep group C X-rays of the right elbow and forearm taken on 01/10/2021: No evidence of fracture or dislocation at the right elbow or forearm; soft tissue swelling; correlate for cellulitis Ultrasound venous Doppler of the right upper extremity taken on 01/09/2021: Exam limited, but no deep vein thrombosis is evident; at the anterior shoulder site of the surgical incision there is a complex fluid collection measuring 9.4 cm X-rays of the right shoulder taken on 01/09/2021: No acute fracture dislocation evidence of occult soft tissue swelling; ORIF changes of the right proximal humerus are again noted; bone fragments present about the right shoulder similar to prior Assessment: Status post removal of right shoulder hardware at the right proximal humerus hardware with right shoulder irrigation and debridement of deep infection Right upper extremity swelling and pain Right upper extremity cellulitis Right shoulder wound culture positive for beta-hemolytic strep group C Status post ORIF for right proximal humerus fracture approximately 2 months ago Status post fall COPD Hypertension Morbid obesity Plan: 1. We will continue with our plan as set forth previously. Patient is status post removal of right shoulder hardware at the right proximal humerus hardware with right shoulder irrigation and debridement of deep infection. Following surgery her right shoulder she has had improvement of her cellulitis and right upper extremity pain and swelling. She will continue to be seen and examined by medicine and infectious disease. Patient is currently planning to have a PICC line placed this coming 01/21/2021. Patient will continue to remain in the hospital until at least this coming Wednesday. If the patient continues to improve and following line placement, patient may be discharged with antibiotic medications as set forth by Dr. Walker. Patient will need medical clearance by medicine and infectious disease prior to discharge. Infectious disease did state today they would clear the patient for discharge home. Patient will continue with IV Dilaudid and oral Emmons as prescribed as needed for pain control. We're trying to wean the patient off of IV Dilaudid in anticipation for discharge home tomorrow. She may continue to work on gentle range of motion of her right upper extremity. She should avoid any excessive activities of the right upper extremity. We will continue to follow patient closely. Patient may continue with daily dressing changes as needed. 2. Patient will continue to be seeing examined by Dr. Walker infectious disease who will plan to prescribe appropriate antibiotic medication the time of discharge; current antibiotic regimen to continue as dictated by Dr. Walker 3. Patient will continue be seen and examined by medicine for her other medical diagnoses
[2021-01-20] MEDS: MONTELUKAST 10 MG TAB PO SCH (20:27)
[2021-01-20] MEDS: OLANZapine 10 MG TAB PO SCH (20:27)
[2021-01-21] MEDS: LORazepam 2 MG/ML INJ IV PRN (00:01)
[2021-01-21 01:05] VITALS: RESP 16
--- NOTE | 2021-01-21 07:09 | PN ---
PROGRESS NOTE DATE OF SERVICE: 01/20/2021 REASON FOR FOLLOWUP: Right shoulder abscess. INTERVAL HISTORY: Patient is afebrile. The patient is feeling better. Breathing comfortably. Overall pain to the right shoulder has decreased. The patient denies having any chest pain, shortness of breath or cough. No abdominal pain or any diarrhea. PHYSICAL EXAMINATION: Blood pressure is 124/69, pulse of 89, temperature 98.1, she is 96% on room air. General description is a middle-aged female up in the bed in no distress. Respiratory system: Unlabored breathing, decreased intensity of breath sounds. No wheeze. Heart S1, S2. Regular rate and rhythm. Abdomen is soft, no tenderness. LABS: Hemoglobin 9.1, white count 6.60, BUN of 12, creatinine 0.5. DIAGNOSTIC IMPRESSION AND PLAN: Patient with right shoulder abscess and infected hardware, status post debridement and removal of the hardware. Culture with group C strep. The patient does have multiple antibiotic allergies. Currently doing well on cefazolin 2 grams q.8 hours to continue for another 3-4 weeks and close outpatient followup. MMODL / IJN: [id number] /
[2021-01-21 07:34] VITALS: BP 108/67; PULSE 87; TEMP 98.2
[2021-01-21] MEDS: ENOXAPARIN 40 MG/0.4 ML SYRINGE SQ SCH (07:50)
[2021-01-21] MEDS: DULoxetine HCL 60 MG CAPSULE.DR PO SCH (07:51)
[2021-01-21] MEDS: HYDROcodone/APAP 10-325MG 1 EACH TAB PO PRN (07:51)
[2021-01-21] MEDS: PANTOPRAZOLE 40 MG TABLET PO SCH (07:51)
[2021-01-21] MEDS: BACLOFEN 10 MG TAB PO SCH (07:51)
[2021-01-21] MEDS: hydrOXYzine pamoate 25 MG CAP PO SCH (07:52)
[2021-01-21] MEDS: buPROPion SR 150 MG TABLET.ER PO SCH (07:53)
[2021-01-21] MEDS: LISINOPRIL-HCTZ 10-12.5 MG 1 EACH TAB PO SCH (07:53)
[2021-01-21] MEDS: OXYBUTYNIN 15 MG TAB.ER.24 PO SCH (07:54)
[2021-01-21] MEDS: NON FORMULARY DRUG (Lisdexamfetamine Dimesylate [Vyvanse] 50 MG Capsule) PO SCH (07:54)
[2021-01-21] MEDS: PREGABALIN 75 MG CAP PO SCH (07:54)
--- NOTE | 2021-01-21 08:45 | P.PN ---
Subjective Progress Note Date: 01/20/21 She is doing well today, swelling and tenderness of the RUE diminishing. Wound VAC off and minimal drainage. Pt for PICC placement today. Objective - Vital Signs Vital signs: Vital Signs Temp 98.2 F 01/21/21 06:55 Pulse 87 01/21/21 06:55 Resp 16 01/21/21 06:55 BP 108/67 01/21/21 06:55 Pulse Ox 94 L 01/21/21 06:55 Intake & Output 01/20/21 01/21/21 01/21/21 18:59 06:59 18:59 Intake Total 480 Balance 480 Weight 69 kg Intake: Oral 480 Other: Voiding Method Toilet Toilet Diaper # Voids 4 1 - Exam General: well nourished, well developed, NAD. Vitals reviewed Lungs: normal respiratory effort, no wheezes or rales CV: Regular rate and rhythm, no murmur. Peripheral pulses 2+ Abdomen: soft, nondistended, no organomegaly Skin: warm and dry. R shoulder erythema, diminishing induration - Labs CBC & Chem 7: 01/19/21 05:56 01/19/21 05:56 Assessment and Plan Plan: PICC insertion today, continue IV abx per ID. Discharge planning in progress
[2021-01-21] MEDS: IPRATROPIUM 0.5 MG/2.5 ML NEBU INHALATION SCH ×2 (08:54→12:06)
[2021-01-21] MEDS: FORMOTEROL FUMARATE 20 MCG/2 ML NEBU INHALATION SCH (08:54)
[2021-01-21] MEDS ORDERED: LIDOCAINE 1% INJ 10MG/ML (20 ML MDV) ONE (10:41)
--- NOTE | 2021-01-21 10:57 | P.DS ---
Providers Date of admission: 01/10/21 16:16 Expected date of discharge: 01/21/21 Attending physician: Amanda Kaiser Consults: 01/09/21 12:35 Consult Physician Routine Consulting Provider: Sekou Martínez Consult Reason/Comments: Right shoulder pain status post open reduction internal fixation Do you want consulting provider notified?: Already Contacted 01/10/21 09:35 Consult Physician Urgent Consulting Provider: Lio Walker Consult Reason/Comments: Right UE cellulitis Do you want consulting provider notified?: Yes 01/10/21 12:08 Consult Physician Urgent Consulting Provider: Juan Pablo Ogden Consult Reason/Comments: Medical Management; Hypokalemia Do you want consulting provider notified?: Yes 01/13/21 09:20 Consult Physician Routine Consulting Provider: Juan Pablo Ogden Consult Reason/Comments: med management Do you want consulting provider notified?: Already Contacted Primary care physician: Cynthia oLra - Discharge Diagnosis(es) (1) Cellulitis of arm, right Patient was admitted through the ED on 01/09/21 after suffering a fall at home and concerns for subluxation, pain and cellulitis. She is s/p ORIF right proximal humerus fracture two months ago. Radiologic studies showed stable fracture with healing and hardware intact. However cellulitis at the right shoulder progressed with presentation of fluid collection and abcess evolved depite IV antibiotics. She was taken to OR on 01/14/21 for I and D and hardware removal which she tolerated well without complication. She has continued on IV antibiotics where cultures have shown Group B strep. She is t have PICC placed and continue home IV antibiotic therapy. The swelling and erythema have improved since procedure. On day of discharge there is no drainage or bleeding. Pain is improved. There is no numbness or weakness. She is afebrile and labs within acceptable limits. She is tolerating PO meds and diet. She has had bowel movement and voiding. She denies new complaints including fever, chills, chest pain or shortness of breath, abdominal pain, slurred speech, dizziness or other. She will follow up as outpatient and monitored closely. Current Visit: Yes Status: Acute Priority: Medium Procedures: I and D with hardware removal right shoulder Patient Condition at Discharge: Fair Plan - Discharge Summary Discharge Rx Participant: No New Discharge Prescriptions: New ceFAZolin [Kefzol] 2 gm IVP Q8HR #42 vial HYDROcodone/APAP 10-325MG [[place] 10-325] 1 tab PO Q4HR PRN #42 tab PRN Reason: Pain Continue buPROPion SR [Wellbutrin SR] 150 mg PO QAM Oxybutynin Chloride [Ditropan XL] 15 mg PO BID Lisinopril-Hctz 10-12.5 mg [Zestoretic 10-12.5] 1 tab PO QAM Albuterol Nebulized [Ventolin Nebulized] 2.5 mg INHALATION RT-Q4H PRN #0 nebu PRN Reason: SOB/Wheezing Montelukast [Singulair] 10 mg PO HS DULoxetine HCL [Cymbalta] 60 mg PO BID OLANZapine [ZyPREXA] 10 mg PO HS Ergocalciferol (Vitamin D2) [Vitamin D2 (50,000 Iu)] 1,250 mcg PO TU hydrOXYzine pamoate [hydrOXYzine PAMOATE] 25 mg PO DAILY Docusate [Colace] 100 mg PO BID PRN PRN Reason: Constipation Lisdexamfetamine Dimesylate [Vyvanse] 50 mg PO QAM Umeclidinium Brm/Vilanterol Tr [Anoro Ellipta 62.5-25 Mcg INH] 1 puff INHALATION RT-DAILY Albuterol Inhaler [Ventolin Hfa Inhaler] 2 puff INHALATION RT-QID PRN PRN Reason: Shortness Of Breath Pregabalin [Lyrica] 150 mg PO BID Baclofen [Lioresal] 10 mg PO BID Discharge Medication List buPROPion SR [Wellbutrin SR] 150 mg PO QAM 06/27/15 [History] Lisinopril-Hctz 10-12.5 mg [Zestoretic 10-12.5] 1 tab PO QAM 07/15/15 [History] Oxybutynin Chloride [Ditropan XL] 15 mg PO BID 07/15/15 [History] Albuterol Nebulized [Ventolin Nebulized] 2.5 mg INHALATION RT-Q4H PRN #0 nebu 07/25/15 [Rx] Albuterol Inhaler [Ventolin Hfa Inhaler] 2 puff INHALATION RT-QID PRN 11/04/20 [History] DULoxetine HCL [Cymbalta] 60 mg PO BID 11/04/20 [History] Ergocalciferol (Vitamin D2) [Vitamin D2 (50,000 Iu)] 1,250 mcg PO TU 11/04/20 [History] Montelukast [Singulair] 10 mg PO HS 11/04/20 [History] OLANZapine [ZyPREXA] 10 mg PO HS 11/04/20 [History] Umeclidinium Brm/Vilanterol Tr [Anoro Ellipta 62.5-25 Mcg INH] 1 puff INHALATION RT-DAILY 11/04/20 [History] Baclofen [Lioresal] 10 mg PO BID 01/09/21 [History] Docusate [Colace] 100 mg PO BID PRN 01/09/21 [History] Lisdexamfetamine Dimesylate [Vyvanse] 50 mg PO QAM 01/09/21 [History] Pregabalin [Lyrica] 150 mg PO BID 01/09/21 [History] hydrOXYzine pamoate [hydrOXYzine PAMOATE] 25 mg PO DAILY 01/09/21 [History] ceFAZolin [Kefzol] 2 gm IVP Q8HR #42 vial 01/14/21 [Rx] HYDROcodone/APAP 10-325MG [[place] 10-325] 1 tab PO Q4HR PRN #42 tab 01/21/21 [Rx] Follow up Appointment(s)/Referral(s): Juan Pablo Ogden MD [STAFF PHYSICIAN] - 1 Week [facility], [NON-STAFF] - [facility], [REFERRING] - Lio Walker MD [STAFF PHYSICIAN] - 1 Week Sekou Martínez MD [STAFF PHYSICIAN] - 1 Week Ambulatory/Diagnostic Orders: Basic Metabolic Panel [LAB.AMB] Location: None Selected C Reactive Protein [LAB.AMB] Location: None Selected Complete Blood Count w/diff [LAB.AMB] Location: None Selected Activity/Diet/Wound Care/Special Instructions: Continue gentle range of motion as tolerated to the right shoulder, elbow, wrist, and hand. Antibiotics per infectious disease Keep wound clean and dry May shower and pat dry. No soaking No weightbearing right upper extremity Follow up with Dr. Martínez in 1 week. Discharge Disposition: HOME WITH HOME HEALTH SERVICES
[2021-01-21] MEDS ORDERED: LIDOCAINE 1% INJ 10MG/ML (20 ML MDV) SQ ONE (11:05)
--- NOTE | 2021-01-21 11:21 | PN ---
PROGRESS NOTE DATE OF SERVICE: 01/21/2021 REASON FOR FOLLOWUP: Right shoulder abscess and cellulitis. INTERVAL HISTORY: The patient is afebrile. The patient is breathing comfortably. Overall pain to the right shoulder is currently controlled though. No chest pain, shortness of breath or cough. No abdominal pain or diarrhea. PHYSICAL EXAMINATION: Blood pressure 138/67, pulse of 87, temperature 98.2. She is 94% on room air. General description is a middle-aged female up in the bed in no distress. Respiratory system: Unlabored breathing. Clear to auscultation anteriorly. Heart S1, S2. Regular rate and rhythm. Abdomen: Soft, no tenderness. LABS: Hemoglobin 9.4, white count 6.6, BUN of 12, creatinine 0.5. DIAGNOSTIC IMPRESSION AND PLAN: Patient with right shoulder abscess status post drainage of the abscess and removal of the hardware. Culture with group C strep. The patient does have MULTIPLE ANTIBIOTIC ALLERGIES currently being treated with cefazolin IV and close outpatient followup. MMODL / IJN: [id number] / SHAAN
--- NOTE | 2021-01-21 11:57 | IR ---
EXAMINATION TYPE: IR cvc insert >=5 years DATE OF EXAM: 01/21/2021 COMPARISON: NONE CLINICAL HISTORY: Infection Needs long-term intravenous access for antibiotics. PROCEDURE: Hand hygiene obtained with soap and water and alcohol-based hand rub. After informed consent, the skin overlying the left basilic vein was localized with ultrasound and no srikanth to be compressible and patent. An ultrasound image was obtained and submitted on the patient's c conde. The overlying skin was prepped and draped and Lidocaine was used for local anesthesia. A skin korey was made with a scalpel. Access was gained to the vein under ultrasound guidance with a 21 gau ge needle and a 0.018 inch wire was advanced. Access site was dilated with Peel-Away sheath and cath eter tailored to the appropriate length and advanced such that the distal tip is at the cavoatrial ju nction. Spot image was obtained verifying placement. Catheter was fixed to the skin and a sterile d ressing was placed following hemostasis. Catheter was aspirated and flushed with saline. Patient wa s discharged in stable condition without complication. Maximal barrier technique is utilized. Ultras ound image is documented on the chart. Ultrasound used with sterile technique. Fluoro time and fluoroscopic images submitted to document procedure: 0.1 minutes fluoroscopy time, 32 intraoperative images document the procedure IMPRESSION: STATUS POST ULTRASOUND AND FLUOROSCOPIC GUIDED PICC LINE PLACEMENT, READY FOR USE. THIS PROCEDURE WAS PERFORMED BY THE UNDERSIGNED.
--- NOTE | 2021-01-21 13:55 | P.PN ---
Subjective Progress Note Date: 01/21/21 This is a 65-year-old female with recent right humeral fracture repair, status post fall, admitted with right upper extremity cellulitis. Ultrasound of right upper extremity reported possible hematoma or abscess seroma at the right shoulder,CT did not report fluid collection. Maintained on IV antibiotics of Kefzol as per infectious disease. Afebrile, normal WBC, hemoglobin 10, platelets 355. Renal function stable. Reports positive pain, positive edema. Denies chest pain, palpitations or shortness of breath. Magnesium 1.4. 01/14/2021 pain significantly improved, recently medicated with Maud. Mid- line placed for IV antibiotics at discharge. Afebrile, normal WBC. Magnesium 1.4. Denies chest pain, palpitations or shortness of breath. 01/15/2021 status post removal of plate and screws, right proximal humerus with I & D of right shoulder, postop day #1. Tolerated procedure well. Reports positive pain. Denies numbness tingling. Maintained on cefazolin as per ID. Afebrile, normal WBC. Cultures pending. Denies chest pain, palpitations or shortness of breath. Maintaining O2 sats in the 90s on room air. Follow-up magnesium level pending. Midline placed for DC IV antibiotics. 01/16/2021 status post I&D/hardware removal of right shoulder ,postop day #2. Pain and edema significantly improved. Continues on cefazolin, cultures pending. Afebrile, normal WBC. 01/17/2021 midline occluded/infiltrated, scheduled for replacement. Reporting pain of affected extremity, with mild increase in edema. Denies numbness or tingling. Afebrile, normal WBC, wound culture negative, anaerobic pending. Denies chest pain, palpitations or shortness of breath. 01/21/2021 patient is being discharged home today pending PICC line placement and discharge IV antibiotics as per ID. Pain controlled. Denies numbness or weakness of affected extremity. Denies chest pain, palpitations or shortness of breath. Afebrile, normal WBC. Significant clinical improvement. Objective - Vital Signs Vital signs: Vital Signs Temp 98.2 F 01/21/21 06:55 Pulse 87 01/21/21 06:55 Resp 16 01/21/21 06:55 BP 108/67 01/21/21 06:55 Pulse Ox 94 L 01/21/21 06:55 Intake & Output 01/20/21 01/21/21 01/21/21 18:59 06:59 18:59 Intake Total 480 Balance 480 Weight 69 kg Intake: Oral 480 Other: Voiding Method Toilet Toilet Diaper # Voids 4 1 - Exam PHYSICAL EXAM: VITAL SIGNS: As above GENERAL: Sitting up in bed, no acute distress. HEENT: Conjunctivae normal. eyes normal. Oral mucosa moist. NECK: No JVD. No thyroid enlargement. No LNs CARDIOVASCULAR: S1, S2 regular. No murmur. RESPIRATION: Breath sounds diminished in the bases. ABDOMEN: Soft, nontender . No guarding. no masses palpable.Bowel sounds heard. Extremtities: Right arm/shoulder dressing clean dry and intact,soft with improving swelling/erythema, hand and digits flexible, positive radial pulse. PSYCHIATRY: Alert and oriented X3, mood and affect normal. NERVOUS SYSTEM: Cranial N 2-12 grossly normal. Moves all 4 limbs. No focal deficits. Strength and sensation grossly intact. Skin: Warm and dry, no rash Microbiology 01/14/21 17:30 Shoulder - Right Anaerobic Culture - Final 01/14/21 17:30 Shoulder - Right Anaerobic Culture - Final 01/14/21 17:30 Shoulder - Right Gram Stain - Final 01/14/21 17:30 Shoulder - Right Wound Culture - Final Beta Hemolytic Strep Group C 01/10/21 21:52 Blood Blood Culture - Final No Growth after 144 hours 01/14/21 17:30 Shoulder - Right Gram Stain - Final 01/14/21 17:30 Shoulder - Right Wound Culture - Final 01/14/21 11:07 Arm - Right Gram Stain - Final 01/14/21 11:07 Arm - Right Wound Culture - Final 01/11/21 00:14 Urine,Voided Urine Culture - Final - Labs CBC & Chem 7: 01/19/21 05:56 01/19/21 05:56 Assessment and Plan Assessment: recent right humeral fracture repair, status post fall admitted with right upper extremity cellulitis. Status post I&D with removal of plate and screws, right proximal humerus. Wound Culture reporting beta-hemolytic strep group C. UTI ruled out, culture reporting no growth. Hypomagnesemia Cocaine, THC in the urine Anemia, appears to be at baseline, possibly chronic History of nicotine dependence Name: Continue on current medication regime ,monitoring and symptomatic treatment. Discharge planning in progress for today, as per orthopedic surgery. Close monitoring with Weekly follow-up visits with PCP. The impression and plan of care has been dictated as directed. : I performed a history and examination of this patient, discussed the same with the dictator. I agree with the dictator's note ,documented as a scribe. Any additional findings or plans will be noted.
--- NOTE | 2021-01-22 13:18 | CDI ---
Documentation Clarification Form Date: 01/22/2021 01:06:06 PM From: Chucky Casey Admit Date: 01/10/2021 04:16:00 PM Patient Name: Aline Bolaños Visit Number: [id number] Discharge Date: 01/21/2021 01:26:00 PM ATTENTION: The Clinical Documentation Specialists (CDI) and [facility] Coding Staff appreciate your assistance in clarifying documentation. Please respond to the clarification below the line at the bottom and electronically sign. The CDI & [facility] Coding staff will review the response and follow-up if needed. Please note: Queries are made part of the Legal Health Record. If you have any questions, please contact the author of this message via ITS. Dr. Mauricio Clemons debridement is documented in the OR report 01/14. Additional clarification regarding the procedure is requested. History/Risk Factors: R shoulder abscess and cellulitis Clinical Indicators: infection of R shoulder internal fixation Treatment: removal of internal fixation R shoulder and debridement of SQ tissue Please clarify the type of procedure performed: [ ] Excisional debridement (the removal of necrotic, devitalized tissue or slough by means of cutting away of tissue) [ ] Non-excisional debridement (the removal of necrotic, devitalized tissue or slough by means of flushing, brushing, or washing. (Irrigation) [ ] Other; please specify [ ] Unable to determine Five elements required for accurate and compliant documentation of a debridement: Technique used (e.g., excisional, excised, cutting, brushing, jet lavage etc.) Instrument(s) used (e.g., scalpel, curette, etc.) Nature of the tissue removed (e.g., necrotic, devitalized tissues, non-viable tissue, etc.) Appearance and size of the wound (e.g., down to fresh bleeding tissue, 7cm x 10cm, etc.) Depth of the debridement* (e.g., skin, subcutaneous tissue, fascia, muscle, bone, etc.) MTDD
--- NOTE | 2021-01-31 08:33 | CDI ---
Documentation Clarification Form Date: 01/31/2021 08:23:25 AM From: Chucky Casey Admit Date: 01/10/2021 04:16:00 PM Patient Name: Aline Bolaños Visit Number: [id number] Discharge Date: 01/21/2021 01:26:00 PM ATTENTION: The Clinical Documentation Specialists (CDI) and [facility] Coding Staff appreciate your assistance in clarifying documentation. Please respond to the clarification below the line at the bottom and electronically sign. The CDI & [facility] Coding staff will review the response and follow-up if needed. Please note: Queries are made part of the Legal Health Record. If you have any questions, please contact the author of this message via ITS. Dr. Sekou Martínez A debridement is documented. Additional clarification regarding the procedure is requested. History/Risk Factors: Cellulitis R UE Clinical Indicators: Prior ORIF R shoulder Treatment: debridement of deep necrotic tissue R shoulder area Please clarify the type of procedure performed: [ ] Excisional debridement (the removal of necrotic, devitalized tissue or slough by means of cutting away of tissue) [ ] Non-excisional debridement (the removal of necrotic, devitalized tissue or slough by means of flushing, brushing, or washing. (Irrigation) [ ] Other; please specify [ ] Unable to determine It was an excisional debridement of deep devitalized tissue utilizing a scalpal and rongeur. SHAAN
== END 2021-01-21 13:26 | disposition home health service (06) | DRG 464 ==
LOC: EC 03:22 → 6NMEDSUR 05:11 → OBSVTOIN 01-10 16:16
PROVIDERS: ADMIT Orthopaedic Surgery Orthopaedic Surgery of the Spine; ATTEND Orthopaedic Surgery Orthopaedic Surgery of the Spine
PROC: 0J9D00Z Drainage of Right Upper Arm Subcutaneous Tissue and Fascia with Drainage Device, Open Approach (ICD-10-PCS; 2021-01-14)
PROC: 0JBD0ZZ Excision of Right Upper Arm Subcutaneous Tissue and Fascia, Open Approach (ICD-10-PCS; principal; 2021-01-14 09:05)
PROC: 0RPJ04Z Removal of Internal Fixation Device from Right Shoulder Joint, Open Approach (ICD-10-PCS; 2021-01-14 09:05)
PROC: 02HV33Z Insertion of Infusion Device into Superior Vena Cava, Percutaneous Approach (ICD-10-PCS; 2021-01-21)
PROC: B548ZZA Ultrasonography of Superior Vena Cava, Guidance (ICD-10-PCS; 2021-01-21)
DX: T84.610A Infection and inflammatory reaction due to internal fixation device of right humerus, initial encounter (principal); L03.113 Cellulitis of right upper limb; N39.0 Urinary tract infection, site not specified; E87.1 Hypo-osmolality and hyponatremia; Z68.44 Body mass index [BMI] 60.0-69.9, adult; M00.9 Pyogenic arthritis, unspecified; L02.413 Cutaneous abscess of right upper limb; M19.90 Unspecified osteoarthritis, unspecified site; Z96.641 Presence of right artificial hip joint; Z90.710 Acquired absence of both cervix and uterus; Z86.14 Personal history of Methicillin resistant Staphylococcus aureus infection; Z87.891 Personal history of nicotine dependence; Y92.009 Unspecified place in unspecified non-institutional (private) residence as the place of occurrence of the external cause; Z88.1 Allergy status to other antibiotic agents; Z80.8 Family history of malignant neoplasm of other organs or systems; J44.9 Chronic obstructive pulmonary disease, unspecified; F90.9 Attention-deficit hyperactivity disorder, unspecified type; F41.9 Anxiety disorder, unspecified; Z20.822 Contact with and (suspected) exposure to COVID-19; F32.9 Major depressive disorder, single episode, unspecified; D64.9 Anemia, unspecified; E87.6 Hypokalemia; I10 Essential (primary) hypertension; E66.01 Morbid (severe) obesity due to excess calories; E83.42 Hypomagnesemia; Z79.899 Other long term (current) drug therapy; B95.1 Streptococcus, group B, as the cause of diseases classified elsewhere; S42.201G Unspecified fracture of upper end of right humerus, subsequent encounter for fracture with delayed healing; W01.0XXD Fall on same level from slipping, tripping and stumbling without subsequent striking against object, subsequent encounter
CPT/HCPCS: 36410; 36573; 76937; 80048; 80306; 81001; 83735; 84132; 85025; 85652; 86140; 87040; 87070; 87075; 87086; 87205; 87635; 94640; 96374; 96375; 99284

== ENCOUNTER 2021-03-25 18:33 | Inpatient (IN) | payer MEDICARE ==
[2021-03-25] MEDS ORDERED: HYDROcodone/APAP 10-325MG 1 EACH TAB PO ONE (19:49)
--- NOTE | 2021-03-25 19:55 | ED ---
General Adult HPI - General Chief complaint: Extremity Problem,Nontraumatic Stated complaint: infection rt arm Time Seen by Provider: 03/25/21 19:40 Source: patient, RN notes reviewed, old records reviewed Mode of arrival: wheelchair Limitations: no limitations - History of Present Illness Initial comments: 65-year-old well-appearing white female, alert and oriented 4, presents to the emergency room with complaints of right arm pain. Patient has sustained a fall back in October and had surgery. She states the hardware got infected and she developed cellulitis and infection. She has since had a PICC line in her left arm and is on IV antibiotics however it is increasingly red and warm to touch. She had a CT of the shoulder today and was called by Dr. Walker and told to come to the emergency room because there is an abscess forming. -: month(s) (5) Location: right, upper extremity Severity scale (1-10): 8 Quality: aching, sharp Consistency: constant Improves with: medication ([place]) Worsens with: movement Associated Symptoms: denies other symptoms Treatments Prior to Arrival: none - Related Data Home Medications Medication Instructions Recorded Confirmed buPROPion SR [Wellbutrin SR] 150 mg PO QAM 06/27/15 01/09/21 Lisinopril-Hctz 10-12.5 mg 1 tab PO QAM 07/15/15 01/09/21 [Zestoretic 10-12.5] Oxybutynin Chloride [Ditropan XL] 15 mg PO BID 07/15/15 01/09/21 Albuterol Inhaler [Ventolin Hfa 2 puff INHALATION RT-QID PRN 11/04/20 01/09/21 Inhaler] DULoxetine HCL [Cymbalta] 60 mg PO BID 11/04/20 01/09/21 Ergocalciferol (Vitamin D2) 1,250 mcg PO TU 11/04/20 01/09/21 [Vitamin D2 (50,000 Iu)] Montelukast [Singulair] 10 mg PO HS 11/04/20 01/09/21 OLANZapine [ZyPREXA] 10 mg PO HS 11/04/20 01/09/21 Umeclidinium Brm/Vilanterol Tr 1 puff INHALATION RT-DAILY 11/04/20 01/09/21 [Anoro Ellipta 62.5-25 Mcg INH] Baclofen [Lioresal] 10 mg PO BID 01/09/21 01/09/21 Docusate [Colace] 100 mg PO BID PRN 01/09/21 01/09/21 Lisdexamfetamine Dimesylate 50 mg PO QAM 01/09/21 01/09/21 [Vyvanse] Pregabalin [Lyrica] 150 mg PO BID 01/09/21 01/09/21 hydrOXYzine pamoate [hydrOXYzine 25 mg PO DAILY 01/09/21 01/09/21 PAMOATE] Previous Rx's Medication Instructions Recorded Albuterol Nebulized [Ventolin 2.5 mg INHALATION RT-Q4H PRN #0 07/25/15 Nebulized] nebu ceFAZolin [Kefzol] 2 gm IVP Q8HR #42 vial 01/14/21 HYDROcodone/APAP 10-325MG [[place] 1 tab PO Q4HR PRN #42 tab 01/21/21 10-325] Allergies Allergy/AdvReac Type Severity Reaction Status Date / Time meprobamate [From Equagesic] Allergy Unknown Rash/Hives Verified 03/25/21 19:02 bone cement Allergy per Verified 03/25/21 19:02 allergy testing daptomycin Allergy Rash/Hives Verified 03/25/21 19:02 doxycycline Allergy tongue Verified 03/25/21 19:02 Swelling vancomycin Allergy Rash/Hives Verified 03/25/21 19:02 diazepam [From Valium] AdvReac "sends me Verified 03/25/21 19:02 into orbit" morphine AdvReac "confused" Verified 03/25/21 19:02 Review of Systems ROS Statement: Those systems with pertinent positive or pertinent negative responses have been documented in the HPI. ROS Other: All systems not noted in ROS Statement are negative. Past Medical History Past Medical History: COPD, Hypertension, Musculoskeletal Disorder, Osteoarthritis (OA) Additional Past Medical History / Comment(s): fx rt humerus, arm in sling, states mult bruises from fall History of Any Multi-Drug Resistant Organisms: MRSA Date of last positivie culture/infection: 2019 MDRO Source:: rt thumb Past Surgical History: Hysterectomy, Joint Replacement Additional Past Surgical History / Comment(s): rt hip replacement, laminplasty C3-C-7 Past Anesthesia/Blood Transfusion Reactions: Motion Sickness, Postoperative Nausea & Vomiting (PONV) Additional Past Anesthesia/Blood Transfusion Reaction / Comment(s): no blod transfusion. Past Psychological History: ADD/ADHD, Anxiety, Depression Smoking Status: Former smoker Past Alcohol Use History: None Reported Past Drug Use History: Marijuana - Past Family History Sister(s) Family Medical History: Cancer Additional Family Medical History / Comment(s): BRAIN STEM CANCER General Exam Limitations: no limitations General appearance: alert, in no apparent distress Head exam: Present: atraumatic, normocephalic, normal inspection Eye exam: Present: normal appearance, PERRL, EOMI. Absent: scleral icterus, conjunctival injection, periorbital swelling ENT exam: Present: normal exam, normal oropharynx, mucous membranes moist Neck exam: Present: normal inspection, full ROM. Absent: tenderness, meningismus, lymphadenopathy Respiratory exam: Present: normal lung sounds bilaterally. Absent: respiratory distress, wheezes, rales, rhonchi, stridor Cardiovascular Exam: Present: regular rate, normal rhythm, normal heart sounds. Absent: systolic murmur, diastolic murmur, rubs, gallop, clicks GI/Abdominal exam: Present: soft, normal bowel sounds. Absent: distended, tenderness, guarding, rebound, rigid Extremities exam: Present: normal inspection, full ROM, tenderness, normal capillary refill. Absent: pedal edema, joint swelling, calf tenderness Right Upper Arm exam: Present: tenderness, swelling, erythema. Absent: full ROM, laceration Elbow exam: Present: normal inspection. Absent: tenderness Forearm Wrist exam: Present: normal inspection. Absent: tenderness Hand Wrist exam: Present: normal inspection. Absent: tenderness Vascular: Present: normal capillary refill. Absent: vascular compromise Back exam: Present: full ROM. Absent: tenderness, CVA tenderness (R), CVA tenderness (L) Neurological exam: Present: alert, oriented X3, CN II-XII intact Psychiatric exam: Present: normal affect, normal mood Skin exam: Present: warm, dry, intact, normal color. Absent: rash Course Vital Signs 03/25/21 03/25/21 18:57 22:11 Temperature 98.3 F Pulse Rate 97 88 Respiratory 20 18 Rate Blood Pressure 125/75 130/81 O2 Sat by Pulse 96 96 Oximetry Medical Decision Making - Medical Decision Making WBC count is 7.2 patient has been afebrile. She is on antibiotics via PICC line at home. She states that she was at [facility] today for a CAT scan and was contacted by Dr. Walker today and told to return to the emergency room for admission for a new forming abscess. Patient states that she gave herself her antibiotics through the PICC line and is not due for her next dose until tomorrow. That is with Dr. Ogden regarding admission with consults to Dr. Walker and Dr. Martínez. - Lab Data Result diagrams: 03/25/21 20:09 03/25/21 20:09 Lab Results 03/25/21 03/25/21 Range/Units 20:09 20:09 WBC 7.2 (3.8-10.6) k/uL RBC 3.91 (3.80-5.40) m/uL Hgb 12.5 (11.4-16.0) gm/dL Hct 36.9 (34.0-46.0) % MCV 94.4 (80.0-100.0) fL MCH 31.9 (25.0-35.0) pg MCHC 33.8 (31.0-37.0) g/dL RDW 14.7 (11.5-15.5) % Plt Count 364 (150-450) k/uL MPV 6.9 Neutrophils % 47 % Lymphocytes % 36 % Monocytes % 9 % Eosinophils % 4 % Basophils % 1 % Neutrophils # 3.4 (1.3-7.7) k/uL Lymphocytes # 2.6 (1.0-4.8) k/uL Monocytes # 0.6 (0-1.0) k/uL Eosinophils # 0.3 (0-0.7) k/uL Basophils # 0.0 (0-0.2) k/uL Sodium 135 L (137-145) mmol/L Potassium 4.0 (3.5-5.1) mmol/L Chloride 99 (98-107) mmol/L Carbon Dioxide 27 (22-30) mmol/L Anion Gap 9 mmol/L BUN 10 (7-17) mg/dL Creatinine 0.45 L (0.52-1.04) mg/dL Est GFR (CKD-EPI)AfAm >90 (>60 ml/min/1.73 sqM) Est GFR (CKD-EPI)NonAf >90 (>60 ml/min/1.73 sqM) Glucose 96 (74-99) mg/dL Calcium 10.0 (8.4-10.2) mg/dL Total Bilirubin 0.1 L (0.2-1.3) mg/dL AST 24 (14-36) U/L ALT 6 (4-34) U/L Alkaline Phosphatase 142 H (38-126) U/L Total Protein 7.4 (6.3-8.2) g/dL Albumin 4.0 (3.5-5.0) g/dL Disposition Clinical Impression: Cellulitis, Abscess Disposition: ADMITTED IP TO THIS [facility] Condition: Good Decision Date: 03/25/21 Decision Time: 21:13
[2021-03-25 20:33] LABS: Basophils % (A) 1 %; Eosinophils # (A) 0.3 k/uL (0-0.7); Eosinophils % (A) 4 %; HCT 36.9 % (34.0-46.0); HGB 12.5 gm/dL (11.4-16.0); Lymphocytes # (A) 2.6 k/uL (1.0-4.8); Lymphocytes % (A) 36 %; MCH 31.9 pg (25.0-35.0); MCHC 33.8 g/dL (31.0-37.0); MCV 94.4 fL (80.0-100.0); Mean Platelet Volume 6.9; Monocytes # (A) 0.6 k/uL (0-1.0); Monocytes % (A) 9 %; Neutrophils # (A) 3.4 k/uL (1.3-7.7); Neutrophils % (A) 47 %; Platelet Count 364 k/uL (150-450); RBC 3.91 m/uL (3.80-5.40); RDW 14.7 % (11.5-15.5); WBC 7.2 k/uL (3.8-10.6)
[2021-03-25 20:42] LABS: ALT 6 U/L (4-34); AST 24 U/L (14-36); African American GFR (CKD) >90 (>60 ml/min/1.73 sqM); Alkaline Phosphatase 142 U/L (38-126); Anion Gap 9 mmol/L; Blood Urea Nitrogen 10 mg/dL (7-17); Carbon Dioxide 27 mmol/L (22-30); Chloride 99 mmol/L (98-107); Glucose 96 mg/dL (74-99); Non-African American GFR(CKD) >90 (>60 ml/min/1.73 sqM); Sodium 135 mmol/L (137-145); Total Bilirubin 0.1 mg/dL (0.2-1.3); Total Protein 7.4 g/dL (6.3-8.2)
[2021-03-25] MEDS ORDERED: NALOXONE 0.4 MG/ML 1 ML VIAL IV PRN (21:14)
[2021-03-26] MEDS: HYDROcodone/APAP 5-325MG 1 EACH TAB PO PRN ×4 (03:06→21:25)
[2021-03-26] MEDS ORDERED: hydrOXYzine pamoate 25 MG CAP PO STA (11:29)
[2021-03-26] MEDS ORDERED: buPROPion XL 150 MG TAB.ER.24H PO STA (11:30)
[2021-03-26] MEDS ORDERED: DULoxetine HCL 60 MG CAPSULE.DR PO STA (11:30)
[2021-03-26] MEDS ORDERED: BACLOFEN 10 MG TAB PO STA (11:31)
[2021-03-26] MEDS ORDERED: OXYBUTYNIN XL 5 MG TAB.ER.24 PO STA (11:32)
[2021-03-26] MEDS ORDERED: LISINOPRIL-HCTZ 10-12.5 MG 1 EACH TAB PO STA (11:32)
[2021-03-26] MEDS ORDERED: OXYBUTYNIN 15 MG TAB.ER.24 PO STA (11:36)
--- NOTE | 2021-03-26 14:36 | P.CNOR ---
History of Present Illness - HPI Consult date: 03/26/21 Consult reason: other History of present illness: Patient is seen at bedside this afternoon. She was admitted through the ED last evening 03/25/21 for concerns of re-accumulation of abcess and infection of her her right shoulder. She had a CT performed in [place] yesterday 03/25/21 where later she was told to present to the ED due to report showing possible abcess formation. She has been receiving IV antibiotics since her last admission where an I and D of the right shoulder was performed on 01/14/[address] Martínez and myself. She had been doing okay until recently where she developed increased pain and tenderness at the right shoulder. She denies recent injury or trauma. She denies fever or chills. She is status post ORIF of right proximal humerus fracture in October 2020. She has no new or other complaints including numbness, tingling chest pain or shortness of breath Review of Systems All systems: negative Constitutional: Denies chills, Denies fever Eyes: denies blurred vision, denies pain Ears, nose, mouth and throat: Denies headache, Denies sore throat Cardiovascular: Denies chest pain, Denies shortness of breath Respiratory: Denies cough Gastrointestinal: Denies abdominal pain, Denies diarrhea, Denies nausea, Denies vomiting Genitourinary: Denies dysuria, Denies hematuria Musculoskeletal: Denies myalgias Integumentary: Denies pruritus, Denies rash Neurological: Denies numbness, Denies weakness Psychiatric: Denies anxiety, Denies depression Endocrine: Denies fatigue, Denies weight change Past Medical History Past Medical History: COPD, Hypertension, Musculoskeletal Disorder, Osteoarthritis (OA) Additional Past Medical History / Comment(s): fx rt humerus, arm in sling, states mult bruises from fall History of Any Multi-Drug Resistant Organisms: MRSA Year Discovered:: 2019 MDRO Source:: rt thumb Past Surgical History: Hysterectomy, Joint Replacement Additional Past Surgical History / Comment(s): rt hip replacement, laminplasty C3-C-7 Past Anesthesia/Blood Transfusion Reactions: Motion Sickness, Postoperative Nausea & Vomiting (PONV) Additional Past Anesthesia/Blood Transfusion Reaction / Comm: no blod transfusion. Past Psychological History: ADD/ADHD, Anxiety, Depression Smoking Status: Former smoker Past Alcohol Use History: None Reported Past Drug Use History: Marijuana - Past Family History Sister(s) Family Medical History: Cancer Additional Family Medical History / Comment(s): BRAIN STEM CANCER Medications and Allergies Home Medications Medication Instructions Recorded Confirmed Type Lisinopril-Hctz 10-12.5 mg 1 tab PO QAM 07/15/15 03/25/21 History [Zestoretic 10-12.5] Oxybutynin Chloride [Ditropan XL] 15 mg PO BID 07/15/15 03/25/21 History Albuterol Inhaler [Ventolin Hfa 2 puff INHALATION RT-QID PRN 11/04/20 03/25/21 History Inhaler] DULoxetine HCL [Cymbalta] 120 mg PO DAILY 11/04/20 03/25/21 History Montelukast [Singulair] 10 mg PO HS 11/04/20 03/25/21 History OLANZapine [ZyPREXA] 10 mg PO HS 11/04/20 03/25/21 History Umeclidinium Brm/Vilanterol Tr 1 puff INHALATION RT-DAILY 11/04/20 03/25/21 History [Anoro Ellipta 62.5-25 Mcg INH] Baclofen [Lioresal] 10 mg PO BID 01/09/21 03/25/21 History Lisdexamfetamine Dimesylate 50 mg PO QAM 01/09/21 03/25/21 History [Vyvanse] hydrOXYzine pamoate [hydrOXYzine 25 mg PO DAILY 01/09/21 03/25/21 History PAMOATE] Dextroamphetamine/Amphetamine 10 mg PO DAILY PRN 03/25/21 03/25/21 History [Dextroamp-Amphetamin 10 mg Tab] HYDROcodone/APAP 10-325MG [[place] 1 tab PO Q6H PRN 03/25/21 03/25/21 History 10-325] buPROPion XL [Wellbutrin XL] 150 mg PO DAILY 03/25/21 03/25/21 History Allergies Allergy/AdvReac Type Severity Reaction Status Date / Time meprobamate [From Equagesic] Allergy Unknown Rash/Hives Verified 03/25/21 19:02 bone cement Allergy per Verified 03/25/21 19:02 allergy testing daptomycin Allergy Rash/Hives Verified 03/25/21 19:02 doxycycline Allergy tongue Verified 03/25/21 19:02 Swelling vancomycin Allergy Rash/Hives Verified 03/25/21 19:02 diazepam [From Valium] AdvReac "sends me Verified 03/25/21 19:02 into orbit" morphine AdvReac "confused" Verified 03/25/21 19:02 Physical Examination Inspection of the right shoulder and upper extremity shows a well healed surgical wound. There is no deformity. There is mild erythema about the right shoulder anteriorly. It is not overly hot to touch. There is tenderness and what appears to be mild fluid collection at the anterior proximal humerus. There is pain with ROM in all nagel however she states that she has had continued pain with ROM since her fracture. No pain with ROM at the elbow. Neurovascular status is intact with motor and sensation throughout the right upper extremity. 2+ radial pulse and less than 2 sec cap refill present Results - Labs Labs: Abnormal Lab Results - Last 24 Hours (Table) 03/25/21 Range/Units 20:09 Sodium 135 L (137-145) mmol/L Creatinine 0.45 L (0.52-1.04) mg/dL Total Bilirubin 0.1 L (0.2-1.3) mg/dL Alkaline Phosphatase 142 H (38-126) U/L H & H 03/25/21 Range/Units 20:09 Hgb 12.5 (11.4-16.0) gm/dL Hct 36.9 (34.0-46.0) % Result Diagrams: 03/25/21 20:09 03/25/21 20:09 Assessment and Plan (1) Abscess Narrative/Plan: The patient has been reviewed with Dr. Martínez. Plan will be to proceed with surgical I and D of the right shoulder tomorrow morning. Procedure and consent have been ordered. She is to be NPO after midnight. Continue medical management, pain management and recommendations per ID. Will continue routine orthopedic protocol post operatively including pain management, wound care, antibiotics, medical management and DVT prophylaxis. Current Visit: Yes Status: Acute Priority: Medium Code(s): L02.91 - CUTANEOUS ABSCESS, UNSPECIFIED SNOMED Code(s): 859170255 (2) Cellulitis of arm, right Current Visit: No Status: Acute Priority: Medium Code(s): L03.113 - CELLULITIS OF RIGHT UPPER LIMB SNOMED Code(s): 765756409 Time with Patient: Less than 30
[2021-03-26] MEDS ORDERED: HYDROcodone/APAP 10-325MG 1 EACH TAB PO PRN (15:49)
[2021-03-26] MEDS: PANTOPRAZOLE 40 MG/10 ML VIAL IVP SCH (16:25)
[2021-03-26] MEDS: ALBUTEROL NEBULIZED 2.5 MG/3 ML INHALATION PRN (17:01)
[2021-03-26] MEDS: MONTELUKAST 10 MG TAB PO SCH (21:26)
[2021-03-26] MEDS: OXYBUTYNIN 15 MG TAB.ER.24 PO SCH (21:26)
[2021-03-26] MEDS: BACLOFEN 10 MG TAB PO SCH (21:26)
[2021-03-26] MEDS: OLANZapine 10 MG TAB PO SCH (21:26)
--- NOTE | 2021-03-26 23:42 | P.HPIM ---
History of Present Illness H&P Date: 03/26/21 Chief Complaint: abscess Aline Bolaños is a 65 yo F with PMH of cellulitis and abscess of the RUE for which she had been receiving IV antibiotics who presented to the ED at the request of her physician. She had been doing well since her discharge after I+D and washout with Ortho, but over the past few days developed increasing pain and swelling in the RUE. She denies any specific injury or trigger. She underwent an outpatient CT scan which was concerning for recurrent abscess. On presentation vitals stable, WBC 7.2k, labs otherwise unremarkable. She denies fevers or chills but endorses arm pain. Review of Systems All systems: negative Constitutional: Reports malaise, Denies chills, Denies fever Eyes: denies blurred vision, denies pain Ears, nose, mouth and throat: Denies headache, Denies sore throat Cardiovascular: Denies chest pain, Denies shortness of breath Respiratory: Denies cough Gastrointestinal: Denies abdominal pain, Denies diarrhea, Denies nausea, Denies vomiting Genitourinary: Denies dysuria, Denies hematuria Musculoskeletal: Reports as per HPI, Reports muscle weakness, Reports myalgias Integumentary: Denies pruritus, Denies rash Neurological: Denies numbness, Denies weakness Psychiatric: Denies anxiety, Denies depression Endocrine: Denies fatigue, Denies weight change Past Medical History Past Medical History: COPD, Hypertension, Musculoskeletal Disorder, Os teoarthritis (OA) Additional Past Medical History / Comment(s): fx rt humerus, arm in sling, states mult bruises from fall History of Any Multi-Drug Resistant Organisms: MRSA Date of last positivie culture/infection: 2019 MDRO Source:: rt thumb Past Surgical History: Hysterectomy, Joint Replacement Additional Past Surgical History / Comment(s): rt hip replacement, laminplasty C3-C-7 Past Anesthesia/Blood Transfusion Reactions: Motion Sickness, Postoperative Nausea & Vomiting (PONV) Additional Past Anesthesia/Blood Transfusion Reaction / Comment(s): no blod transfusion. Past Psychological History: ADD/ADHD, Anxiety, Depression Smoking Status: Former smoker Past Alcohol Use History: None Reported Additional Past Alcohol Use History / Comment(s): quit smoking 08/2020, STARTED SMOKING 1971, SMOKEd 1/2 PPD. Past Drug Use History: Marijuana Additional Drug Use History / Comment(s): STATES MARIJUANA CARD instructed to hold 24 hrs prior - Past Family History Sister(s) Family Medical History: Cancer Additional Family Medical History / Comment(s): BRAIN STEM CANCER Medications and Allergies Home Medications Medication Instructions Recorded Confirmed Type Lisinopril-Hctz 10-12.5 mg 1 tab PO QAM 07/15/15 03/25/21 History [Zestoretic 10-12.5] Oxybutynin Chloride [Ditropan XL] 15 mg PO BID 07/15/15 03/25/21 History Albuterol Inhaler [Ventolin Hfa 2 puff INHALATION RT-QID PRN 11/04/20 03/25/21 History Inhaler] DULoxetine HCL [Cymbalta] 120 mg PO DAILY 11/04/20 03/25/21 History Montelukast [Singulair] 10 mg PO HS 11/04/20 03/25/21 History OLANZapine [ZyPREXA] 10 mg PO HS 11/04/20 03/25/21 History Umeclidinium Brm/Vilanterol Tr 1 puff INHALATION RT-DAILY 11/04/20 03/25/21 History [Anoro Ellipta 62.5-25 Mcg INH] Baclofen [Lioresal] 10 mg PO BID 01/09/21 03/25/21 History Lisdexamfetamine Dimesylate 50 mg PO QAM 01/09/21 03/25/21 History [Vyvanse] hydrOXYzine pamoate [hydrOXYzine 25 mg PO DAILY 01/09/21 03/25/21 History PAMOATE] Dextroamphetamine/Amphetamine 10 mg PO DAILY PRN 03/25/21 03/25/21 History [Dextroamp-Amphetamin 10 mg Tab] HYDROcodone/APAP 10-325MG [[place] 1 tab PO Q6H PRN 03/25/21 03/25/21 History 10-325] buPROPion XL [Wellbutrin XL] 150 mg PO DAILY 03/25/21 03/25/21 History Allergies Allergy/AdvReac Type Severity Reaction Status Date / Time meprobamate [From Equagesic] Allergy Unknown Rash/Hives Verified 03/25/21 19:02 bone cement Allergy per Verified 03/25/21 19:02 allergy testing daptomycin Allergy Rash/Hives Verified 03/25/21 19:02 doxycycline Allergy tongue Verified 03/25/21 19:02 Swelling vancomycin Allergy Rash/Hives Verified 03/25/21 19:02 diazepam [From Valium] AdvReac "sends me Verified 03/25/21 19:02 into orbit" morphine AdvReac "confused" Verified 03/25/21 19:02 Physical Exam Vitals: Vital Signs Temp Pulse Pulse Resp BP BP Pulse Ox 03/26/21 20:00 97.8 F 90 17 154/89 96 03/26/21 17:16 80 03/26/21 17:02 84 03/26/21 14:21 98.4 F 87 17 152/85 97 03/26/21 11:45 98 F 78 18 160/83 96 03/26/21 08:45 98.6 F 84 16 138/79 96 03/26/21 06:00 67 18 114/62 95 03/26/21 02:00 82 16 140/66 96 Intake and Output 03/26/21 03/26/21 03/27/21 14:59 22:59 06:59 Other: Voiding Method Toilet # Voids 1 1 Weight 69.853 kg General: well nourished, well developed, NAD. Vitals reviewed Eyes: PERRL, EOMI, conjunctiva normal HENT: normocephalic, mucus membranes moist Neck: supple, no JVD Lungs: normal respiratory effort, no wheezes or rales CV: Regular rate and rhythm, no murmur. Peripheral pulses 2+ Abdomen: soft, nondistended, no organomegaly MSK: RUE tender to palpation, 1+ edema, Skin: warm and dry. Neuro: A&Ox3, normal mood and affect Results CBC & Chem 7: 03/25/21 20:09 03/25/21 20:09 Labs: Microbiology - Last 24 Hours (Table) 03/25/21 20:09 Blood Culture - Preliminary Blood No Growth after 24 hours 03/25/21 20:09 Blood Culture - Preliminary Blood No Growth after 24 hours Thrombosis Risk Factor Assmnt - Choose All That Apply Each Risk Factor Represents 2 Points: Age 61-74 years Thrombosis Risk Factor Assessment Total Risk Factor Score: 2 Thrombosis Risk Factor Assessment Level: Low Risk Assessment and Plan Plan: 1. Cellulitis and abscess of RUE. Admit and consult to ID and Ortho. Continue with cefazolin. Pain control 2. HTN. Continue lisinopril, hctz 3. Major depression. Continue with wellbutrin, zyprexa 4. COPD. Continue albuterol nebs
--- NOTE | 2021-03-26 23:59 | P.CONS ---
History of Present Illness - Reason for Consult Consult date: 03/26/21 right shoulder abscess Requesting physician: Juan Pablo Ogden - Chief Complaint right arm and shoulder pain x days , abnormal CT - History of Present Illness History of present illness : Patient is 65-year female who was recently admitted at this facility in this patient who did have a right shoulder swelling and redness after the patient did have a right shoulder/humerus fracture repair patient did have a purulent drainage patient subsequently did have drainage of the abscess and removal of the hardware cultures were positive for group C strep patient did have multiple antibiotic allergies patient did get a PICC line and has been started on IV cefazolin 2 g every 8 hour with the patient initially tolerated however on a follow-up visit the patient was noticed to have increasing swelling and redness to the right upper extremity for the patient did have a repeat CT done which was read as large joint effusion suggestive of purulenet material, discrete enhancing abscess in the axillary recess and progression to the subscapularis muscle, hence the patient was called and was advised to go to the ER for admission drainage and IV antibiotic therapy, patient denies having any fever however did have some chills and has been complaining of more pain to the right shoulder as well as to the axillary area that has been getting worse for the last few days his family pain to be sharp and dull aching about 6-7 out of 10 has some relief with the pain medication patient on presentation to the hospital was afebrile did have a normal white count blood culture has been obtained which are currently pending orthopedic has seen the patient and plan for I&D tomorrow infectious disease was consulted for management of antibiotic therapy Review of system: CONSTITUTIONAL: Positive for weakness along with chills but denies high-grade fever. EYES: No complaint. ENT: No complaint. RESPIRATORY: No complaint. CARDIOVASCULAR: No complaint. GENITOURINARY: No complaint. GASTROINTESTINAL: No complaint. MUSCULOSKELETAL: As per history of present illness. INTEGUMENTARY: No complaint. PSYCHOLOGIC: No complaint. ENDOCRINE: No complaint. NEUROLOGIC: No complaint. Past medical history : Reviewed, documented below Past surgical history : Reviewed, documented below Social history: Reviewed, documented below Medications: Reviewed, as documented below EXAMINATION: Vital sigans= Reviewed and documented below GENERAL DESCRIPTION: Middle-aged female lying in bed, no distress. No tachypnea or accessory muscle of respiration use. HEENT: Shows Pallor , no scleral icterus. Oral mucous membrane is dry. NECK: Trachea central, no thyromegaly. LUNGS: Unlabored breathing. Clear to auscultation anteriorly. No wheeze or crackle. HEART: S1, S2, regular rate and rhythm. ABDOMEN: Soft, no tenderness , guarding or rigidity EXTREMITIES: Right upper arm did have a swelling redness and tenderness slight warm to touch. SKIN: No rash, no masses palpable. NEUROLOGICAL: The patient is awake, alert, oriented x3, mood and affect normal. LABS AND RADIOLOGY: Reviewed results see below Assessment : Patient with a recent history of right shoulder abscess in this patient who is status post removal of the hardware that was used for the right humerus fracture and drainage of the abscess culture positive for group C strep in this patient who do have multiple antibiotic allergies and has been treated with the cefazolin for almost 2 months now however the patient did not have resolution of her infection rather some progression and evidence of multiple abscess 2-patient with multiple antibiotic allergies that would limit the number of antibiotics safe to use Plan: 1-we will wait for surgical drainage and deep culture 2-cefazolin 2 g every 8 hour 3-gentle IV fluid We will follow on clinical condition and cultures to further adjust medication if needed Thank you for this consultation we will follow the patient along with you Past Medical History Past Medical History: COPD, Hypertension, Musculoskeletal Disorder, Ost eoarthritis (OA) Additional Past Medical History / Comment(s): fx rt humerus, arm in sling, states mult bruises from fall History of Any Multi-Drug Resistant Organisms: MRSA Year Discovered:: 2019 MDRO Source:: rt thumb Past Surgical History: Hysterectomy, Joint Replacement Additional Past Surgical History / Comment(s): rt hip replacement, laminplasty C3-C-7 Past Anesthesia/Blood Transfusion Reactions: Motion Sickness, Postoperative Nausea & Vomiting (PONV) Additional Past Anesthesia/Blood Transfusion Reaction / Comm: no blod transfusion. Past Psychological History: ADD/ADHD, Anxiety, Depression Smoking Status: Former smoker Past Alcohol Use History: None Reported Additional Past Alcohol Use History / Comment(s): quit smoking 08/2020, STARTED SMOKING 1971, SMOKEd 1/2 PPD. Past Drug Use History: Marijuana Additional Drug Use History / Comment(s): STATES MARIJUANA CARD instructed to hold 24 hrs prior - Past Family History Sister(s) Family Medical History: Cancer Additional Family Medical History / Comment(s): BRAIN STEM CANCER Medications and Allergies Home Medications Medication Instructions Recorded Confirmed Type Lisinopril-Hctz 10-12.5 mg 1 tab PO QAM 07/15/15 03/25/21 History [Zestoretic 10-12.5] Oxybutynin Chloride [Ditropan XL] 15 mg PO BID 07/15/15 03/25/21 History Albuterol Inhaler [Ventolin Hfa 2 puff INHALATION RT-QID PRN 11/04/20 03/25/21 History Inhaler] DULoxetine HCL [Cymbalta] 120 mg PO DAILY 11/04/20 03/25/21 History Montelukast [Singulair] 10 mg PO HS 11/04/20 03/25/21 History OLANZapine [ZyPREXA] 10 mg PO HS 11/04/20 03/25/21 History Umeclidinium Brm/Vilanterol Tr 1 puff INHALATION RT-DAILY 11/04/20 03/25/21 History [Anoro Ellipta 62.5-25 Mcg INH] Baclofen [Lioresal] 10 mg PO BID 01/09/21 03/25/21 History Lisdexamfetamine Dimesylate 50 mg PO QAM 01/09/21 03/25/21 History [Vyvanse] hydrOXYzine pamoate [hydrOXYzine 25 mg PO DAILY 01/09/21 03/25/21 History PAMOATE] Dextroamphetamine/Amphetamine 10 mg PO DAILY PRN 03/25/21 03/25/21 History [Dextroamp-Amphetamin 10 mg Tab] HYDROcodone/APAP 10-325MG [[place] 1 tab PO Q6H PRN 03/25/21 03/25/21 History 10-325] buPROPion XL [Wellbutrin XL] 150 mg PO DAILY 03/25/21 03/25/21 History Allergies Allergy/AdvReac Type Severity Reaction Status Date / Time meprobamate [From Equagesic] Allergy Unknown Rash/Hives Verified 03/25/21 19:02 bone cement Allergy per Verified 03/25/21 19:02 allergy testing daptomycin Allergy Rash/Hives Verified 03/25/21 19:02 doxycycline Allergy tongue Verified 03/25/21 19:02 Swelling vancomycin Allergy Rash/Hives Verified 03/25/21 19:02 diazepam [From Valium] AdvReac "sends me Verified 03/25/21 19:02 into orbit" morphine AdvReac "confused" Verified 03/25/21 19:02 Physical Exam Vitals: Vital Signs Temp Pulse Pulse Resp BP BP Pulse Ox 03/26/21 17:02 84 03/26/21 14:21 98.4 F 87 17 152/85 97 03/26/21 11:45 98 F 78 18 160/83 96 03/26/21 08:45 98.6 F 84 16 138/79 96 03/26/21 06:00 67 18 114/62 95 03/26/21 02:00 82 16 140/66 96 03/25/21 22:11 88 18 130/81 96 03/25/21 18:57 98.3 F 97 20 125/75 96 Intake and Output 03/26/21 03/26/21 03/26/21 06:59 14:59 22:59 Other: # Voids 1 Weight 69.853 kg Results CBC & Chem 7: 03/25/21 20:09 03/25/21 20:09 Labs: Abnormal Lab Results - Last 24 Hours (Table) 03/25/21 Range/Units 20:09 Sodium 135 L (137-145) mmol/L Creatinine 0.45 L (0.52-1.04) mg/dL Total Bilirubin 0.1 L (0.2-1.3) mg/dL Alkaline Phosphatase 142 H (38-126) U/L
[2021-03-27] MEDS: HYDROcodone/APAP 5-325MG 1 EACH TAB PO PRN (05:10)
[2021-03-27] MEDS: ALBUTEROL NEBULIZED 2.5 MG/3 ML INHALATION PRN (05:14)
[2021-03-27] MEDS ORDERED: ONDANSETRON 4 MG/2 ML VIAL ONE (06:41)
[2021-03-27] MEDS ORDERED: IV FLUID CONTINUATION 850 ML IV ONE (06:49)
[2021-03-27] MEDS ORDERED: DEXAMETHASONE SOD PHOSPHATE 4 MG/ML 1 ML VIAL IV ONE (06:57)
[2021-03-27] MEDS ORDERED: ONDANSETRON 4 MG/2 ML VIAL IVP ONE (07:01)
[2021-03-27] MEDS ORDERED: NEOSTIGMINE 1 MG/ML 10 ML VIAL ONE (07:40)
[2021-03-27] MEDS ORDERED: PROPOFOL 10 MG/ML 20 ML VIAL IV ONE (07:40)
[2021-03-27] MEDS ORDERED: LIDOCAINE 1% INJ 10MG/ML (20 ML MDV) ONE (07:40)
[2021-03-27] MEDS ORDERED: MIDAZOLAM 2 MG/2 ML VIAL ONE (07:40)
[2021-03-27] MEDS ORDERED: GLYCOPYRROLATE 0.2 MG/ML 2 ML VIAL ONE (07:40)
[2021-03-27] MEDS ORDERED: SUCCINYLCHOLINE CHLORIDE 100 MG/5 ML SYR IV ONE (07:40)
[2021-03-27] MEDS ORDERED: ROCURONIUM 10 MG/ML (5 ML VIAL) IV ONE (07:40)
[2021-03-27] MEDS ORDERED: fentaNYL (PF) 50 MCG/ML 2 ML AMP ONE (07:40)
[2021-03-27] MEDS: FORMOTEROL FUMARATE 20 MCG/2 ML NEBU INHALATION SCH ×2 (07:45→20:08)
[2021-03-27] MEDS: IPRATROPIUM 0.5 MG/2.5 ML NEBU INHALATION SCH ×4 (07:45→20:08)
[2021-03-27] MEDS ORDERED: SODIUM CHLORIDE 0.9% 100 ML with ceFAZolin 2,000 MG IV ONE ×2 (07:59)
[2021-03-27] MEDS ORDERED: ceFAZolin 3,000 MG in SODIUM CHLORIDE 0.9% IRRIGATIO 3,000 ML IRRIGATION ONE (08:12)
[2021-03-27] MEDS ORDERED: PROCHLORPERAZINE SUPPOSITORY 25 MG SUPP RECTAL PRN (08:45)
[2021-03-27] MEDS ORDERED: diphenhydrAMINE 25 MG CAP PO PRN (08:45)
[2021-03-27] MEDS ORDERED: ONDANSETRON 4 MG/2 ML VIAL IVP PRN (08:45)
[2021-03-27] MEDS ORDERED: SENNOSIDES-DOCUSATE SODIUM 1 EACH TAB PO PRN (08:45)
[2021-03-27] MEDS ORDERED: HYDROmorphone 0.2 MG/1 ML SYRINGE IVP PRN (08:45)
[2021-03-27] MEDS ORDERED: HYDROmorphone 0.5 MG/0.5 ML SYRINGE IVP PRN (08:45)
[2021-03-27] MEDS ORDERED: HYDROmorphone 1 MG/ML 1 ML SYRINGE ONE (08:50)
[2021-03-27] MEDS ORDERED: HYDROmorphone 1 MG/ML 1 ML SYRINGE IVP ONE (08:51)
[2021-03-27] MEDS ORDERED: HYDROcodone/APAP 10-325MG 1 EACH TAB PO PRN (08:52)
[2021-03-27] MEDS: NON FORMULARY DRUG (Lisdexamfetamine Dimesylate [Vyvanse] 50 MG Capsule) PO SCH (10:00)
[2021-03-27] MEDS: PANTOPRAZOLE 40 MG/10 ML VIAL IVP SCH (10:06)
[2021-03-27] MEDS: buPROPion XL 150 MG TAB.ER.24H PO SCH (10:06)
[2021-03-27] MEDS: BACLOFEN 10 MG TAB PO SCH ×2 (10:06→21:37)
[2021-03-27] MEDS: DULoxetine HCL 60 MG CAPSULE.DR PO SCH (10:07)
[2021-03-27] MEDS: OXYBUTYNIN 15 MG TAB.ER.24 PO SCH ×2 (10:07→20:55)
[2021-03-27] MEDS: LISINOPRIL-HCTZ 10-12.5 MG 1 EACH TAB PO SCH (10:07)
[2021-03-27 10:56] LABS: Basophils % (A) 1 %; Eosinophils # (A) 0.1 k/uL (0-0.7); Eosinophils % (A) 1 %; HCT 37.7 % (34.0-46.0); Lymphocytes # (A) 0.8 k/uL (1.0-4.8); Lymphocytes % (A) 9 %; MCH 30.8 pg (25.0-35.0); MCHC 31.9 g/dL (31.0-37.0); MCV 96.5 fL (80.0-100.0); Monocytes # (A) 0.2 k/uL (0-1.0); Monocytes % (A) 2 %; Neutrophils # (A) 7.8 k/uL (1.3-7.7); Neutrophils % (A) 86 %; Platelet Count 415 k/uL (150-450); RBC 3.91 m/uL (3.80-5.40); RDW 15.4 % (11.5-15.5); WBC 9.1 k/uL (3.8-10.6)
[2021-03-27 11:12] LABS: African American GFR (CKD) >90 (>60 ml/min/1.73 sqM); Anion Gap 9 mmol/L; Blood Urea Nitrogen 9 mg/dL (7-17); Calcium 9.6 mg/dL (8.4-10.2); Carbon Dioxide 24 mmol/L (22-30); Chloride 105 mmol/L (98-107); Glucose 132 mg/dL (74-99); Non-African American GFR(CKD) >90 (>60 ml/min/1.73 sqM); Potassium 4.6 mmol/L (3.5-5.1); Sodium 138 mmol/L (137-145)
[2021-03-27] MEDS: LACTATED RINGERS 1,000 ML IV SCH ×2 (12:26→20:23)
[2021-03-27] MEDS: HYDROmorphone 1 MG/ML 1 ML SYRINGE IVP PRN ×3 (12:30→21:02)
[2021-03-27] MEDS: HYDROcodone/APAP 10-325MG 1 EACH TAB PO PRN ×2 (14:16→23:42)
--- NOTE | 2021-03-27 14:40 | OP ---
OPERATIVE REPORT DATE OF PROCEDURE: 03/27/2021. SURGEON: Sekou Martínez MD. AIRPORT OPERATIONS SPECIALIST: Farshad Hernandez PA-C PREOPERATIVE DIAGNOSIS: Right shoulder possible deep abscess. POSTOPERATIVE DIAGNOSIS: Right shoulder deep effusion, not infectious. PROCEDURE: Incision and drainage of deep fluid collection, right shoulder. ANESTHESIA: General endotracheal. ESTIMATED BLOOD LOSS: 20 mL. TOURNIQUET: None. DRAINS: None. COMPLICATIONS: None apparent. DISPOSITION: Post-Anesthesia Care Unit. INDICATIONS: Aline is a 65-year-old patient well known to me. She in the past underwent open reduction, internal fixation of a comminuted displaced proximal humerus fracture. She then subsequently developed a postoperative deep infection. She underwent irrigation and debridement with removal of the hardware of the proximal humerus by myself. She was then given a PICC line and she has been treated with IV antibiotics since then. She had been improving quite well. 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 She recently had complaints of increasing shoulder pain. A CT scan was ordered by the primary care physician. There was a suggestion of a small deep fluid collection which measured approximately 1.6 x 1.4 cm and some potential fluid around the subscapularis, which would be suggestive of some sort of continuing deep infection. She was then admitted to [facility]. Infectious Disease Service saw her and recommended incision and drainage of the fluid collection. Given her history, it seemed reasonable to proceed with incision and drainage of the fluid collection. Her white count, however, was normal. She was afebrile and she had no significant erythema or fluctuance about the shoulder. I had a discussion with Aline with regard to treatment plan. I do think it is reasonable to proceed with incision and drainage of the shoulder, given the CT findings. The risks of the procedure were discussed with her in detail. These risks include but are not limited to risk of infection, nerve damage, bleeding, pain, and a small risk of deep vein thrombosis which could lead to fatal pulmonary embolism. All of her questions with regard to the risks were answered to her satisfaction. Appropriate informed consent was obtained. DESCRIPTION OF THE PROCEDURE: The patient was identified in preoperative holding area. The surgical site was marked by both the patient and myself. She was then transferred to the operative suite. She was placed supine on the operating room table. General anesthetic was then administered and dosed per the anesthesia department without apparent complication. She was then placed in the modified beach chair position, well padded in preparation for surgery. The patient's right upper extremity was then prepped and draped in the usual sterile fashion. Standard surgical pause was undertaken to ensure that we were operating on the correct site. All staff in the room were in agreement and we proceeded. The previous deltopectoral incision was then reopened utilizing a 10-blade scalpel. Dissection was carried down sharply to the deltoid fascia. The deltopectoral interval was identified. It was quite scarred. Both the pectoralis major and deltoid muscles were normal in appearance. No evidence of any necrotic tissue at all. There was no subcutaneous purulence at all. I then opened the deltopectoral interval. There was an abundance of scar tissue. Once I was through the deltopectoral interval, expression of clear normal joint fluid. There was no evidence of any purulent nature to this at all. I did take a deep culture. The subscapularis appeared relatively normal in nature. With thorough investigation, I did not encounter any deep purulent pockets of infection. I then ran 3 L of sterile saline solution with antibiotic added via pulse lavage deep around the shoulder. I then proceeded with closure. We did close the skin with 2-0 nylon interrupted mattress sutures. Sterile dressing was applied. The patient's right upper extremity was placed in a standard sling. All sponge and needle counts were deemed correct prior to closure. The patient tolerated the procedure without apparent complication. She was transferred to the recovery room in stable condition. We will continue to monitor Aline postoperatively. Again, a deep culture was taken. We did not encounter any purulent pockets of fluid, however, throughout the operation. MMODL / IJN: [id number] /
--- NOTE | 2021-03-27 16:41 | P.PN ---
Subjective Progress Note Date: 03/27/21 Aline Bolaños is a 65 yo F with PMH of cellulitis and abscess of the RUE for which she had been receiving IV antibiotics who presented to the ED at the request of her physician. She had been doing well since her discharge after I+D and washout with Ortho, but over the past few days developed increasing pain and swelling in the RUE. She denies any specific injury or trigger. She underwent an outpatient CT scan which was concerning for recurrent abscess. On presentation vitals stable, WBC 7.2k, labs otherwise unremarkable. She denies fevers or chills but endorses arm pain. 03/27/2021 just returning from I&D. Tolerated procedure well. Wearing sling, positive pain. Labs pending. Maintained on gentle IV fluid hydration and ceftezolin. Afebrile. Denies chest pain, palpitations or shortness of breath. Objective - Vital Signs Vital signs: Vital Signs Temp 97.9 F 03/27/21 08:43 Pulse 94 03/27/21 09:15 Resp 16 03/27/21 09:15 BP 155/87 03/27/21 09:15 Pulse Ox 95 03/27/21 09:15 Intake & Output 03/26/21 03/27/21 03/27/21 18:59 06:59 18:59 Intake Total 150 501 Output Total 20 Balance 150 481 Weight 69.853 kg Intake: IV 150 501 Output: Estimated Blood Loss 20 Other: Voiding Method Toilet # Voids 1 1 - Exam General: Sitting up at bedside, NAD. Vitals reviewed Eyes: PERRL, EOMI, conjunctiva normal HENT: normocephalic, mucus membranes moist Neck: supple, no JVD, wearing sling over affected extremity Lungs: normal respiratory effort, fine expiratory wheeze CV: Regular rate and rhythm, no murmur. Peripheral pulses 2+ Abdomen: soft, nondistended, no organomegaly MSK: RUE tender to palpation, 1+ edema, Skin: warm and dry. Neuro: A&Ox3, normal mood and affect - Labs CBC & Chem 7: 03/27/21 10:02 03/27/21 10:02 Labs: Microbiology - Last 24 Hours (Table) 03/25/21 20:09 Blood Culture - Preliminary Blood No Growth after 24 hours 03/25/21 20:09 Blood Culture - Preliminary Blood No Growth after 24 hours Assessment and Plan Assessment: Cellulitis and abscess of right upper extremity, status post I&D. Cultures pending Hypertension Major depression COPD Plan: Continue on current medication regime ,monitoring and symptomatic treatment. Labs pending. Maintain antibiotics as per ID. Deep Cultures pending. Gentle IV fluid hydration. Aggressive pulmonary toileting with incentive spirometer ordered. The impression and plan of care has been dictated as directed. : I performed a history and examination of this patient, discussed the same with the dictator. I agree with the dictator's note ,documented as a scribe. Any additional findings or plans will be noted.
--- NOTE | 2021-03-27 17:41 | PN ---
PROGRESS NOTE DATE OF SERVICE: 03/27/2021 REASON FOR FOLLOWUP: Right shoulder abscess. INTERVAL HISTORY: The patient was taken to the OR. The patient is status post right shoulder effusion status post I and D and deep cultures. The patient tolerated the procedure. Pain is currently controlled. No chest pain, shortness of breath or cough. No abdominal pain or diarrhea. PHYSICAL EXAMINATION: Blood pressure 135/58 with a pulse of 108. Temperature 98.5. She is 94% on room air. General description is a middle-aged female lying in bed in no distress. Respiratory system: Unlabored breathing, clear to auscultation anteriorly. Heart S1, S2. Regular rate and rhythm. Abdomen soft, no tenderness. LABS: Hemoglobin is 12 with white count 9.1. BUN of 9, creatinine 0.42. DIAGNOSTIC IMPRESSION AND PLAN: Patient with right shoulder abscess in this patient did have recurrent swelling and redness, concern for persistent infection or reinfection. The patient is status post I and D on the basis of worsening followup CT. However operative report is possible not infectious. Repeat culture negative. We will be able to discontinue antibiotic. Continue cefazolin at this point. Monitor clinical course closely. MMODL / IJN: [id number] /
[2021-03-27] MEDS: MONTELUKAST 10 MG TAB PO SCH (20:55)
[2021-03-27] MEDS: OLANZapine 10 MG TAB PO SCH (20:55)
[2021-03-28] MEDS: HYDROmorphone 1 MG/ML 1 ML SYRINGE IVP PRN ×5 (03:16→20:22)
[2021-03-28] MEDS: LACTATED RINGERS 1,000 ML IV SCH ×2 (05:06→11:38)
[2021-03-28] MEDS: BACLOFEN 10 MG TAB PO SCH ×2 (06:51→20:21)
[2021-03-28] MEDS: PANTOPRAZOLE 40 MG TABLET PO SCH (06:52)
[2021-03-28] MEDS: buPROPion XL 150 MG TAB.ER.24H PO SCH (06:52)
[2021-03-28] MEDS: DULoxetine HCL 60 MG CAPSULE.DR PO SCH (06:52)
[2021-03-28] MEDS: LISINOPRIL-HCTZ 10-12.5 MG 1 EACH TAB PO SCH (06:52)
[2021-03-28] MEDS: OXYBUTYNIN 15 MG TAB.ER.24 PO SCH ×2 (06:52→20:21)
[2021-03-28] MEDS: NON FORMULARY DRUG (Lisdexamfetamine Dimesylate [Vyvanse] 50 MG Capsule) PO SCH (06:53)
[2021-03-28] MEDS: FORMOTEROL FUMARATE 20 MCG/2 ML NEBU INHALATION SCH ×2 (07:49→20:59)
[2021-03-28] MEDS: IPRATROPIUM 0.5 MG/2.5 ML NEBU INHALATION SCH ×4 (07:49→20:55)
[2021-03-28 09:16] LABS: Basophils # (A) 0.03 X 10*3/uL (0.00-0.10); Basophils % (A) 0.5 %; Eosinophils # (A) 0.08 X 10*3/uL (0.04-0.35); Eosinophils % (A) 1.2 %; HCT 30.3 % (37.2-46.3); HGB 9.7 g/dL (12.0-15.0); Lymphocytes # (A) 2.19 X 10*3/uL (0.90-5.00); MCH 30.4 pg (27.0-32.0); Mean Platelet Volume 9.1 fL (9.5-12.2); Monocytes # (A) 0.99 X 10*3/uL (0.20-1.00); Monocytes % (A) 15.3 %; Neutrophils # (A) 3.13 X 10*3/uL (1.80-7.70); Neutrophils % (A) 48.5 %; Platelet Count 271 X 10*3/uL (140-440); RBC 3.19 X 10*6/uL (4.10-5.20); RDW 14.8 % (11.5-14.5); WBC 6.45 X 10*3/uL (4.50-10.00)
--- NOTE | 2021-03-28 09:37 | P.PN ---
Subjective Progress Note Date: 03/28/21 Principal diagnosis: S/P I and D right shoulder Patient is seen at bedside this morning. She is postop day #1 from I and D right shoulder. She has pain at the surgical site as expected but denies any new complaints. She denies numbness, tingling or calf pain. Review of systems is negative for fever, chills, chest pain, shortness of breath or other Objective - Vital Signs Vital signs: Vital Signs Temp 98.1 F 03/28/21 07:00 Pulse 98 03/28/21 08:00 Resp 18 03/28/21 08:00 BP 121/73 03/28/21 07:00 Pulse Ox 94 L 03/28/21 07:00 Intake & Output 03/27/21 03/28/21 03/28/21 18:59 06:59 18:59 Intake Total 2547 Output Total 20 Balance 2527 Intake: IV 501 Intake, IV Titration 850 Amount Lactated Ringers 1,000 ml 800 @ 100 mls/hr IV .Q10H [facility] Rx#:[id number] ceFAZolin 2 gm In Sodium 50 Chloride 0.9% 50 ml @ 100 mls/hr IVPB Q8HR [facility] Rx# :[id number] Oral 1196 Output: Estimated Blood Loss 20 Other: Voiding Method Toilet Toilet # Voids 2 - Exam Inspection reveals a benign surgical wound. There is no active bleeding or drainage. Neurovascular status is intact throughout the upper extremity with motor and sensation fully intact. Calves are soft and nontender. 2+ radial artery pulse and less than 2 second cap refill is present. - Constitutional General appearance: Present: no acute distress - Labs CBC & Chem 7: 03/28/21 05:34 03/27/21 10:02 Labs: Abnormal Lab Results - Last 24 Hours (Table) 03/27/21 03/27/21 03/28/21 Range/Units 10:02 10:02 05:34 RBC 3.19 L (4.10-5.20) X 10*6/uL Hgb 9.7 L (12.0-15.0) g/dL Hct 30.3 L (37.2-46.3) % RDW 14.8 H (11.5-14.5) % MPV 9.1 L (9.5-12.2) fL Neutrophils # 7.8 H (1.3-7.7) k/uL Lymphocytes # 0.8 L (1.0-4.8) k/uL Creatinine 0.42 L (0.52-1.04) mg/dL Glucose 132 H (74-99) mg/dL Microbiology - Last 24 Hours (Table) 03/27/21 08:30 Gram Stain - Preliminary Shoulder - Right Wound Culture - Preliminary 03/25/21 20:09 Blood Culture - Preliminary Blood No Growth after 48 hours 03/25/21 20:09 Blood Culture - Preliminary Blood No Growth after 48 hours 03/27/21 08:30 Anaerobic Culture - Preliminary Shoulder - Right Assessment and Plan (1) Abscess Narrative/Plan: Her wound looks good, surgery produced no findings of infection, she is afebrile, WBC normal, and cultures negative thus far. She may be discharged to home from orthopedic standpoint and when okay with IM/ID. Continue routine orthopedic protocol post operatively including pain management, wound care, antibiotics, medical management and DVT prophylaxis. Current Visit: Yes Status: Acute Priority: Medium Code(s): L02.91 - CUTANEOUS ABSCESS, UNSPECIFIED SNOMED Code(s): 665274079 (2) Cellulitis of arm, right Current Visit: No Status: Acute Priority: Medium Code(s): L03.113 - CELLULITIS OF RIGHT UPPER LIMB SNOMED Code(s): 579575822 Time with Patient: Less than 30
[2021-03-28] MEDS: HYDROcodone/APAP 10-325MG 1 EACH TAB PO PRN (09:40)
--- NOTE | 2021-03-28 12:05 | P.PN ---
Subjective Progress Note Date: 03/28/21 Aline Bolaños is a 65 yo F with PMH of cellulitis and abscess of the RUE for which she had been receiving IV antibiotics who presented to the ED at the request of her physician. She had been doing well since her discharge after I+D and washout with Ortho, but over the past few days developed increasing pain and swelling in the RUE. She denies any specific injury or trigger. She underwent an outpatient CT scan which was concerning for recurrent abscess. On presentation vitals stable, WBC 7.2k, labs otherwise unremarkable. She denies fevers or chills but endorses arm pain. 03/27/2021 just returning from I&D. Tolerated procedure well. Wearing sling, positive pain. Labs pending. Maintained on gentle IV fluid hydration and ceftezolin. Afebrile. Denies chest pain, palpitations or shortness of breath. 03/28/21 status post I&D right shoulder ,postop day #1. Pain controlled .Maintained on IV fluid hydration and IV antibiotics of cefazolin .afebrile, normal WBC, mild tachycardia. Cultures pending.Diet intake, no nausea or vomiting. Hemoglobin decreased to 9.7. Objective - Vital Signs Vital signs: Vital Signs Temp 98.1 F 03/28/21 07:00 Pulse 98 03/28/21 08:00 Resp 18 03/28/21 08:00 BP 121/73 03/28/21 07:00 Pulse Ox 94 L 03/28/21 07:00 Intake & Output 03/27/21 03/28/21 03/28/21 18:59 06:59 18:59 Intake Total 2547 300 Output Total 20 Balance 2527 300 Intake: IV 501 Intake, IV Titration 850 Amount Lactated Ringers 1,000 ml 800 @ 100 mls/hr IV .Q10H [facility] Rx#:[id number] ceFAZolin 2 gm In Sodium 50 Chloride 0.9% 50 ml @ 100 mls/hr IVPB Q8HR [facility] Rx# :[id number] Oral 1196 300 Output: Estimated Blood Loss 20 Other: Voiding Method Toilet Toilet # Voids 2 - Exam General: Sitting up at bedside, NAD. Vitals reviewed Eyes: PERRL, EOMI, conjunctiva normal. HENT: normocephalic, mucus membranes moist Neck: supple, no JVD, wearing sling over affected extremity Lungs: normal respiratory effort, bilateral bases diminished CV: Regular rate and rhythm, no murmur. Peripheral pulses 2+ Abdomen: soft, nondistended, no organomegaly MSK: RUE tender to palpation, 1+ edema, Skin: warm and dry. Neuro: A&Ox3, normal mood and affect - Labs CBC & Chem 7: 03/28/21 05:34 03/27/21 10:02 Labs: Abnormal Lab Results - Last 24 Hours (Table) 03/28/21 Range/Units 05:34 RBC 3.19 L (4.10-5.20) X 10*6/uL Hgb 9.7 L (12.0-15.0) g/dL Hct 30.3 L (37.2-46.3) % RDW 14.8 H (11.5-14.5) % MPV 9.1 L (9.5-12.2) fL Microbiology - Last 24 Hours (Table) 03/27/21 08:30 Gram Stain - Preliminary Shoulder - Right Wound Culture - Preliminary 03/25/21 20:09 Blood Culture - Preliminary Blood No Growth after 48 hours 03/25/21 20:09 Blood Culture - Preliminary Blood No Growth after 48 hours 03/27/21 08:30 Anaerobic Culture - Preliminary Shoulder - Right Assessment and Plan Assessment: Cellulitis and abscess of right upper extremity, status post I&D. Cultures pe nding Hypertension Major depression COPD Plan: Continue on current medication regime ,monitoring and symptomatic treatment. Maintain antibiotics as per ID. Continue with gentle IV fluid hydration. Maintain aggressive pulmonary toileting with incentive spirometer reinforced. Pain management. Cleared by orthopedic surgery for DC. Discharge planning in progress pending finalizing of cultures, final DC recommendations and clearance per infectious disease. The impression and plan of care has been dictated as directed. : I performed a history and examination of this patient, discussed the same with the dictator. I agree with the dictator's note ,documented as a scribe. Any additional findings or plans will be noted.
--- NOTE | 2021-03-28 17:38 | PN ---
PROGRESS NOTE DATE OF SERVICE: 03/28/2021 REASON FOR FOLLOWUP: Right shoulder abscess and cellulitis. INTERVAL HISTORY: The patient is afebrile. The patient is currently breathing comfortably. The patient denies having any chest pain, shortness of breath or cough. Pain to the right shoulder is currently about 8. No vomiting. No abdominal pain or diarrhea. PHYSICAL EXAMINATION: Blood pressure 130/75, pulse of 99, temperature 98. She is 94% on room air. GENERAL DESCRIPTION: General description is a middle-aged female lying in bed in no distress. RESPIRATORY SYSTEM: Unlabored breathing. Clear to auscultation anteriorly. HEART: S1, S2. Regular rate and rhythm. ABDOMEN: Soft. No tenderness. Right shoulder is currently dressed. No obvious drainage on the dressing. LABS: Hemoglobin 11.3, white count 6.45. Culture so far pending. DIAGNOSTIC IMPRESSION AND PLAN: Patient with right shoulder abnormal CT concerning for an abscess. Patient is status post surgical drainage with no evidence of any purulent drainage. Cultures will be followed. If they remain negative, recommend no antibiotic on discharge. Continue cefazolin at this point. Continue supportive care. MMODL / IJN: [id number] /
[2021-03-28] MEDS: MONTELUKAST 10 MG TAB PO SCH (20:21)
[2021-03-28] MEDS: OLANZapine 10 MG TAB PO SCH (20:21)
[2021-03-29] MEDS: HYDROmorphone 1 MG/ML 1 ML SYRINGE IVP PRN ×6 (00:38→22:53)
[2021-03-29] MEDS: LACTATED RINGERS 1,000 ML IV SCH ×3 (00:39→21:19)
[2021-03-29] MEDS: IPRATROPIUM 0.5 MG/2.5 ML NEBU INHALATION SCH ×4 (06:55→19:14)
[2021-03-29] MEDS: FORMOTEROL FUMARATE 20 MCG/2 ML NEBU INHALATION SCH ×2 (06:55→19:14)
[2021-03-29] MEDS: BACLOFEN 10 MG TAB PO SCH ×2 (07:36→21:18)
[2021-03-29] MEDS: PANTOPRAZOLE 40 MG TABLET PO SCH (07:36)
[2021-03-29] MEDS: DULoxetine HCL 60 MG CAPSULE.DR PO SCH (07:36)
[2021-03-29] MEDS: NON FORMULARY DRUG (Lisdexamfetamine Dimesylate [Vyvanse] 50 MG Capsule) PO SCH (07:43)
[2021-03-29] MEDS: OXYBUTYNIN 15 MG TAB.ER.24 PO SCH ×2 (07:44→21:18)
[2021-03-29] MEDS: buPROPion XL 150 MG TAB.ER.24H PO SCH (07:44)
[2021-03-29] MEDS: LISINOPRIL-HCTZ 10-12.5 MG 1 EACH TAB PO SCH (07:44)
[2021-03-29 09:22] LABS: Basophils # (A) 0.04 X 10*3/uL (0.00-0.10); Basophils % (A) 0.5 %; Eosinophils # (A) 0.26 X 10*3/uL (0.04-0.35); Eosinophils % (A) 3.5 %; HCT 31.6 % (37.2-46.3); Lymphocytes # (A) 2.31 X 10*3/uL (0.90-5.00); MCH 30.9 pg (27.0-32.0); MCHC 31.6 g/dL (32.0-37.0); MCV 97.5 fL (80.0-97.0); Monocytes % (A) 16.1 %; Neutrophils # (A) 3.61 X 10*3/uL (1.80-7.70); Neutrophils % (A) 48.5 %; Platelet Count 279 X 10*3/uL (140-440); RBC 3.24 X 10*6/uL (4.10-5.20); RDW 14.9 % (11.5-14.5); WBC 7.45 X 10*3/uL (4.50-10.00)
[2021-03-29] MEDS: HYDROcodone/APAP 10-325MG 1 EACH TAB PO PRN ×2 (09:52→15:21)
[2021-03-29 10:38] LABS: African American GFR (CKD) 118.5 (60.0-200.0); Anion Gap 7.1 mmol/L (4.00-12.00); Calcium 9.2 mg/dL (8.7-10.3); Carbon Dioxide 27.9 mmol/L (21.6-31.8); Non-African American GFR(CKD) 102.3 (60.0-200.0); Potassium 4.1 mmol/L (3.5-5.5)
--- NOTE | 2021-03-29 11:30 | P.PN ---
Progress Note - Text Progress Note Date: 03/29/21 Orthopedics: History of present illness: Patient is a pleasant 65-year-old. She is status post day 2 status post of the right shoulder. She does continue to have some right shoulder pain but states her pain is well-controlled. Her pain is different than was prior to incision and drainage. She is able to perform active range of motion of her right elbow continues to her hand. She has been maintaining a sling for the right upper extremity. They have continue with dressing changes as needed. She does continue to have a decline in place of the left upper extremity. She continues to be seen and examined by Dr. Walker in infectious disease. He was recently examined by medicine as well. She is currently on Kefzol per infectious disease. Patient history: She is known to have previously undergone an ORIF of the right shoulder performed on 11/07/[address] Sekou Martínez for her right proximal humerus fracture. She had been improving postoperatively. She sustained a fall at home on 01/08/2021 and presented to [facility]. She was transferred to [facility] for further evaluation. She was experiencing significant swelling and pain in her right upper extremity. Multiple imaging modalities were taken. She was found to have a right shoulder subcutaneous infection. She underwent surgical intervention with Dr. Sekou Martínez on 01/10/2021 with removal of her previously placed right proximal humerus hardware with right shoulder irrigation and debridement of deep infection. Physical Exam: Patient is awake, alert, and oriented 3 Vital signs stable Good chest excursion with deep inspiration and expiration Dressing is removed and reapplied over the right shoulder during physical examination Sutures remain intact over the right shoulder with no active drainage Mild erythema over the right shoulder No bruising over the surgical site Some pain on palpation over the surgical site Patient is able to wiggle fingers of the right hand without difficulty Neurovascular intact right upper extremity Pertinent studies: Gram stain and aerobic culture of the right shoulder taken on 03/27/2021: No polymorphonuclear leukocytes; no organisms seen; no growth after 48 hours on aerobic wound culture Assessment: Status post incision and drainage of the right shoulder performed on 12/25/2020 Right upper extremity cellulitis History ORIF of the right shoulder performed on 11/07/2020 for right proximal humerus fracture History of removal of right proximal humerus hardware with right shoulder irrigation and debridement performed on 01/10/2021 COPD Hypertension Plan: 1. Patient will continue with postoperative care for her right shoulder. Patient may continue with dressing changes over the right shoulder as needed. She will keep her sutures intact till her follow-up appointment. She is encouraged to continue using a sling for support for her right upper extremity. She may participate neck to release to her tolerance of the right upper extremity. She may shower without a dressing intact if her surgical site remains dry over the next 72 hours. She will plan to follow-up with Dr. Sekou Martínez in the outpatient setting approximately 10 days for further evaluation. Gram stain wound final results and aerobic wound culture final results did not show evidence of infection in her right shoulder. She is clear for discharge from an orthopedic standpoint. 2. She continues to be seen and examined by infectious disease and medicine. She has a PICC line in place. She will continue with antibiotics per the recommendations of infectious disease.
--- NOTE | 2021-03-29 17:18 | P.PN ---
Subjective Progress Note Date: 03/29/21 Principal diagnosis: Cellulitis and abscess of right upper extremity, status post I&D. Aline Bolaños is a 65 yo F with PMH of cellulitis and abscess of the RUE for which she had been receiving IV antibiotics who presented to the ED at the request of her physician. She had been doing well since her discharge after I+D and washout with Ortho, but over the past few days developed increasing pain and swelling in the RUE. She denies any specific injury or trigger. She underwent an outpatient CT scan which was concerning for recurrent abscess. On presentation vitals stable, WBC 7.2k, labs otherwise unremarkable. She denies fevers or chills but endorses arm pain. 03/27/2021 just returning from I&D. Tolerated procedure well. Wearing sling, positive pain. Labs pending. Maintained on gentle IV fluid hydration and ceftezolin. Afebrile. Denies chest pain, palpitations or shortness of breath. 03/28/21 status post I&D right shoulder ,postop day #1. Pain controlled . Maintained on IV fluid hydration and IV antibiotics of cefazolin .afebrile, normal WBC, mild tachycardia. Cultures pending.Diet intake, no nausea or vomiting. Hemoglobin decreased to 9.7. 03/29/2021 Patient is currently sitting in chair comfortably. Right shoulder sling in place. No complaints of worsening pain. Status post right upper extremity incision and drainage of abscess. Patient is being continued on antibiotic on cefazolin pending final culture report. Patient has been afebrile. No headache or dizziness or lightheadedness. No chest pain or shortness of breath. Orthopedic surgery is on board. Current medications reviewed. Objective - Vital Signs Vital signs: Vital Signs Temp 97.9 F 03/29/21 07:16 Pulse 85 03/29/21 07:16 Resp 20 03/29/21 08:00 BP 127/81 03/29/21 07:16 Pulse Ox 94 L 03/29/21 07:16 Intake & Output 03/28/21 03/29/21 03/29/21 18:59 06:59 18:59 Intake Total 600 500 800 Balance 600 500 800 Intake: IV 600 Lactated Ringers 1,000 ml 600 @ 100 mls/hr IV .Q10H [facility] Rx#:[id number] Oral 600 500 200 Other: Voiding Method Toilet Toilet Toilet # Voids 4 2 1 - Exam - Exam General: Sitting up at bedside, NAD. Vitals reviewed Eyes: PERRL, EOMI, conjunctiva normal. HENT: normocephalic, mucus membranes moist Neck: supple, no JVD, wearing sling over affected extremity Lungs: normal respiratory effort, bilateral bases diminished CV: Regular rate and rhythm, no murmur. Peripheral pulses 2+ Abdomen: soft, nondistended, no organomegaly MSK: RUE tender to palpation, 1+ edema, Skin: warm and dry. Neuro: A&Ox3, normal mood and affect - Labs CBC & Chem 7: 03/29/21 05:58 03/29/21 05:58 Labs: Abnormal Lab Results - Last 24 Hours (Table) 03/29/21 Range/Units 05:58 RBC 3.24 L (4.10-5.20) X 10*6/uL Hgb 10.0 L (12.0-15.0) g/dL Hct 31.6 L (37.2-46.3) % MCV 97.5 H (80.0-97.0) fL MCHC 31.6 L (32.0-37.0) g/dL RDW 14.9 H (11.5-14.5) % MPV 9.0 L (9.5-12.2) fL Monocytes # 1.20 H (0.20-1.00) X 10*3/uL Microbiology - Last 24 Hours (Table) 03/27/21 08:30 Gram Stain - Final Shoulder - Right Wound Culture - Final 03/25/21 20:09 Blood Culture - Preliminary Blood No Growth after 72 hours 03/25/21 20:09 Blood Culture - Preliminary Blood No Growth after 72 hours Assessment and Plan Assessment: Cellulitis and abscess of right upper extremity, status post I&D. Cultures pending History of right shoulder incision and drainage on 12/25/2020, history of ORIF of the right shoulder on 11/07/2020 for right proximal humerus fracture Hypertension Major depression COPD DVT prophylaxis Plan: Continue on current medication regime ,monitoring and symptomatic treatment. Maintain antibiotics as per ID. Continue with gentle IV fluid hydration. Maintain aggressive pulmonary toileting with incentive spirometer reinforced. Pain management. Cleared by orthopedic surgery for DC. Discharge planning in progress pending finalizing of cultures, final DC recommendations and clearance per infectious disease. Time with Patient: Greater than 30
[2021-03-29] MEDS: OLANZapine 10 MG TAB PO SCH (21:18)
[2021-03-29] MEDS: MONTELUKAST 10 MG TAB PO SCH (21:18)
[2021-03-30 02:23] VITALS: TEMP 97.7
[2021-03-30] MEDS: HYDROmorphone 1 MG/ML 1 ML SYRINGE IVP PRN (05:58)
--- NOTE | 2021-03-30 07:31 | PN ---
PROGRESS NOTE DATE OF SERVICE: 03/29/2021 REASON FOR FOLLOW UP: Rash and cellulitis. INTERVAL HISTORY: Patient is afebrile. The patient is breathing comfortably. The patient denies having any chest pain, shortness of breath, cough. Pain to the right shoulder currently. No vomiting or diarrhea. PHYSICAL EXAMINATION: Her blood pressure is 114/57 with a pulse of 90, temperature 98. She is 96% on room air. General description is a middle-aged female up in the room in no distress. Respiratory system: Unlabored breathing, clear to auscultation anteriorly. Heart S1, S2. Regular rate and rhythm. Abdomen soft, no tenderness. Right shoulder is currently dressed. No drainage on the dressing. LABS: White count normal. Cultures so far negative. DIAGNOSTIC IMPRESSION AND PLAN: Patient admitted to the hospital with right shoulder abnormal CT concerning for increasing fluid, concerning for a septic arthritis and abscess. The patient is status post I and D with no evidence of any purulence. Culture has been negative so far and remains to be negative. Recommend to discontinue the PICC line and no need for antibiotic therapy on discharge. Continue supportive care. MMODL / IJN: [id number] /
[2021-03-30] MEDS: BACLOFEN 10 MG TAB PO SCH (08:07)
[2021-03-30] MEDS: DULoxetine HCL 60 MG CAPSULE.DR PO SCH (08:07)
[2021-03-30] MEDS: LACTATED RINGERS 1,000 ML IV SCH (08:07)
[2021-03-30] MEDS: OXYBUTYNIN 15 MG TAB.ER.24 PO SCH (08:07)
[2021-03-30] MEDS: buPROPion XL 150 MG TAB.ER.24H PO SCH (08:07)
[2021-03-30] MEDS: PANTOPRAZOLE 40 MG TABLET PO SCH (08:07)
[2021-03-30] MEDS: NON FORMULARY DRUG (Lisdexamfetamine Dimesylate [Vyvanse] 50 MG Capsule) PO SCH (08:08)
[2021-03-30] MEDS: LISINOPRIL-HCTZ 10-12.5 MG 1 EACH TAB PO SCH (08:09)
[2021-03-30] MEDS: HYDROcodone/APAP 10-325MG 1 EACH TAB PO PRN (08:25)
[2021-03-30] MEDS: FORMOTEROL FUMARATE 20 MCG/2 ML NEBU INHALATION SCH (08:29)
[2021-03-30] MEDS: IPRATROPIUM 0.5 MG/2.5 ML NEBU INHALATION SCH ×2 (08:29→11:13)
--- NOTE | 2021-03-30 10:47 | P.PN ---
Progress Note - Text Progress Note Date: 03/30/21 Orthopedics: History of present illness: Patient is a pleasant 65-year-old. She is status post day 3 for incision and drainage of the right shoulder. She does continue to have some right shoulder pain but states her pain is well-controlled. Her pain is different than was prior to incision and drainage. She is able to perform active range of motion of her right elbow continues to her hand. She has been maintaining a sling for the right upper extremity. They have continue with dressing changes as needed. She does continue to have a sling in place of the left upper extremity. She continues to be seen and examined by Dr. Walker in infectious disease. He was recently examined by medicine as well. She is currently on Kefzol per infectious disease. Nursing states patient will most likely be cleared for discharge by medicine tomorrow. Patient history: She is known to have previously undergone an ORIF of the right shoulder performed on 11/07/[address] Sekou Martínez for her right proximal humerus fracture. She had been improving postoperatively. She sustained a fall at home on 01/08/2021 and presented to [facility]. She was transferred to [facility] for further evaluation. She was experiencing s ignificant swelling and pain in her right upper extremity. Multiple imaging modalities were taken. She was found to have a right shoulder subcutaneous infection. She underwent surgical intervention with Dr. Sekou Martínez on 01/10/2021 with removal of her previously placed right proximal humerus hardware with right shoulder irrigation and debridement of deep infection. Physical Exam: Patient is awake, alert, and oriented 3 Vital signs stable Good chest excursion with deep inspiration and expiration Dressing is removed and new dressing is applied over the right shoulder during physical examination Sutures remain intact over the right shoulder with no active drainage Mild erythema over the right shoulder No bruising over the surgical site Some pain on palpation over the surgical site Patient is able to wiggle fingers of the right hand without difficulty Neurovascular intact right upper extremity Pertinent studies: Gram stain and aerobic culture of the right shoulder taken on 03/27/2021: No polymorphonuclear leukocytes; no organisms seen; no growth after 48 hours on aerobic wound culture Assessment: Status post incision and drainage of the right shoulder performed on 12/25/2020 Right upper extremity cellulitis History ORIF of the right shoulder performed on 11/07/2020 for right proximal humerus fracture History of removal of right proximal humerus hardware with right shoulder irrigation and debridement performed on 01/10/2021 COPD Hypertension Plan: 1. We will continue with her plan as previously set forth. Patient will continue with postoperative care for her right shoulder. Patient may continue with dressing changes over the right shoulder as needed. She will keep her sutures intact till her follow-up appointment. She is encouraged to continue using a sling for support for her right upper extremity. She may participate in activities to her tolerance of the right upper extremity. She may shower without a dressing intact if her surgical site remains dry over the next 72 hours. She will plan to follow-up with Dr. Sekou Martínez in the outpatient setting approximately 10 days for further evaluation. Gram stain wound final results and aerobic wound culture final results did not show evidence of infection in her right shoulder. She is clear for discharge from an orthopedic standpoint. 2. She continues to be seen and examined by infectious disease and medicine. She has a PICC line in place. She will continue with antibiotics per the recommendations of infectious disease.
[2021-03-30 12:32] VITALS: RESP 20
[2021-03-30 12:49] VITALS: BP 118/67; PULSE 86
== END 2021-03-30 13:35 | disposition home health service (06) | DRG 501 ==
LOC: EC 18:33 → 1SOBS 21:15 → 6NMEDSUR 03-26 02:54 → OBSVTOIN 03-27 09:38
PROVIDERS: ADMIT Family Medicine; ATTEND Family Medicine
PROC: 0J9D0ZZ Drainage of Right Upper Arm Subcutaneous Tissue and Fascia, Open Approach (ICD-10-PCS; principal; 2021-03-27 08:00)
DX: T84.59XA Infection and inflammatory reaction due to other internal joint prosthesis, initial encounter (principal); L02.413 Cutaneous abscess of right upper limb; L03.113 Cellulitis of right upper limb; F32.9 Major depressive disorder, single episode, unspecified; F41.9 Anxiety disorder, unspecified; F90.9 Attention-deficit hyperactivity disorder, unspecified type; I10 Essential (primary) hypertension; J44.9 Chronic obstructive pulmonary disease, unspecified; Z79.899 Other long term (current) drug therapy; Z80.8 Family history of malignant neoplasm of other organs or systems; Z88.1 Allergy status to other antibiotic agents; Z87.891 Personal history of nicotine dependence; Z90.710 Acquired absence of both cervix and uterus; Z96.641 Presence of right artificial hip joint; M19.90 Unspecified osteoarthritis, unspecified site; M25.40 Effusion, unspecified joint
CPT/HCPCS: 36415; 80048; 80053; 85025; 85652; 86140; 87040; 87070; 87075; 87205; 94640; 99284